=== PATIENT | male | born 1955 | race Caucasian/White ===

== ENCOUNTER 2021-10-31 02:51 | Outpatient (CLI) | payer BC, SELFPAY ==
[2021-10-31 10:08] LABS: MCH 31.1 pg (27.0-33.0); MCHC 34.1 % (32.0-36.0); MCV 91 fL (80-95); MPV 10.1 fL (8.0-11.0); Platelet Count 244 10^3/uL (130-400); RBC 4.83 10^6/uL (4.36-5.78); RDW 12.1 % (11.8-14.1); RDW-SD 40.4 fL
[2021-10-31 10:25] LABS: ALT 22 U/L (16-63); AST 16 U/L (15-37); Albumin 3.8 g/dL (3.4-5.0); Alkaline Phosphatase 84 U/L (46-116); Anion Gap 7.4 mmol/L (3-11); BUN 22 mg/dL (7-18); Bilirubin, Total 0.8 mg/dL (0.2-1.0); CO2 30.6 mmol/L (21.0-32.0); CREATININE 0.9 mg/dL (0.70-1.30); Calcium 8.9 mg/dL (8.5-10.1); Calculated LDL 133 mg/dL (<100); Chloride 101 mmol/L (98-107); Cholesterol 207 mg/dL (<200); Glucose 97 mg/dL (74-106); HDL Cholesterol 56 mg/dL (40-60); Potassium 4.6 mmol/L (3.5-5.1); Sodium 139 mmol/L (136-145); Total Protein 7.2 g/dL (6.4-8.2); Triglyceride 91 mg/dL (<150)
[2021-10-31 19:06] LABS: PSA, Screening 0.3 ng/mL (<=4.5)
[2021-11-01 09:45] LABS: Hepatitis C Ab w Rflx HCV PCR Negative (Negative)
[2021-11-01 09:52] LABS: Lyme Ab w Rflx to Lyme Confirm Negative (Negative)
[2021-11-02 16:18] LABS: Anaplasma phagocytophilum Negative (Negative); B. miyamotoi PCR Negative (Negative); Babesia divergens/MO-1 Negative (Negative); Babesia duncani Negative (Negative); Babesia microti Negative (Negative); Ehrlichia chaffeensis Negative (Negative); Ehrlichia ewingii/canis Negative (Negative); Ehrlichia muris eauclairensis Negative (Negative)
== END 2021-10-31 02:52 | disposition home or self-care (01) ==
LOC: LBO 02:51
PROVIDERS: PCP Nurse Practitioner; Visit Provider Nurse Practitioner
DX: Z00.00 Encounter for general adult medical examination without abnormal findings
CPT/HCPCS: 36415; 80053; 80061; 84153; 85027; 86803; 87798; 86618

== ENCOUNTER 2022-08-08 09:45 | Outpatient (REF) | payer MEDICARE, SELFPAY | END 2022-08-08 09:46 | disposition home or self-care (01) | LOC: LBN 09:45 | PROVIDERS: PCP Nurse Practitioner; Referring Provider Nurse Practitioner; Visit Provider Nurse Practitioner | DX: R31.9 Hematuria, unspecified (principal) | CPT/HCPCS: 87086 ==

== ENCOUNTER 2022-08-30 00:41 | Outpatient (CLI) | payer MEDICARE, SELFPAY ==
--- NOTE | 2022-08-30 08:00 | DI.CT_ITS ---
Exam(s) CT ABDOMEN PELVIS WO/W EXAM: CT ABDOMEN PELVIS WO/W CLINICAL HISTORY: New episode hematuria,Former smoker,R31.0. TECHNIQUE: Imaging Protocol: Axial computed tomography images with coronal and sagittal reformatted images were created and reviewed CONTRAST MATERIAL: Intravenous: Omnipaque-350 100cc Oral: None COMPARISON: No exams were available for comparison FINDINGS: VISUALIZED LUNG BASES: No nodules nor pleural effusions evident. ABDOMEN: There is no ascites. LIVER: There are no focal hepatic lesions evident. No dilated intrahepatic ducts. GALLBLADDER/BILIARY: No obvious gallbladder pathology. CBD is not dilated. PANCREAS: No evidence of pancreatic mass nor dilatation of the pancreatic duct. SPLEEN: Spleen is not enlarged. No obvious intrasplenic lesions. Splenic and portal veins are paten t. ADRENALS: There are no significant adrenal masses. KIDNEYS:No cysts evident. No solid renal masses. No calculi nor hydronephrosis.. ABDOMINAL AORTA: Abdominal aorta is not enlarged. LYMPH NODES:There is no retroperitoneal nor paraaortic adenopathy. ABDOMINAL WALL: No evidence of significant anterior abdominal wall nor inguinal hernia. GI: There is no evidence of bowel obstruction, free air, nor abscess. PELVIS: GI: No evidence of appendicitis.There is extensive sigmoid diverticulosis. No obvious acute divertic ulitis. LYMPH NODES: There is no intrapelvic nor inguinal adenopathy. REPRODUCTIVE: Mildly enlarged prostate. URINARY BLADDER: There is an ominous mass in the left side of the urinary bladder wall which is suspi cious for neoplasm and measures approximately 3 cm length along the wall by 1.4 cm. This is adjacent to the ureterovesical junction on the left side but the ureter is not dilated. There are no calculi in the urinary bladder. OSSEOUS: No fractures and no significant osseous lesions. IMPRESSION: 1. There is a mass in the wall of the left side of the urinary bladder highly suspicious for neoplasm . This is adjacent to the left ureterovesical junction but there is no dilatation of the left ureter at this time. 2. No significant focal findings in the kidneys. 3. Extensive sigmoid diverticulosis. No evidence of acute diverticulitis. 4. Mildly enlarged prostate gland. Wet read created. RADIATION DOSE DELIVERED: 2,946.28mGy.cm Total DLP DATA REPOSITORY: All CT scans at this facility are submitted to the National Radiology Data Registry (NRDR) Dose Index Registry (DIR) with the [employer] (ACR). RADIATION OPTIMIZATION: All CT scans at this facility use at least one of these dose optimization te chniques: automated exposure control; mA and/or kV adjustment per patient size (includes targeted exa ms where dose is matched to clinical indication); or iterative reconstruction.
[2022-08-30 12:33] LABS: CREATININE 0.9 mg/dL (0.70-1.30); Estimated GFR 93.03 (mL/min/1.73m2)
[2022-08-30] MEDS: Omnipaque 350 MG/ML 100 ML BTL IJ (13:06)
[2022-08-30] MEDS: Normal Saline - Diluent 50 ML VIAL IJ (13:09)
== END 2022-08-30 01:01 ==
LOC: DI 00:41
PROVIDERS: PCP Nurse Practitioner; Visit Provider Nurse Practitioner
DX: R31.0 Gross hematuria (principal); Z87.891 Personal history of nicotine dependence
CPT/HCPCS: 74178; 82565; J3490

== ENCOUNTER → 2022-09-02 14:02 | Outpatient (BNVA) | payer MEDICARE, SELFPAY | PROVIDERS: PCP Nurse Practitioner; Referring Provider Nurse Practitioner; Visit Provider Urology | DX: N32.89 Other specified disorders of bladder (principal) | CPT/HCPCS: 99204 ==

== ENCOUNTER 2022-09-03 06:05 | Day surgery (SDC) | payer MEDICARE, SELFPAY ==
[2022-09-03] VITALS (9 sets, daily range): BP systolic 85–106; BP diastolic 49–77; PULSE 48–81; RESP 15–18; TEMP 36–36.5; O2SAT 96–99; BMI 23.6
--- NOTE | 2022-09-03 06:35 | W.PM.HP.N ---
Date of service: 09/03/22 Time of Service: 06:35 Assessment and Plan Assessment and plan (1) Bladder mass: Status: Acute Assessment and plan: We will perform cystoscopy with transurethral resection of the identified bladder mass. His follow-up treatments and prognosis will really depend on the pathology. History of Present Illness History of Present Illness Chief Complaint: Bladder mass Narrative: This is a 67-year-old gentleman who noticed gross painless hematuria less than a month ago. He presented to his primary care provider. His urine culture showed no bacterial infection. A CT urogram was obtained and there was a mass identified on the left side of the bladder. He presents now for transurethral resection of his bladder mass. He does have a history of smoking but quit over 30 years ago. He has no known bleeding disorders. He has no family history of urologic malignancy. Review of Systems Narrative: No fevers or chills No vision change or dysphasia No diabetes or thyroid dysfunction No shortness of breath, cough or hemoptysis No chest pain or palpitations No nausea, vomiting, hepatitis, ulcers, jaundice, diarrhea or constipation History of migraines. He has taken [id number] Excedrin Migraine in the past but his last dose was over 3 weeks ago. No seizures, strokes or peripheral neuropathy No bleeding disorders or anemia No gout PFSH All Active Problems (Updated 09/02/22 @ 16:19 by Francisco J Harris MD) Bladder mass (Acute) Corns and callosities (Acute) Family History (Updated 10/23/21 @ 08:53 by Justyna Henriquez RN) Sister Breast cancer Social History (Updated 11/15/21 @ 09:15 by Meche Norman LPN) Smoking/Tobacco Use Status: Former Tobacco Use Tobacco: How many years used: 5 Second Hand Exposure: No Smoking risk assessment performed?: Yes Alcohol Intake: current Alcohol Intake frequency: a few times a month Alcohol type: wine Counseling given: No Drug use: Occasionally Substance use type: marijuana Adopted: No Caregiver/Support person: No Foster care: No Housing: house Number of Children: 0 Communication Needs: None Education Level: college Details: associate's degree Do you need help understanding health information?: Rarely current occupation: musician Pets and animals: Yes Pets and animals: dog(s) Do you think of yourself as: straight/heterosexual Current gender identity: male What is your relationship status?: How often do you talk on the phone with friends or family?: twice per week How often do you get together with friends or relatives?: twice per week Do you belong to any clubs or organized social groups?: no Panel score (0-1 are the most socially isolated patients): 1 What type of physical activity do you participate in: walking Duration: 15-30 minutes/day Frequency: 3-4 times per week Jessica/Catholic: None Special jessica needs: No Seatbelt use: always Drive intox or ride w/intox hammer driver: No Meds Allergies and Home Medications Allergies Allergy/AdvReac Type Severity Reaction Status Date / Time Penicillins Allergy Unknown Verified 09/03/22 06:20 Home Medications Medication Instructions Recorded Confirmed Type Unknown [No Known Home Meds] 10/23/21 09/03/22 History Exam Narrative Exam Narrative: He appears comfortable but nervous His vital signs are documented elsewhere This chest wall motion is normal. His lungs are clear Cardiac : regular rate and rhythm with no murmurs His abdomen is soft with no mass He is awake and alert Time Spent Time spent with Patient: <40 minutes Time was spent: other
[2022-09-03] MEDS: Ciprofloxacin 500 MG TAB PO (06:44)
--- NOTE | 2022-09-03 06:54 | W.ANESPRE ---
General Info Date of Service Date Performed: 09/03/22 Height: 6 ft 3 in Weight: 85.9 kg Body Mass Index (BMI): 23.6 Surgical Procedure: Operation Date: 09/03/22 07:40 Proposed Procedure Side Surgeon p Transurethral Resection Bladder Tumor Francisco J Harris MD Meds Allergies and Home Medications Allergies Allergy/AdvReac Type Severity Reaction Status Date / Time Penicillins Allergy Unknown Verified 09/03/22 06:20 Home Medication Medication Instructions Recorded Unknown [No Known Home Meds] 10/23/21 Current Visit Medications: Current Medications Generic Name Dose Route Start Last Admin Trade Name Freq PRN Reason Stop Dose Admin Ciprofloxacin HCl 500 mg 09/03/22 06:00 09/03/22 06:44 Ciprofloxacin 500 Mg Tab PO 09/03/22 16:00 500 mg PREOP RAFFY Administration Ringer's Solution 1,000 mls @ 80 mls/hr 09/03/22 06:00 IV 10/02/22 23:59 INFUSION RAFFY IV Miscellaneous Supplies 1 each 09/03/22 06:00 Iv Access IV 10/02/22 23:59 DIRECTED RAFFY Sodium Chloride 0 ml 09/03/22 06:00 Normal Saline Flush 10 Ml Syr IV 10/02/22 23:59 PRN PRN Sodium Chloride 0 ml 09/03/22 06:00 Normal Saline 10 Ml Vial IJ 10/02/22 23:59 DIRECTED PRN Sterile Water 0 ml 09/03/22 06:00 Water,Injection,Sterile 10 Ml Vial IJ 10/02/22 23:59 DIRECTED PRN PFSH Active Problems Active Problems: Problem Status Onset Code Bladder mass N32.89 Corns and callosities L84 Tobacco Smoking/Tobacco Use Status: Former Tobacco Use Passive smoking exposure: No Second hand exposure: No Alcohol Alcohol Intake: current Alcohol intake frequency: a few times a month Alcohol type: wine Substance Use Substance use: Occasionally Substance use type: marijuana Vital Signs and Lab Results Vital Signs Most Recent Vital Signs in EMR: Most Recent Vital Signs Temp Pulse Resp BP Pulse Ox 36.5 C 81 16 103/76 97 09/03/22 06:21 09/03/22 06:21 09/03/22 06:21 09/03/22 06:21 09/03/22 06:21 Lab Results Blood Type / Crossmatch: No Data to Display Complete Blood Count: No Data to Display Complete Metabolic Panel: Creatinine 0.9 mg/dL (0.70-1.30) 08/30/22 12:10 Est GFR (CKD-EPI 2020) 93.03 (mL/min/1.73m2) 08/30/22 12:10 Liver Function Panel: No Data to Display Coagulation Panel: No Data to Display Cardiac Panel: No Data to Display Arterial Blood Gas: No Data to Display Venous Blood Gas: No Data to Display Pancreas Panel: No Data to Display Thyroid Panel: No Data to Display Infectious Disease: No Data to Display Blood Cultures: No Data to Display Toxicology Panel: No Data to Display Anesthesia Assessment and Plan Anesthesia History Personal History: No History of General Anesthesia Family History: No Family History of Anesthesia Complications Exercise Tolerance Exercise Tolerance: Metabolic Equivalents>4 Pertinent Negatives Pertinent Negatives: No Symptoms of GERD, No Major Cardiovascular Symptoms or Complaints, No Major Pulmonary Symptoms or Complaints and No History of CVA/TIA Cardiac & Pulmonary Exam Cardiac Exam: Normal S1/S2 Heart Sounds Pulmonary Exam: Clear Bilateral Breath Sounds Implantable Cardiac Device Does patient have a Pacemaker or an ICD?: No Airway Exam Known Difficult Airway: No Mallampati Class: 2 Mouth Opening: Normal (> 3cm) Thyromental Distance: Greater than 3 cm Neck Range of Motion: Full ROM Neck Circumference: Normal Teeth Condition: Normal Dentition and Generalized Poor Dentition ASA Classification ASA Score: ASA 2 Emergency Case?: No NPO Status NPO Status: NPO Clears >2 hours, Solids >8 hours Anesthesia Plan Resuscitation Status: Full Code Anesthesia Technique: General Anesthesia Airway Planned: Natural Airway Monitors Used: Standard Monitors
[2022-09-03] MEDS: Lactated Ringers 1,000 ML 80 ML IV (07:03)
[2022-09-03] MEDS: Lidocaine 2% Jelly 6 ML SYR (07:50)
--- NOTE | 2022-09-03 08:09 | BLADDER_PTH ---
PATIENT: Shadi Castaneda LOC: [facility] U#:[id number] AGE/SX: 67/M ROOM: RE09/03/[address]: Francisco J Harris MD : [id number] BED: DIS: 09/03/2022 SPEC #: [id number] RECD: 09/03/22 13:00 STATUS: GISELLE REBoris #: [id number] MED: 09/03/22 08:[address]: Francisco J Harris DEPT: Surgical Specimen RECD BY: Suyapa Ortega ENTERED: 09/03/22 13:01 SP TYPE: Bladder OTHR DR: Chastity Amor APRN Tissues: 1 - BLADDER BIOPSY Procedures: GROSS AND MICRO LEVEL 5 Comments: [id number]
--- NOTE | 2022-09-03 08:14 | W.PM.DSUDISC ---
Date of service: 09/03/22 Time of Service: 08:14 Discharge Plan Disposition Patient Disposition: Home Condition: Stable Discharge Details Attending Provider: Francisco J Harris Primary Care Provider: Chastity Amor Home Meds and New Rx's Prescriptions: No Action No Known Home Meds Discharge Instructions Additional Instructions: archibald catheter to legbag followup @ 1 week for catheter removal and pathology results Stand Alone Forms: Anesthesia Discharge Inst., Lachelle Cook (DSU) Activity:: no lifting over 10 pounds for @ 1 week Shower/Bathe:: 24 hours Diet:: As Tolerated Discharge Orders Discharge Orders: Discharge Order (Routine); Ordered 09/03/22 Ordered By: Francisco J Harris DS: Diagnosis Discharge Diagnosis (1) Bladder mass: Status: Acute
--- NOTE | 2022-09-03 08:17 | W.PM.OP ---
Date of service: 09/03/22 Time of Service: 08:17 Operative Note Operative Note DATE OF PROCEDURE: 09/03/22 PRE-OP DIAGNOSIS: Bladder mass PROCEDURE: Cystoscopy with TUR Bladder tumor SURGEON: Francisco J Harris ANESTHESIA TYPE: General:No Airway Refer to Anesthesia Record ESTIMATED BLOOD LOSS: 20 PATHOLOGY: other (Bladder tumor) COMPLICATIONS: None Patient was transported to: same day Patient's condition: stable Implants: 18 [place] archibald with 10 cc sterile water in balloon Indications: This is a 67-year-old gentleman who had an episode of gross painless hematuria. He did pass a clot. His urine culture showed no bacterial infection. A CT urogram demonstrated a mass on the left side of the bladder. He presents for transurethral resection of his bladder mass. 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 He was given a dose of preoperative oral antibiotics. After successful induction of general anesthesia, he was placed in the dorsal lithotomy position. His genitalia was prepped and draped. 2% Xylocaine jelly was instilled into the urethra to act as a local anesthetic. A 24 [place] resectoscope sheath was passed through the urethra into the bladder. The urethra and bladder were inspected with the 30 degree lens and the visual obturator. The pendulous, bulbar and membranous urethra's appeared normal with no papillary lesions. The bladder neck was entered and the bladder mucosa was inspected. Both ureteral orifices appeared normal with no blood coming from either side. Just behind the left ureteral orifice on the left lateral wall, there was a papillary lesion that measured between 2 and 5 cm. There was some adherent clot and necrotic tissue. No active bleeding was seen. We then utilized the Slicethepie resectoscope and bipolar cautery to perform transurethral resection of the affected area. All resected tissue was evacuated and sent to pathology for permanent section. Base of the resection site was cauterized with the ball electrode. No residual tumor was identified. Bimanual examination revealed a mobile bladder with no pelvic wall fixation. The bladder was filled with irrigant. The resectoscope was removed. An 18 [place] Archibald catheter was passed through the urethra into the bladder. The catheter balloon was inflated with 10 cc of sterile water. The catheter was hooked to gravity drainage. He tolerated the procedure well with no complications.
[2022-09-03] MEDS: ACETAMINOPHEN 1,000 MG/100 ML BTL 400 MG IVPB (08:36)
[2022-09-03] MEDS: Phenazopyridine 200 MG TAB PO (08:46)
[2022-09-03] MEDS: Hyoscyamine 0.125 MG SL/ORAL/CHEW PO (09:41)
--- NOTE | 2022-09-03 10:26 | W.ANESPOSTOP ---
Postoperative Evaluation Date, Time and Location Date Performed: 09/03/22 Time Performed: 10:26 Patient Location: Day Surgery Unit Vital Signs Most Recent Imported Vital Signs: Most Recent Vital Signs Temp Pulse Resp BP Pulse Ox 36 C L 66 16 106/77 99 09/03/22 10:10 09/03/22 10:10 09/03/22 10:10 09/03/22 10:10 09/03/22 10:10 Pain Score Most Recent Pain Score: Most Recent Pain Score Pain Level 2 09/03/22 09:30 Assessment Mental Status: Awake (Alert & Oriented to Patient Baseline) Airway and Respiratory Function: Patent airway with normal (patient baseline) respiratory exam Cardiovascular Function: Hemodynamically Stable Hydration Status: Adequately Hydrated Nausea & Vomiting: No Nausea or Vomiting Pain: Pain is tolerable per patient (no pain but feeling of urgency secondary to archibald) Peripheral Nerve Block: Patient did not receive a nerve block
== END 2022-09-03 11:13 | disposition home or self-care (01) ==
PROVIDERS: PCP Nurse Practitioner; Visit Provider Urology
PROC: 0TBB8ZZ Excision of Bladder, Via Natural or Artificial Opening Endoscopic (ICD-10-PCS; CPT 52235; principal; 2022-09-03 07:30)
DX: N32.89 Other specified disorders of bladder (principal); R31.0 Gross hematuria
CPT/HCPCS: 52235; 88305; 88307; J0131; J1100; J2250; J2405; J3010; J3490

== ENCOUNTER → 2022-09-09 07:46 | Outpatient (BNVA) | payer MEDICARE, SELFPAY | PROVIDERS: PCP Nurse Practitioner; Referring Provider Nurse Practitioner; Visit Provider Nurse Practitioner Gerontology | DX: Z46.6 Encounter for fitting and adjustment of urinary device (principal); N32.89 Other specified disorders of bladder | CPT/HCPCS: 99212 ==

== ENCOUNTER → 2022-09-20 14:38 | Outpatient (BNVA) | payer MEDICARE, SELFPAY | PROVIDERS: PCP Nurse Practitioner; Referring Provider Nurse Practitioner; Visit Provider Urology | DX: C67.9 Malignant neoplasm of bladder, unspecified (principal); Z48.816 Encounter for surgical aftercare following surgery on the genitourinary system ==

== ENCOUNTER 2022-09-21 07:14 | Emergency (ER) | payer MEDICARE, SELFPAY ==
[2022-09-21 07:19] VITALS: BP 121/79; PULSE 74; RESP 15; TEMP 36.5; O2SAT 99
[2022-09-21 07:59] LABS: Bilirubin Color Interference (Negative); Blood Color Interference (Negative); Clarity Cloudy (Clear); Glucose Color Interference mg/dL (Negative); Ketones Color Interference mg/dL (Negative); Leukocyte Esterase Color Interference (Negative); Nitrite Color Interference (Negative); Urobilinogen Color Interference mg/dL (Up to 0.2)
[2022-09-21 08:01] LABS: C & S Indicated? Yes
--- NOTE | 2022-09-21 08:15 | ED.GENADUL_ITS ---
Discharge Plan Disposition Patient Disposition: Home Condition: Stable Discharge Details Clinical Impression: Hematuria, Urinary obstruction Primary Care Provider: Chastity Amor ED Provider: Mahendra Soriano Home Meds and New Rx's Prescriptions: Continued hyoscyamine sulfate 0.125 mg tablet, sublingual 0.25 mg sublingual Q4H PRN (Reason: bladder spasms) Qty: 40 0RF Patient Comments: not taking 09/21/22 CT Discharge Instructions Instructions: Archibald Catheter Placement and Care (ED) Additional Instructions: follow up with Dr. Harris this week if you have severe pain, fevers or feel more ill Medical Decision Making 67 yo male with no significant pmhx comes in with blood in urine and difficulty emptying bladder since yesterday. HE had a cystoscopy earlier this month and had a mass removed. He had been doing well until yesterday when he started to have the blood in his urine and difficulty emptying his bladder. He denies fevers, dysuria, abdominal pain. He tried urinating here and on bladder scan is over 400cc. Suspect this is post op bleeding and likely had a scab that came off. I did discuss with his urologist Dr. Harris who recommended placing a archibald and hand irrigation, if it is draining he can f/u with him this week. Discussed with pt and he gives verbal consent to proceed. nursing placed archibald and had return of 700cc of urine that is blood tinged, no abdominal tenderness, he feels improved. He is stable for d/c, advised to f/u with urology this week, return precautions given. Do not feel antibiotics at this time indicated Differential Diagnosis Differential Diagnosis: cystitis, post op bleeding HPI General Mode of arrival: ambulatory . Date/Time Provider Initiated Documentation: 09/21/22 07:48 . Limitations to Documentation: no limitations . Information obtained by: patient . History of Present Illness 67 year old M presents to the emergency department with the chief complaint of blood in urine, described as moderate, Patient started experiencing this day(s) (1) and it has been constant. No relieving factors improve symptom(s), No exacerbating factors reported . Patient notes no other symptoms.. Patient did receive the following treatments prior to arrival, none Related Data Home Medications Medication Instructions Recorded Confirmed hyoscyamine sulfate 0.125 mg 0.25 mg sublingual Q4H PRN bladder 09/03/2209/09 sublingual tablet spasms #40 tabs Previous Rx's Medication Instructions Recorded hyoscyamine sulfate 0.125 mg 0.25 mg sublingual Q4H PRN bladder 09/03/22 sublingual tablet spasms #40 tabs Allergies Allergy/AdvReac Type Severity Reaction Status Date / Time Penicillins Allergy Unknown Verified 09/21/22 07:25 General Stated Complaint: Urinary REYNA: 3 Review of Systems All systems reviewed & are unremarkable except as noted in HPI and below Constitutional Constitutional: Denies chills, Denies fever(s) and Denies weakness Cardiovascular Cardiovascular: Denies chest pain and Denies dyspnea Respiratory Respiratory: Denies cough and Denies dyspnea Gastrointestinal Gastrointestinal: Denies abdominal pain, Denies nausea and Denies vomiting Integumentary/Breasts Skin/Breast: Denies rash Neurologic Neurologic: Denies weakness PFSH All Active Problems (Updated 09/21/22 @ 09:47 by Mahendra Soriano MD) Hematuria (Acute) Urinary obstruction (Acute) Bladder cancer (Acute) Bladder mass (Acute) Corns and callosities (Acute) Family History (Updated 10/23/21 @ 08:53 by Justyna Henriquez RN) Sister Breast cancer Social History (Updated 11/15/21 @ 09:15 by Meche Norman LPN) Smoking/Tobacco Use Status: Former Tobacco Use Tobacco: How many years used: 5 Second Hand Exposure: No Smoking risk assessment performed?: Yes Alcohol Intake: current Alcohol Intake frequency: a few times a month Alcohol type: wine Counseling given: No Drug use: Occasionally Substance use type: marijuana Adopted: No Caregiver/Support person: No Foster care: No Housing: house Number of Children: 0 Communication Needs: None Education Level: college Details: associate's degree Do you need help understanding health information?: Rarely current occupation: musician Pets and animals: Yes Pets and animals: dog(s) Do you think of yourself as: straight/heterosexual Current gender identity: male What is your relationship status?: How often do you talk on the phone with friends or family?: twice per week How often do you get together with friends or relatives?: twice per week Do you belong to any clubs or organized social groups?: no Panel score (0-1 are the most socially isolated patients): 1 What type of physical activity do you participate in: walking Duration: 15-30 minutes/day Frequency: 3-4 times per week Jessica/Oriental Orthodox: None Special jessica needs: No Seatbelt use: always Drive intox or ride w/intox regional o[employer] company driver: No Exam Const General: no acute distress Orientation: alert HENMT Head: normal to inspection Ears: external ears normal General nose exam: external nose normal Mouth: moist mucous membranes Eyes General: appearance normal, both eyes and all related structures Neck Neck: normal visual inspection Resp Effort & Inspection: normal respiratory effort and able to speak in complete sentences Cardio Rate: regular rate GI Palpation: soft and nontender Skin General skin exam: no rashes or lesions noted Neuro General: patient alert and patient oriented x3 Extrem General: normal to inspection Psych Mental Status: mental status grossly normal Course Vital Signs Vital signs: Vital Signs Temperature 36.5 C 09/21/22 07:19 Pulse 74 09/21/22 07:19 Respiratory Rate 15 09/21/22 07:19 Blood Pressure 121/79 09/21/22 07:19 Pulse Oximetry 99 09/21/22 07:19 Temperature 36.5 C 09/21/22 07:19 Temperature Source Temporal Artery Scan 09/21/22 07:19 Pulse 74 09/21/22 07:19 Respiratory Rate 15 09/21/22 07:19 Respiratory Effort Normal 09/21/22 07:24 Blood Pressure 121/79 09/21/22 07:19 Blood Pressure Position Sitting 09/21/22 07:19 Pulse Oximetry 99 09/21/22 07:19 Oxygen Delivery Method Room Air 09/21/22 07:19 Oxygen Flow Rate 0 09/21/22 07:19 Pain Level 0 09/21/22 07:41 Lab/Test Results Lab/Test Results: 09/21/22 07:40 Urine - Reflex from Ua Urine Culture - Pending Laboratory Tests Range/Units 09/21/22 07:40 Urine Color (Yellow) Red Urine Clarity (Clear) Cloudy Urine pH (5-8) Ur Specific [place] (1.005-1.025) 1.010 Urine Protein (Negative) mg/dL Color Interference Urine Ketones (Negative) mg/dL Color Interference Urine Blood (Negative) Color Interference Urine Nitrite (Negative) Color Interference Urine Bilirubin (Negative) Color Interference Urine Urobilinogen (Up to 0.2) mg/dL Color Interference Ur Leukocyte Esterase (Negative) Color Interference Urine RBC (0-2) HPF Urine WBC (0-5) HPF Ur Epithelial Cells Not Applicable Urine Crystals Not Applicable Urine Bacteria Not Applicable Urine Mucus Not Applicable Ur Culture Indicated? Yes Urine Glucose (Negative) mg/dL Color Interference
[2022-09-21] MEDS: Lidocaine 2% Jelly 6 ML SYR (09:19)
== END 2022-09-21 10:01 | disposition home or self-care (01) ==
PROVIDERS: Student in an Organized Health Care Education/Training Program; Emergency Provider Emergency Medicine; PCP Nurse Practitioner
DX: R31.9 Hematuria, unspecified (principal); N13.9 Obstructive and reflux uropathy, unspecified
CPT/HCPCS: 51702; 99283; 81003; 81015; 87086

== ENCOUNTER 2022-09-23 18:53 | Emergency (ER) | payer MEDICARE, SELFPAY ==
[2022-09-23 18:58] VITALS: BP 106/74; PULSE 101; RESP 18; TEMP 37.1; O2SAT 98
--- NOTE | 2022-09-23 19:34 | ED.GENADUL_ITS ---
Discharge Plan Disposition Patient Disposition: Home Condition: Improving Discharge Details Clinical Impression: Complication, blocked Fagan catheter Primary Care Provider: Chastity Amro ED Provider: Nereida Garcia Home Meds and New Rx's Prescriptions: No Action No Known Home Meds Discharge Instructions Instructions: Fagan Catheter Placement and Care (ED) Additional Instructions: You received 3000 ml of bladder irrigation to clear. Please continue to monitor output. Follow up with Dr. Harris as previously scheduled. Call Dr. Harris if any further problems or concerns. Return to ED if no drainage or bladder fullness resumes despite attempt of irrigation at home. Follow up with urology/primary care provider in 3-5 days. Return to ED sooner if any worsening or concerns. Increase oral fluids. Referrals: Francisco J Harris MD [ [facility] STAFF PHYSICIAN] - 1 week Chastity Amor NP [Primary Care Provider] - Discharge Data Discharge Date/Time-TO BE ENTERED AT DEPARTURE: 09/23/22 23:07 Medical Decision Making 67-year-old male with a past medical history of bladder cancer, bladder mass Fagan catheter placement and recent mass removal 2 weeks ago presents to the ER with decreased drainage from his Fagan catheter. Patient was seen here on Friday for similar. At that time he did have it flushed which he reports did improve his symptoms somewhat he states that since this morning he noticed increased clots and decreased output. Bladder scan upon arrival shows greater than 1000 mL in his bladder. He is somewhat uncomfortable but not severely. 4: Informed by full time staff interpreter that bladder scan was greater than 1000 Will instruct full time staff interpreter to hand irrigate. 2053: Spoke with Dr. Harris who recommends continuous bladder irrigation, If he tolerates one bag ok and has full return, he can be discharged to home with a port plugged, if not clearing may need to be admitted. 2156: 1 bag of continuous bladder irrigation is finished, output is completely clear. All 3000 output since irrigation began. Patient reports he feels no pressure or abdominal pain. Will observe for the next 10 to 15 minutes and plan to discharge home as long as there is no bleeding or clots noted and the Fagan continues to drain. Drainage has remained clear after the irrigation no further bleeding or clots noted patient to be discharged home. Instructed to follow-up with urology or return to the ER for any worsening or concerns. This text was generated using Nuance dictation system, please disregard any oddities of phrase or misspellings.. Medical Records Medical records reviewed: Yes I reviewed the patient's medical records. HPI General Mode of arrival: ambulatory . Date/Time Provider Initiated Documentation: 09/23/22 19:04 . Limitations to Documentation: no limitations . Information obtained by: patient, RN notes reviewed and old records reviewed . HPI Narrative: 67-year-old male with a past medical history of bladder cancer, bladder mass Fagan catheter placement and recent mass removal 2 weeks ago presents to the ER with decreased drainage from his Fagan catheter. Patient was seen here on Friday for similar. At that time he did have it flushed which he reports did improve his symptoms somewhat he states that since this morning he noticed increased clots and decreased output. Bladder scan upon arrival shows greater than 1000 mL in his bladder. He is somewhat uncomfortable but not severely. Related Data Home Medications Medication Instructions Recorded Confirmed Unknown [No Known Home Meds] 09/24/22 09/24/22 Allergies Allergy/AdvReac Type Severity Reaction Status Date / Time Penicillins Allergy Unknown Verified 09/23/22 19:00 General Stated Complaint: Urinary REYNA: 3 Review of Systems All systems reviewed & are unremarkable except as noted in HPI and below Genitourinary Genitourinary: Reports as per HPI and Reports other (Decreased Fagan Drainage) PFSH All Active Problems (Updated 09/23/22 @ 22:02 by Nereida Garcia NP) Hematuria (Acute) Urinary obstruction (Acute) Complication, blocked Fagan catheter (Acute) Bladder cancer (Acute) Bladder mass (Acute) Corns and callosities (Acute) Family History Sister Breast cancer Social History Smoking/Tobacco Use Status: Former Tobacco Use Tobacco: How many years used: 5 Second Hand Exposure: No Smoking risk assessment performed?: Yes Alcohol Intake: current Alcohol Intake frequency: a few times a month Alcohol type: wine Counseling given: No Drug use: Occasionally Substance use type: marijuana Adopted: No Caregiver/Support person: No Foster care: No Housing: house Number of Children: 0 Communication Needs: None Education Level: college Details: associate's degree Do you need help understanding health information?: Rarely current occupation: musician Pets and animals: Yes Pets and animals: dog(s) Do you think of yourself as: straight/heterosexual Current gender identity: male What is your relationship status?: How often do you talk on the phone with friends or family?: twice per week How often do you get together with friends or relatives?: twice per week Do you belong to any clubs or organized social groups?: no Panel score (0-1 are the most socially isolated patients): 1 What type of physical activity do you participate in: walking Duration: 15-30 minutes/day Frequency: 3-4 times per week Jessica/Jain: None Special jessica needs: No Seatbelt use: always Drive intox or ride w/intox auto crane driver: No Exam GI Inspection: normal to inspection Palpation: soft and other (Firmness around suprapubic abdomen Denies pain) Auscultation: normoactive bowel sounds Rectal Exam: other (Indwelling Fagan, See ) Other: Fagan catheter noted with yellow urine that is brown-tinged with clots. Small amount of drainage in the catheter however it is decreased. Course Vital Signs Vital signs: Vital Signs Temperature 37.1 C 09/23/22 18:58 Pulse 101 H 09/23/22 18:58 Respiratory Rate 18 09/23/22 18:58 Blood Pressure 106/74 09/23/22 18:58 Pulse Oximetry 98 09/23/22 18:58 Temperature 37.1 C 09/23/22 18:58 Temperature Source Temporal Artery Scan 09/23/22 18:58 Pulse 101 H 09/23/22 18:58 Respiratory Rate 18 09/23/22 18:58 Respiratory Effort Normal, Non-Labored 09/23/22 19:00 Blood Pressure 106/74 09/23/22 18:58 Pulse Oximetry 98 09/23/22 18:58 Oxygen Delivery Method Room Air 09/23/22 18:58 Oxygen Flow Rate 0 09/23/22 18:58
[2022-09-23 22:31] VITALS: BP 129/72; PULSE 72; RESP 16; TEMP 36.3; O2SAT 99
== END 2022-09-23 23:07 | disposition home or self-care (01) ==
PROVIDERS: Emergency Provider Registered Nurse Emergency; PCP Nurse Practitioner
DX: T83.091A Other mechanical complication of indwelling urethral catheter, initial encounter (principal); Z85.51 Personal history of malignant neoplasm of bladder
CPT/HCPCS: 99284; 99283

== ENCOUNTER → 2022-09-24 11:31 | Outpatient (BNVA) | payer MEDICARE, SELFPAY | PROVIDERS: PCP Nurse Practitioner; Referring Provider Nurse Practitioner; Visit Provider Urology | DX: R31.9 Hematuria, unspecified (principal); Z96.0 Presence of urogenital implants | CPT/HCPCS: 51701; 99213 ==

== ENCOUNTER 2022-10-17 16:48 | Outpatient (REF) | payer MEDICARE, SELFPAY | END 2022-10-17 16:49 | disposition home or self-care (01) | LOC: LBN 16:48 | PROVIDERS: PCP Nurse Practitioner; Visit Provider Surgery | DX: R30.0 Dysuria (principal) | CPT/HCPCS: 87077; 87086; 87186 ==

== ENCOUNTER 2022-11-05 09:30 | Outpatient (CLI) | payer MEDICARE, SELFPAY ==
[2022-11-05 08:54] LABS: Abs Immature Grans 0.04 10^3/uL (0.0-0.06); Absolute Basophil Count 0.02 10^3/uL (0.0-0.2); Absolute Eosinophil Count 0.02 10^3/uL (0.0-0.7); Absolute Lymphocyte Count 1.91 10^3/uL (1.2-3.4); Absolute Neutrophil Count 8.81 10^3/uL (1.2-6.7); Basophils % 0.2; Eosinophils % 0.2; HCT 41.5 % (40.0-50.0); HGB 14.5 g/dL (13.5-17.5); Immature Grans % 0.3; Lymphocytes % 16.3; MCHC 34.9 % (32.0-36.0); MCV 89 fL (80-95); MPV 9.9 fL (8.0-11.0); Monocytes % 7.7; Neutrophils % 75.3; Platelet Count 264 10^3/uL (130-400); RBC 4.68 10^6/uL (4.36-5.78); RDW 12.1 % (11.8-14.1); RDW-SD 39.6 fL
[2022-11-05 09:10] LABS: ALT 25 U/L (16-63); AST 18 U/L (15-37); Alkaline Phosphatase 80 U/L (46-116); Anion Gap 9.9 mmol/L (3-11); BUN 14 mg/dL (7-18); Bilirubin, Total 0.9 mg/dL (0.2-1.0); CO2 27.1 mmol/L (21.0-32.0); CREATININE 0.9 mg/dL (0.70-1.30); Calcium 9.1 mg/dL (8.5-10.1); Chloride 99 mmol/L (98-107); Estimated GFR 92.45 (mL/min/1.73m2); Glucose 98 mg/dL (74-106); Magnesium 1.8 mg/dL (1.8-2.4); Sodium 136 mmol/L (136-145); Total Protein 7.3 g/dL (6.4-8.2)
== END 2022-11-05 09:31 | disposition home or self-care (01) ==
LOC: LBO 09:31
PROVIDERS: PCP Nurse Practitioner; Visit Provider Internal Medicine
DX: C67.9 Malignant neoplasm of bladder, unspecified (principal)
CPT/HCPCS: 36415; 80053; 83735; 85025

== ENCOUNTER → 2022-11-06 07:48 | Outpatient (BNVA) | payer MEDICARE, SELFPAY | PROVIDERS: PCP Nurse Practitioner; Referring Provider Nurse Practitioner; Visit Provider Nurse Practitioner Gerontology | DX: N32.89 Other specified disorders of bladder (principal) | CPT/HCPCS: 99212 ==

== ENCOUNTER 2022-11-14 10:01 | Outpatient (CLI) | payer MEDICARE, SELFPAY ==
[2022-11-14 09:45] LABS: Abs Immature Grans 0.01 10^3/uL (0.0-0.06); Absolute Basophil Count 0.01 10^3/uL (0.0-0.2); Absolute Lymphocyte Count 1.36 10^3/uL (1.2-3.4); Absolute Monocyte Count 0.57 10^3/uL (0.1-0.8); Basophils % 0.2; Eosinophils % 1.9; HCT 42.5 % (40.0-50.0); HGB 14.7 g/dL (13.5-17.5); Immature Grans % 0.2; Lymphocytes % 26.4; MCH 31.3 pg (27.0-33.0); MCHC 34.6 % (32.0-36.0); MCV 90 fL (80-95); MPV 9.7 fL (8.0-11.0); Monocytes % 11.1; Neutrophils % 60.2; Platelet Count 239 10^3/uL (130-400); RDW 12.2 % (11.8-14.1); RDW-SD 40.5 fL; WBC 5.15 10^3/uL (4.4-10.8)
[2022-11-14 10:02] LABS: ALT 24 U/L (16-63); AST 16 U/L (15-37); Albumin 3.6 g/dL (3.4-5.0); Alkaline Phosphatase 96 U/L (46-116); Anion Gap 5.9 mmol/L (3-11); BUN 15 mg/dL (7-18); Bilirubin, Total 0.7 mg/dL (0.2-1.0); CO2 30.1 mmol/L (21.0-32.0); CREATININE 0.9 mg/dL (0.70-1.30); Calcium 9.2 mg/dL (8.5-10.1); Chloride 105 mmol/L (98-107); Estimated GFR 92.45 (mL/min/1.73m2); Glucose 107 mg/dL (74-106); Magnesium 1.9 mg/dL (1.8-2.4); Potassium 4.4 mmol/L (3.5-5.1); Sodium 141 mmol/L (136-145); Total Protein 7.2 g/dL (6.4-8.2)
== END 2022-11-14 10:02 | disposition home or self-care (01) ==
LOC: LBO 10:02
PROVIDERS: PCP Nurse Practitioner; Visit Provider Internal Medicine
DX: C67.9 Malignant neoplasm of bladder, unspecified (principal)
CPT/HCPCS: 36415; 80053; 83735; 85025

== ENCOUNTER 2022-11-15 07:07 | Day surgery (SDC) | payer MEDICARE, SELFPAY ==
[2022-11-15] VITALS (8 sets, daily range): BP systolic 103–126; BP diastolic 57–84; PULSE 68–77; RESP 12–18; TEMP 36.1–36.3; O2SAT 97–100; BMI 23.2
--- NOTE | 2022-11-15 06:28 | W.PREOPHP ---
Assessment and Plan Assessment and plan (1) Bladder cancer: Status: Acute Assessment and plan: We talked about Port-A-Cath, and the role in chemotherapy and other long-term intravenous infusion regimens. I discussed the risks and benefits of the surgery that include ultrasound-guided venous cannulation, and implantation of the catheter over guidewire. I think he has a good understanding of the risks of the procedure, he wishes to proceed as planned. History of Present Illness History of Present Illness Chief Complaint: Bladder cancer Narrative: 67 years old, and is recently diagnosed with bladder cancer. Plans are being made to proceed with chemotherapy, and he needs insertion of a Port-A-Cath. PFSH All Active Problems Corns and callosities (Acute) Bladder mass (Acute) Bladder cancer (Acute) 10/16/22 F/u with Radiology 10/23/22 [facility]/Onc - pt will be proceeding with ChemoRT Surgical History History of transurethral resection of bladder tumor (TURBT) Hx of cystoscopy Family History Sister Breast cancer Social History Smoking/Tobacco Use Status: Former Tobacco Use Quit Date: 04/28/89 Tobacco: How many years used: 5 Second Hand Exposure: No Smoking risk assessment performed?: Yes Alcohol Intake: current Alcohol Intake frequency: a few times a month Alcohol type: wine Counseling given: No Drug use: Occasionally Substance use type: marijuana Adopted: No Caregiver/Support person: No Foster care: No Household members: significant other Housing: house Number of Children: 0 Communication Needs: None Education Level: college Details: associate's degree Do you need help understanding health information?: Rarely current occupation: musician Pets and animals: Yes Pets and animals: dog(s) Do you think of yourself as: straight/heterosexual Current gender identity: male What is your relationship status?: How often do you talk on the phone with friends or family?: twice per week How often do you get together with friends or relatives?: twice per week Do you belong to any clubs or organized social groups?: no Panel score (0-1 are the most socially isolated patients): 1 What type of physical activity do you participate in: walking Duration: 15-30 minutes/day Frequency: 3-4 times per week Jessica/Hoahaoism: None Special jessica needs: No Seatbelt use: always Drive intox or ride w/intox courtesy van driver: No Working smoke detector in home: Yes Carbon monox detector in home: Yes Do you feel safe at home: Yes Do you feel safe in your relationship?: Yes Meds Allergies and Home Medications Allergies Allergy/AdvReac Type Severity Reaction Status Date / Time Penicillins Allergy Unknown Verified 11/15/22 07:37 Home Medications Medication Instructions Recorded Confirmed Type galrbdh-pptwpppfghaeb-xoyyenoq 250 1 tab PO DIRECTED 11/14/22 11/15/22 History mg-250 mg-65 mg tablet (Excedrin Migraine) tramadol 50 mg tablet 50 mg PO BID PRN pain #6 tabs 11/15/22 Rx Exam Resp Auscultation: clear to auscultation bilaterally Percussion: percussion normal Cardio Rate: regular rate Rhythm: regular rhythm Heart Sounds: S1 normal and S2 normal Extrem Other: Left chest and neck are normal. Normal pulses in the left hand. Normal range of motion and strength in the left hand.
--- NOTE | 2022-11-15 06:29 | PDOC.DSDIS_ITS ---
Date of service: 11/15/22 Time of Service: 09:17 Discharge Plan Disposition Patient Disposition: Home Condition: Good Discharge Details Reason For Visit: Insertion of subcutaneous Port-A-Cath Attending Provider: Karthikeyan Cordova Primary Care Provider: Chastity Amor Home Meds and New Rx's Prescriptions: New tramadol 50 mg tablet 50 mg PO BID PRN (Reason: pain) Qty: 6 0RF Rx Instructions: Take 1 tablet by mouth up to every 12 hours if needed for severe pain. Be careful as this medication can become addictive. This medication is quite st lena, and should be used with caution. Continued Excedrin Migraine 250-250-65 mg Tablet 1 tab PO DIRECTED Discharge Instructions Additional Instructions: Edward, We were able to place the Port-A-Cath like we talked about before the procedure. Everything went very smoothly. We used an ultrasound machine to guide into the appropriate blood vessel, and this was confirmed with real-time x-rays called fluoroscopy. He tolerated the procedure quite well. Expect to have a little bit of discomfort in the surgical site over the next 24 to 48 hours, but that should improve every day or thereafter. I would encourage you to keep the area clean and dry. It is fine to shower, and incisions can be washed with warm soapy water. You should pat them dry when you are done. They do not need any Band-Aids on them. It is okay to use your left arm in the usual fashion. Like I said before hand, however, just expect a little bit of discomfort as you move your shoulder. I have provided a prescription for some pain medications for you to take if needed. He will be fine to use the Port-A-Cath on Friday. If you have any questions at all, please do not hesitate to contact me at any time. Activity:: Activity as Tolerated Diet:: As Tolerated Discharge Orders Discharge Orders: Discharge Order (Routine); Ordered 11/15/22 Ordered By: Karthikeyan Cordova DS: Diagnosis Discharge Diagnosis (1) Bladder cancer: Status: Acute Asessment and Plan: Okay to start using Port-A-Cath in 48 hours
--- NOTE | 2022-11-15 06:31 | W.PM.OP ---
Date of service: 11/15/22 Time of Service: 09:15 Operative Note Operative Note DATE OF PROCEDURE: 11/15/22 PRE-OP DIAGNOSIS: Bladder cancer POST-OP DIAGNOSIS: same Port-A-Cath insertion for chemotherapy PROCEDURE: Insertion of subcutaneous Port-A-Cath SURGEON: Karthikeyan Cordova ANESTHESIA TYPE: Local By Surgeon and MAC Refer to Anesthesia Record ESTIMATED BLOOD LOSS: 5 PATHOLOGY: none sent COMPLICATIONS: None Patient was transported to: same day Patient's condition: stable Implants: Bard POwer port isp MRI implantable Port Indications: Camara a 67-year-old male with a new diagnosis of bladder cancer who requires chemotherapy. Findings: Uncomplicated insertion of left subclavian subcutaneous Port-A-Cath Procedure Description: After the patient was brought into the operating room, he was assisted onto the OR table. He was placed in the supine position, with the left lower extremity down to the side. He was assisted to a comfortable position. Next, general endotracheal anesthesia was induced without any difficulty. The left neck and shoulder were then prepped and draped in the usual fashion. With the assistance of real-time ultrasound guidance, I anesthetized the subcutaneous tissues along the trajectory of the and access. Next, again with real-time ultrasonography, I cannulated the left subclavian vein at the subclavian axillary junction. Guidewire was advanced to the atriocaval junction, and this was confirmed with fluoroscopy. Next, peel-away catheter was introduced over the guidewire. Catheter was measured to an appropriate length, and a small incision was made just below the access site over the left pectoralis muscle. The skin was incised with a scalpel, and the dissection was carried out with the Bovie cautery. Small pocket was bluntly dissected over the pectoralis fascia. The catheter was then advanced from the access site to the pocket using the tunneling device. Next, the distal end of the catheter was inserted through the peel-away introducer sheath, and again confirmed to be in appropriate position with fluoroscopy. The peel-away catheter was removed. The port was then flushed, and attached to the catheter. The cuff was secured in place with the appropriate connector according to the sports internship's instructions. The port was then affixed to the fascia with interrupted Prolene stitches. Surgical site was examined and found to be hemostatic. Subcutaneous tissues were closed with interrupted Vicryl stitches. The skin was closed with a running subcuticular stitch, and the skin was dressed with surgical glue. Patient was then awakened from anesthesia and transferred to the recovery unit.
--- NOTE | 2022-11-15 07:00 | DI.RAD_ITS ---
Exam(s) RF LINE PLACEMENT OR EXAM: RF LINE PLACEMENT OR CLINICAL HISTORY: port placement in or; bladder cancer. TECHNIQUE: Fluoroscopy was provided for the referring physician for guidance with placement of a por t.. COMPARISON: No exams were available for comparison FINDINGS: Please see procedure note for details. Fluoro time: 2.8 seconds RADIATION DOSE DELIVERED: veronica Norris=0.28 mGy
[2022-11-15] MEDS: Lactated Ringers 1,000 ML 80 ML IV (07:36)
--- NOTE | 2022-11-15 07:41 | ANES.PREOP_ITS ---
General Info Date of Service Date Performed: 11/15/22 Height: 6 ft 3 in Weight: 84.2 kg Body Mass Index (BMI): 23.2 Surgical Procedure: Operation Date: 11/15/22 08:40 Proposed Procedure Side Surgeon p Port-A-Cath Placement Karthikeyan Cordova MD Meds Allergies and Home Medications Allergies Allergy/AdvReac Type Severity Reaction Status Date / Time Penicillins Allergy Unknown Verified 11/15/22 07:37 Home Medication Medication Instructions Recorded fuscwke-gpancgzwkgmvp-kseudwku 250 1 tab PO DIRECTED 11/14/22 mg-250 mg-65 mg tablet (Excedrin Migraine) tramadol 50 mg tablet 50 mg PO BID PRN pain #6 tabs 11/15/22 Current Visit Medications: Current Medications Generic Name Dose Route Start Last Admin Trade Name Freq PRN Reason Stop Dose Admin Ringer's Solution 1,000 mls @ 80 mls/hr 11/15/22 06:00 11/15/22 07:36 IV 11/15/22 23:59 80 mls/hr INFUSION RAFFY Administration IV Miscellaneous Supplies 1 each 11/15/22 06:00 Iv Access IV 11/15/22 23:59 DIRECTED RAFFY Morphine Sulfate 2 mg 11/15/22 06:33 Morphine 4 Mg/Ml Syr IVP 12/15/22 06:32 Q1H PRN PRN Sodium Chloride 0 ml 11/15/22 06:00 Normal Saline Flush 10 Ml Syr IV 11/15/22 23:59 PRN PRN Sodium Chloride 0 ml 11/15/22 06:00 Normal Saline 10 Ml Vial IJ 11/15/22 23:59 DIRECTED PRN Sterile Water 0 ml 11/15/22 06:00 Water,Injection,Sterile 10 Ml Vial IJ 11/15/22 23:59 DIRECTED PRN PFSH Active Problems Active Problems: Problem Status Onset Code Corns and callosities L84 Bladder mass N32.89 Bladder cancer C67.9 Surgical History Surgical History History of transurethral resection of bladder tumor (TURBT) Hx of cystoscopy Tobacco Smoking/Tobacco Use Status: Former Tobacco Use Passive smoking exposure: No Second hand exposure: No Alcohol Alcohol Intake: current Alcohol intake frequency: a few times a month Alcohol type: wine Substance Use Substance use: Occasionally Substance use type: marijuana Vital Signs and Lab Results Vital Signs Most Recent Vital Signs in EMR: Most Recent Vital Signs Temp Pulse Resp BP Pulse Ox 36.3 C L 77 18 104/74 97 11/15/22 07:24 11/15/22 07:24 11/15/22 07:24 11/15/22 07:24 11/15/22 07:24 Lab Results Blood Type / Crossmatch: No Data to Display Complete Blood Count: White Blood Count 5.15 10^3/uL (4.4-10.8) 11/14/22 09:41 Red Blood Count 4.70 10^6/uL (4.36-5.78) 11/14/22 09:41 Hemoglobin 14.7 g/dL (13.5-17.5) 11/14/22 09:41 Hematocrit 42.5 % (40.0-50.0) 11/14/22 09:41 Platelet Count 239 10^3/uL (130-400) 11/14/22 09:41 Complete Metabolic Panel: Sodium 141 mmol/L (136-145) 11/14/22 09:41 Potassium 4.4 mmol/L (3.5-5.1) 11/14/22 09:41 Chloride 105 mmol/L (98-107) 11/14/22 09:41 Carbon Dioxide 30.1 mmol/L (21.0-32.0) 11/14/22 09:41 BUN 15 mg/dL (7-18) 11/14/22 09:41 Creatinine 0.9 mg/dL (0.70-1.30) 11/14/22 09:41 Est GFR (CKD-EPI 2020) 92.45 (mL/min/1.73m2) 11/14/22 09:41 Magnesium 1.9 mg/dL (1.8-2.4) 11/14/22 09:41 Calcium 9.2 mg/dL (8.5-10.1) 11/14/22 09:41 Albumin 3.6 g/dL (3.4-5.0) 11/14/22 09:41 Glucose 107 mg/dL (74-106) H 11/14/22 09:41 Liver Function Panel: Alanine Aminotransferase (ALT/SGPT) 24 U/L (16-63) 11/14/22 09: 41 Aspartate Amino Transf (AST/SGOT) 16 U/L (15-37) 11/14/22 09:41 Coagulation Panel: No Data to Display Cardiac Panel: No Data to Display Arterial Blood Gas: No Data to Display Venous Blood Gas: No Data to Display Pancreas Panel: No Data to Display Thyroid Panel: No Data to Display Infectious Disease: No Data to Display Blood Cultures: No Data to Display Toxicology Panel: No Data to Display Anesthesia Assessment and Plan Anesthesia History Personal History: No History of Anesthesia Complications Family History: No Family History of Anesthesia Complications Exercise Tolerance Exercise Tolerance: Metabolic Equivalents>4 Pertinent Negatives Pertinent Negatives: No Symptoms of GERD Cardiac & Pulmonary Exam Cardiac Exam: Normal S1/S2 Heart Sounds Pulmonary Exam: Clear Bilateral Breath Sounds Implantable Cardiac Device Does patient have a Pacemaker or an ICD?: No Airway Exam Known Difficult Airway: No Mallampati Class: 2 Mouth Opening: Normal (> 3cm) Thyromental Distance: Greater than 3 cm Neck Range of Motion: Full ROM Neck Circumference: Normal Teeth Condition: Normal Dentition and Generalized Poor Dentition ASA Classification ASA Score: ASA 2 Emergency Case?: No NPO Status NPO Status: NPO Clears >2 hours, Solids >8 hours Anesthesia Plan Resuscitation Status: Full Code Anesthesia Technique: General Anesthesia Airway Planned: LMA Monitors Used: Standard Monitors
[2022-11-15] MEDS: Heparin 500 UNITS/5 ML SYRINGE (08:48)
[2022-11-15] MEDS: Lidocaine 1% Pres-Free W/EPI 1/200,000 30 ML VIAL (08:54)
[2022-11-15] MEDS: Normal Saline 50 ML (08:54)
--- NOTE | 2022-11-15 10:12 | W.ANESPOSTOP ---
Postoperative Evaluation Date, Time and Location Date Performed: 11/15/22 Time Performed: 10:11 Patient Location: Day Surgery Unit Vital Signs Most Recent Imported Vital Signs: Most Recent Vital Signs Temp Pulse Resp BP Pulse Ox 36.3 C L 68 16 114/84 99 11/15/22 09:40 11/15/22 09:40 11/15/22 09:40 11/15/22 09:40 11/15/22 09:40 Pain Score Most Recent Pain Score: Most Recent Pain Score Pain Level 0 11/15/22 09:40 Assessment Mental Status: Awake (Alert & Oriented to Patient Baseline) Airway and Respiratory Function: Patent airway with normal (patient baseline) respiratory exam Cardiovascular Function: Hemodynamically Stable Hydration Status: Adequately Hydrated Nausea & Vomiting: No Nausea or Vomiting Pain: Pt. Denies Any Pain Peripheral Nerve Block: Patient did not receive a nerve block
== END 2022-11-15 10:15 | disposition home or self-care (01) ==
PROVIDERS: PCP Nurse Practitioner; Visit Provider Surgery
PROC: (CPT 36561; principal; 2022-11-15 08:30)
DX: C67.9 Malignant neoplasm of bladder, unspecified (principal)
CPT/HCPCS: 36561; 76937; 77001; C1788; J0690; J1100; J2001; J2405; J2704

== ENCOUNTER 2022-11-21 12:37 | Outpatient (RCR) | payer MEDICARE, SELFPAY ==
[2022-11-21] MEDS: Normal Saline Flush 10 ML SYR IVP (12:20)
[2022-11-21 13:13] LABS: ALT 23 U/L (16-63); AST 14 U/L (15-37); Albumin 3.6 g/dL (3.4-5.0); Alkaline Phosphatase 88 U/L (46-116); Anion Gap 8.2 mmol/L (3-11); BUN 17 mg/dL (7-18); Bilirubin, Total 0.7 mg/dL (0.2-1.0); CO2 27.8 mmol/L (21.0-32.0); CREATININE 0.9 mg/dL (0.70-1.30); Calcium 8.7 mg/dL (8.5-10.1); Chloride 100 mmol/L (98-107); Estimated GFR 92.45 (mL/min/1.73m2); Glucose 104 mg/dL (74-106); Magnesium 1.8 mg/dL (1.8-2.4); Sodium 136 mmol/L (136-145); Total Protein 7.1 g/dL (6.4-8.2)
[2022-11-21 16:56] LABS: Abs Immature Grans 0.02 10^3/uL (0.0-0.06); Absolute Basophil Count 0.02 10^3/uL (0.0-0.2); Absolute Eosinophil Count 0.06 10^3/uL (0.0-0.7); Absolute Lymphocyte Count 0.95 10^3/uL (1.2-3.4); Absolute Monocyte Count 0.28 10^3/uL (0.1-0.8); Absolute Neutrophil Count 3.23 10^3/uL (1.2-6.7); Basophils % 0.4; Eosinophils % 1.3; HCT 40.6 % (40.0-50.0); HGB 14.1 g/dL (13.5-17.5); Immature Grans % 0.4; Lymphocytes % 20.8; MCH 30.6 pg (27.0-33.0); MCHC 34.7 % (32.0-36.0); MCV 88 fL (80-95); MPV 9.8 fL (8.0-11.0); Monocytes % 6.1; Platelet Count 270 10^3/uL (130-400); RBC 4.61 10^6/uL (4.36-5.78); RDW 11.9 % (11.8-14.1); WBC 4.56 10^3/uL (4.4-10.8)
== END 2022-11-25 23:59 | disposition home or self-care (01) ==
LOC: INF 12:37
PROVIDERS: PCP Nurse Practitioner; Visit Provider Internal Medicine
DX: C67.9 Malignant neoplasm of bladder, unspecified (principal); Z45.2 Encounter for adjustment and management of vascular access device
CPT/HCPCS: 36591; 80053; 83735; 85025

== ENCOUNTER 2022-12-15 20:34 | Emergency (ER) | payer MEDICARE, SELFPAY ==
[2022-12-15 20:41] VITALS: BP 120/69; PULSE 93; RESP 16; TEMP 37.2; O2SAT 100
--- NOTE | 2022-12-15 20:49 | W.ED.GENAD ---
Discharge Plan Disposition Patient Disposition: Home Condition: Stable Discharge Details Clinical Impression: Fever, Acute UTI Primary Care Provider: Chastity Amor ED Provider: Mahendra Soriano Home Meds and New Rx's Prescriptions: New ciprofloxacin HCl 500 mg tablet 500 mg PO BID Qty: 14 0RF Continued prednisone 50 mg tablet 50 mg PO PRN Patient Comments: pt states not taking Rx Instructions: as directed by Dr Sorensen at [facility] Rad/Onc. polyethylene glycol 3350 [Miralax] 17 gram powder in packet 17 g PO DAILY Patient Comments: pt states not taking Excedrin Migraine 250-250-65 mg Tablet 1 tab PO DIRECTED Patient Comments: pt states not taking tramadol 50 mg tablet 50 mg PO BID PRN (Reason: pain) Qty: 6 0RF Patient Comments: pt states not taking Rx Instructions: Take 1 tablet by mouth up to every 12 hours if needed for severe pain. Be careful as this medication can become addictive. This medication is quite strong, and should be used with caution. ondansetron HCl 8 mg tablet 8 mg PO TID PRN Patient Comments: TAKE ONE TABLET BY MOUTH EVERY 8 HOURS NEEDED FOR NAUSEA Discharge Instructions Instructions: Urinary Tract Infection in Men (ED) Additional Instructions: Your blood work was reassuring against having a serious infection follow up with your primary care provider and oncologist if you feel more ill, have difficulty breathing or severe abdominal pain return to the emergency department Medical Decision Making 67 yo male with hx of bladder cancer undergoing radiation and chemo, last chemo was on Friday, comes in with cc of difficulty urinating today and tonight checked his temp and it was 100.2 so came here. He states he's been fatigued for a few weeks and not sleeping well. He denies cough, dyspnea, chest pain, vomiting, abdominal pain. HE is caox4 on arrival and afebrile here. He has a soft nontender abdomen. Given the complaint of difficulty urinating will proceed with ua to evaluate for uti and due to his temp being 100.2 will also obtain cbc, cmp, cultures and procalcitonin to evalaute for possible neutropenic fever and sepsis. HE has no cough or respiratory symptoms so do not feel chest imaging indicated at this time. labs show reassuring lactate and procal, no neutropenia, mild low K and continued mild elevation of his lft's similar to prior, no ruq tenderness so do not feel imaging indicated acutely. He feels well and requesting d/c which I feel is reasonable given reassuring work up. Will start on cipro for possible uti, advised to f/u with pcp and oncologist, return precautions given. PT did request a dose of something to help him sleep tonight, I did recommend otc medications such as melatonin and ill also provide a one time dose of valium. Differential Diagnosis Differential Diagnosis: sepsis, urinary retention, uti Lab Data Lab results reviewed: Yes I reviewed the patient's lab results. HPI General Mode of arrival: ambulatory. Date/Time Provider Initiated Documentation: 12/15/22 20:38. Limitations to Documentation: no limitations. Information obtained by: patient. History of Present Illness 67 year old M presents to the emergency department with the chief complaint of difficulty urinating, described as moderate, Patient started experiencing this day(s) (1) and it has been constant. No relieving factors improve symptom(s), No exacerbating factors reported . Patient notes fever/chills; denies chest pain, cough, diaphoresis and shortness of breath. Patient did receive the following treatments prior to arrival, none Related Data Home Medications Medication Instructions Recorded Confirmed ookbpcl-wacoktnlkoiko-mfowjqsd 250 1 tab PO DIRECTED 11/14/22 11/15/22 mg-250 mg-65 mg tablet (Excedrin Migraine) tramadol 50 mg tablet 50 mg PO BID PRN pain #6 tabs 11/15/22 prednisone 50 mg tablet 50 mg PO PRN 12/02/22 polyethylene glycol 3350 17 gram 17 g PO DAILY Constipation 12/06/22 oral powder packet (Miralax) ciprofloxacin HCl 500 mg tablet 500 mg PO BID #14 tabs 12/15/22 ondansetron HCl 8 mg tablet 8 mg PO TID PRN 12/15/22 12/15/22 Previous Rx's Medication Instructions Recorded tramadol 50 mg tablet 50 mg PO BID PRN pain #6 tabs 11/15/22 ciprofloxacin HCl 500 mg tablet 500 mg PO BID #14 tabs 12/15/22 Allergies Allergy/AdvReac Type Severity Reaction Status Date / Time Penicillins Allergy Unknown Verified 12/15/22 20:44 General Stated Complaint: Fever REYNA: 3 Review of Systems All systems reviewed & are unremarkable except as noted in HPI and below Constitutional Constitutional: Denies chills, Reports fever(s) and Denies weakness Cardiovascular Cardiovascular: Denies chest pain and Denies dyspnea Respiratory Respiratory: Denies cough and Denies dyspnea Gastrointestinal Gastrointestinal: Denies abdominal pain, Denies nausea and Denies vomiting Genitourinary Genitourinary: Denies dysuria Integumentary/Breasts Skin/Breast: Denies rash Neurologic Neurologic: Denies weakness PFSH All Active Problems (Updated 12/15/22 @ 22:08 by Mahendra Soriano MD) Fever (Acute) Acute UTI (Acute) Hypomagnesemia (Acute ~11/2022) [facility] Hem/Onc - being treated Corns and callosities (Acute) Bladder mass (Acute) Bladder cancer (Acute) 10/16/22 F/u with Radiology 10/23/22 [facility] Rad/Onc - pt will be proceeding with ChemoRT 11/26/22 F/U [facility] Hem/Onc 12/03/22 f/u [facility] hem/onc Surgical History (Updated 11/15/22 @ 13:51 by Tatyana Carranza) History of transurethral resection of bladder tumor (TURBT) Hx of cystoscopy Port-A-Cath in place (~10/2022) Family History Sister Breast cancer Social History Smoking/Tobacco Use Status: Former Tobacco Use Quit Date: 04/28/89 Tobacco: How many years used: 5 Second Hand Exposure: No Smoking risk assessment performed?: Yes Alcohol Intake: current Alcohol Intake frequency: a few times a month Alcohol type: wine Counseling given: No Drug use: Occasionally Substance use type: marijuana Adopted: No Caregiver/Support person: No Foster care: No Household members: significant other Housing: house Number of Children: 0 Communication Needs: None Education Level: college Details: associate's degree Do you need help understanding health information?: Rarely current occupation: musician Pets and animals: Yes Pets and animals: dog(s) Do you think of yourself as: straight/heterosexual Current gender identity: male What is your relationship status?: How often do you talk on the phone with friends or family?: twice per week How often do you get together with friends or relatives?: twice per week Do you belong to any clubs or organized social groups?: no Panel score (0-1 are the most socially isolated patients): 1 What type of physical activity do you participate in: walking Duration: 15-30 minutes/day Frequency: 3-4 times per week Jessica/Sabianism: None Special jessica needs: No Seatbelt use: always Drive intox or ride w/intox pile driver operator: No Working smoke detector in home: Yes Carbon monox detector in home: Yes Do you feel safe at home: Yes Do you feel safe in your relationship?: Yes Exam Const General: no acute distress Orientation: alert HENMT Head: normal to inspection Ears: external ears normal General nose exam: external nose normal Mouth: moist mucous membranes Eyes General: appearance normal, both eyes and all related structures Neck Neck: normal visual inspection Resp Effort & Inspection: normal respiratory effort and able to speak in complete sentences Cardio Rate: regular rate GI Palpation: soft and nontender Skin General skin exam: no rashes or lesions noted Neuro General: patient alert and patient oriented x3 Extrem General: normal to inspection Psych Mental Status: mental status grossly normal Course Vital Signs Vital signs: Vital Signs Temperature 37.2 C 12/15/22 20:41 Pulse 93 H 12/15/22 20:41 Respiratory Rate 16 12/15/22 20:41 Blood Pressure 120/69 12/15/22 20:41 Pulse Oximetry 100 12/15/22 20:41 Temperature 37.2 C 12/15/22 20:41 Temperature Source Tympanic 12/15/22 20:41 Pulse 93 H 12/15/22 20:41 Respiratory Rate 16 12/15/22 20:41 Blood Pressure 120/69 12/15/22 20:41 Blood Pressure Position Sitting 12/15/22 20:41 Pulse Oximetry 100 12/15/22 20:41 Oxygen Delivery Method Room Air 12/15/22 20:41 Oxygen Flow Rate 0 12/15/22 20:41 Pain Level 5 12/15/22 20:41 Comment bladder 12/15/22 20:41 Lab/Test Results Lab/Test Results: 12/15/22 20:45 Blood Blood Culture - Pending 12/15/22 20:45 Blood Blood Culture - Pending
[2022-12-15 20:54] LABS: Source Nasal/Nares
[2022-12-15 21:06] LABS: Abs Immature Grans 0.05 10^3/uL (0.0-0.06); Absolute Basophil Count 0.01 10^3/uL (0.0-0.2); Absolute Eosinophil Count 0.04 10^3/uL (0.0-0.7); Absolute Lymphocyte Count 0.23 10^3/uL (1.2-3.4); Absolute Monocyte Count 0.29 10^3/uL (0.1-0.8); Absolute Neutrophil Count 6.61 10^3/uL (1.2-6.7); Basophils % 0.1; Eosinophils % 0.6; HCT 31.6 % (40.0-50.0); HGB 11.4 g/dL (13.5-17.5); Immature Grans % 0.7; Lymphocytes % 3.2; MCH 31.3 pg (27.0-33.0); MCHC 36.1 % (32.0-36.0); MCV 87 fL (80-95); MPV 8.6 fL (8.0-11.0); Neutrophils % 91.4; Platelet Count 357 10^3/uL (130-400); RBC 3.64 10^6/uL (4.36-5.78); RDW 12.6 % (11.8-14.1); RDW-SD 36.7 fL; WBC 7.23 10^3/uL (4.4-10.8)
[2022-12-15] MEDS: Normal Saline 1,000 ML 1000 ML IV (21:09)
[2022-12-15 21:36] LABS: ALT 102 U/L (16-63); AST 58 U/L (15-37); Albumin 2.6 g/dL (3.4-5.0); Alkaline Phosphatase 85 U/L (46-116); Anion Gap 9.1 mmol/L (3-11); BUN 12 mg/dL (7-18); Bilirubin, Total 0.7 mg/dL (0.2-1.0); CO2 27.9 mmol/L (21.0-32.0); CREATININE 0.8 mg/dL (0.70-1.30); Calcium 8.7 mg/dL (8.5-10.1); Chloride 98 mmol/L (98-107); Glucose 112 mg/dL (74-106); Magnesium 1.6 mg/dL (1.8-2.4); Potassium 3.3 mmol/L (3.5-5.1); Sodium 135 mmol/L (136-145); TSH (W/Ref FT4) 0.01 uIU/mL (0.36-3.74)
[2022-12-15 21:41] LABS: Procalcitonin 0.3 ng/mL
[2022-12-15 21:51] LABS: Bilirubin Small (Negative); Blood Negative (Negative); Clarity Clear (Clear); Glucose Negative (Negative); Ketones 15 mg/dL (Negative); Leukocyte Esterase Trace (Negative); Nitrite Negative (Negative); pH 5.5 (5-8)
[2022-12-15 21:53] LABS: COVID-19 PCR Negative (Negative)
[2022-12-15 21:57] LABS: Epithelial Cells Few HPF (Negative); RBC 0-2 HPF (0-2)
[2022-12-15 21:58] LABS: Bacteria Few HPF (Negative); C & S Indicated? Yes; Casts Negative LPF (Negative); Crystals Negative HPF (Negative); Mucus Trace (Negative)
[2022-12-15 22:00] LABS: FREE T4 1.75 ng/dL (0.76-1.46)
[2022-12-15] MEDS: Ciprofloxacin 500 MG TAB PO (22:15)
[2022-12-15] MEDS: diazePAM 5 MG TAB PO (22:16)
[2022-12-15 22:23] VITALS: BP 118/66; PULSE 85; RESP 16; O2SAT 99
--- NOTE | 2022-12-18 09:55 | NUR.NOTE ---
Nursing Note: in chart for antibiotics
== END 2022-12-15 22:25 | disposition home or self-care (01) ==
PROVIDERS: Emergency Provider Emergency Medicine; PCP Nurse Practitioner
DX: N39.0 Urinary tract infection, site not specified (principal); E87.6 Hypokalemia; R50.9 Fever, unspecified; C67.9 Malignant neoplasm of bladder, unspecified; Z92.21 Personal history of antineoplastic chemotherapy; Z92.3 Personal history of irradiation; Z87.891 Personal history of nicotine dependence
CPT/HCPCS: 36415; 80053; 84145; 87040; 87635; 96360; 99283; 81003; 81015; 83605; 83735; 84439; 84443; 85025; 87086

== ENCOUNTER → 2022-12-17 09:43 | Outpatient (BNVA) | payer MEDICARE, SELFPAY | PROVIDERS: PCP Nurse Practitioner; Referring Provider Nurse Practitioner; Visit Provider Surgery | DX: C67.9 Malignant neoplasm of bladder, unspecified (principal); Z95.9 Presence of cardiac and vascular implant and graft, unspecified | CPT/HCPCS: 99212 ==

== ENCOUNTER 2022-12-19 11:57 | Outpatient (CLI) | payer MEDICARE, SELFPAY ==
[2022-12-19 12:33] LABS: TSH (W/Ref FT4) 0.01 uIU/mL (0.36-3.74)
[2022-12-19 12:53] LABS: FREE T4 1.42 ng/dL (0.76-1.46)
== END 2022-12-19 11:58 | disposition home or self-care (01) ==
LOC: LBO 11:57
PROVIDERS: PCP Nurse Practitioner; Visit Provider Nurse Practitioner
DX: I10 Essential (primary) hypertension (principal); R94.6 Abnormal results of thyroid function studies
CPT/HCPCS: 36415; 84439; 84443

== ENCOUNTER 2022-12-24 02:30 | Outpatient (RCR) | payer MEDICARE, SELFPAY ==
[2022-11-26] MEDS: Normal Saline Flush 10 ML SYR IVP (12:46)
[2022-11-26 12:48] LABS: Abs Immature Grans 0.02 10^3/uL (0.0-0.06); Absolute Basophil Count 0.01 10^3/uL (0.0-0.2); Absolute Eosinophil Count 0.07 10^3/uL (0.0-0.7); Absolute Lymphocyte Count 0.68 10^3/uL (1.2-3.4); Absolute Neutrophil Count 2.89 10^3/uL (1.2-6.7); Basophils % 0.3; Eosinophils % 1.8; HCT 38.4 % (40.0-50.0); HGB 13.5 g/dL (13.5-17.5); Immature Grans % 0.5; Lymphocytes % 17.6; MCH 31.3 pg (27.0-33.0); MCHC 35.2 % (32.0-36.0); MCV 89 fL (80-95); MPV 9.7 fL (8.0-11.0); Monocytes % 5.2; Neutrophils % 74.6; Platelet Count 212 10^3/uL (130-400); RBC 4.32 10^6/uL (4.36-5.78); RDW 11.6 % (11.8-14.1); RDW-SD 37.5 fL; WBC 3.87 10^3/uL (4.4-10.8)
[2022-11-26 13:04] LABS: ALT 22 U/L (16-63); AST 15 U/L (15-37); Albumin 3.5 g/dL (3.4-5.0); Alkaline Phosphatase 89 U/L (46-116); Anion Gap 7.6 mmol/L (3-11); BUN 16 mg/dL (7-18); Bilirubin, Total 0.6 mg/dL (0.2-1.0); CO2 27.4 mmol/L (21.0-32.0); CREATININE 0.9 mg/dL (0.70-1.30); Calcium 8.9 mg/dL (8.5-10.1); Chloride 100 mmol/L (98-107); Estimated GFR 92.45 (mL/min/1.73m2); Glucose 158 mg/dL (74-106); Magnesium 1.7 mg/dL (1.8-2.4); Potassium 3.7 mmol/L (3.5-5.1); Sodium 135 mmol/L (136-145); Total Protein 6.8 g/dL (6.4-8.2)
[2022-11-29] MEDS: Normal Saline Flush 10 ML SYR IVP (09:35)
[2022-11-29 09:50] LABS: Abs Immature Grans 0.01 10^3/uL (0.0-0.06); Absolute Basophil Count 0.01 10^3/uL (0.0-0.2); Absolute Eosinophil Count 0.16 10^3/uL (0.0-0.7); Absolute Lymphocyte Count 0.48 10^3/uL (1.2-3.4); Absolute Monocyte Count 0.14 10^3/uL (0.1-0.8); Absolute Neutrophil Count 2.32 10^3/uL (1.2-6.7); Basophils % 0.3; Eosinophils % 5.1; HCT 35.5 % (40.0-50.0); HGB 12.5 g/dL (13.5-17.5); Immature Grans % 0.3; Lymphocytes % 15.4; MCH 31.3 pg (27.0-33.0); MCHC 35.2 % (32.0-36.0); MCV 89 fL (80-95); MPV 9.8 fL (8.0-11.0); Monocytes % 4.5; Neutrophils % 74.4; Platelet Count 155 10^3/uL (130-400); RDW 11.6 % (11.8-14.1); WBC 3.12 10^3/uL (4.4-10.8)
[2022-11-29 09:58] LABS: ALT 42 U/L (16-63); AST 29 U/L (15-37); Albumin 3.3 g/dL (3.4-5.0); Alkaline Phosphatase 89 U/L (46-116); Anion Gap 5.6 mmol/L (3-11); BUN 12 mg/dL (7-18); Bilirubin, Total 0.7 mg/dL (0.2-1.0); CO2 28.4 mmol/L (21.0-32.0); CREATININE 0.9 mg/dL (0.70-1.30); Calcium 8.7 mg/dL (8.5-10.1); Chloride 104 mmol/L (98-107); Estimated GFR 92.45 (mL/min/1.73m2); Glucose 103 mg/dL (74-106); Magnesium 1.9 mg/dL (1.8-2.4); Potassium 4.2 mmol/L (3.5-5.1); Sodium 138 mmol/L (136-145); Total Protein 6.4 g/dL (6.4-8.2)
[2022-12-03] MEDS: Normal Saline Flush 10 ML SYR IVP (09:56)
[2022-12-03 10:12] LABS: Abs Immature Grans 0.02 10^3/uL (0.0-0.06); Absolute Basophil Count 0.01 10^3/uL (0.0-0.2); Absolute Eosinophil Count 0.12 10^3/uL (0.0-0.7); Absolute Monocyte Count 0.18 10^3/uL (0.1-0.8); Absolute Neutrophil Count 2.27 10^3/uL (1.2-6.7); Basophils % 0.3; HCT 36.1 % (40.0-50.0); Immature Grans % 0.7; Lymphocytes % 13.3; MCH 31.3 pg (27.0-33.0); MCV 87 fL (80-95); MPV 9.3 fL (8.0-11.0); Neutrophils % 75.7; Platelet Count 164 10^3/uL (130-400); RBC 4.16 10^6/uL (4.36-5.78); RDW 11.4 % (11.8-14.1); RDW-SD 35.8 fL
[2022-12-03 10:27] LABS: ALT 42 U/L (16-63); AST 23 U/L (15-37); Albumin 3.4 g/dL (3.4-5.0); Alkaline Phosphatase 87 U/L (46-116); Anion Gap 8.6 mmol/L (3-11); BUN 14 mg/dL (7-18); Bilirubin, Total 0.7 mg/dL (0.2-1.0); CO2 26.4 mmol/L (21.0-32.0); Calcium 9.4 mg/dL (8.5-10.1); Chloride 99 mmol/L (98-107); Estimated GFR 81.47 (mL/min/1.73m2); Glucose 136 mg/dL (74-106); Magnesium 1.7 mg/dL (1.8-2.4); Potassium 4.2 mmol/L (3.5-5.1); Sodium 134 mmol/L (136-145); Total Protein 7.1 g/dL (6.4-8.2)
[2022-12-06] MEDS: Normal Saline Flush 10 ML SYR IVP (08:23)
[2022-12-06 08:48] LABS: Abs Immature Grans 0.01 10^3/uL (0.0-0.06); Absolute Basophil Count 0.01 10^3/uL (0.0-0.2); Absolute Eosinophil Count 0.06 10^3/uL (0.0-0.7); Absolute Lymphocyte Count 0.21 10^3/uL (1.2-3.4); Absolute Monocyte Count 0.14 10^3/uL (0.1-0.8); Absolute Neutrophil Count 2.77 10^3/uL (1.2-6.7); Basophils % 0.3; Eosinophils % 1.9; HCT 33.9 % (40.0-50.0); HGB 12.3 g/dL (13.5-17.5); Immature Grans % 0.3; Lymphocytes % 6.6; MCH 31.5 pg (27.0-33.0); MCHC 36.3 % (32.0-36.0); MCV 87 fL (80-95); MPV 9.4 fL (8.0-11.0); Monocytes % 4.4; Neutrophils % 86.5; Platelet Count 152 10^3/uL (130-400); RBC 3.91 10^6/uL (4.36-5.78); RDW 11.7 % (11.8-14.1); RDW-SD 35.5 fL
[2022-12-06 09:02] LABS: ALT 44 U/L (16-63); AST 31 U/L (15-37); Albumin 3.2 g/dL (3.4-5.0); Alkaline Phosphatase 82 U/L (46-116); Anion Gap 8.4 mmol/L (3-11); BUN 11 mg/dL (7-18); Bilirubin, Total 0.6 mg/dL (0.2-1.0); CO2 27.6 mmol/L (21.0-32.0); Calcium 8.9 mg/dL (8.5-10.1); Chloride 101 mmol/L (98-107); Estimated GFR 81.47 (mL/min/1.73m2); Glucose 114 mg/dL (74-106); Magnesium 1.8 mg/dL (1.8-2.4); Potassium 4.1 mmol/L (3.5-5.1); Sodium 137 mmol/L (136-145); Total Protein 6.7 g/dL (6.4-8.2)
[2022-12-10 12:54] LABS: Abs Immature Grans 0.05 10^3/uL (0.0-0.06); HCT 33.9 % (40.0-50.0); HGB 12.4 g/dL (13.5-17.5); MCHC 36.6 % (32.0-36.0); MCV 85 fL (80-95); MPV 8.5 fL (8.0-11.0); RDW 11.7 % (11.8-14.1); RDW-SD 34.7 fL; WBC 4.43 10^3/uL (4.4-10.8)
[2022-12-10] MEDS: Normal Saline Flush 10 ML SYR IVP (13:01)
[2022-12-10 13:11] LABS: ALT 63 U/L (16-63); AST 40 U/L (15-37); Alkaline Phosphatase 77 U/L (46-116); Anion Gap 10.2 mmol/L (3-11); BUN 11 mg/dL (7-18); Bilirubin, Total 0.7 mg/dL (0.2-1.0); CO2 25.8 mmol/L (21.0-32.0); CREATININE 0.8 mg/dL (0.70-1.30); Calcium 8.8 mg/dL (8.5-10.1); Chloride 99 mmol/L (98-107); Glucose 107 mg/dL (74-106); Magnesium 1.6 mg/dL (1.8-2.4); Potassium 3.7 mmol/L (3.5-5.1); Sodium 135 mmol/L (136-145); Total Protein 6.6 g/dL (6.4-8.2)
[2022-12-10 13:27] LABS: Platelet Count 219 10^3/uL (130-400)
[2022-12-10 13:28] LABS: Absolute Basophil Count 0.04 10^3/uL (0.0-0.2); Absolute Eosinophil Count 0.09 10^3/uL (0.0-0.7); Absolute Lymphocyte Count 0.27 10^3/uL (1.2-3.4); Absolute Monocyte Count 0.35 10^3/uL (0.1-0.8); Absolute Neutrophil Count 3.59 10^3/uL (1.2-6.7); Bands % 7; Diff Comment Manual Differential; Metamyelocytes % 1; Myelocytes % 1; RBC Morphology Normal
[2022-12-13 08:45] LABS: Abs Immature Grans 0.06 10^3/uL (0.0-0.06); Absolute Basophil Count 0.02 10^3/uL (0.0-0.2); Absolute Eosinophil Count 0.01 10^3/uL (0.0-0.7); Absolute Lymphocyte Count 0.17 10^3/uL (1.2-3.4); Absolute Monocyte Count 0.31 10^3/uL (0.1-0.8); Absolute Neutrophil Count 5.95 10^3/uL (1.2-6.7); Basophils % 0.3; Eosinophils % 0.2; HCT 33.5 % (40.0-50.0); HGB 12.3 g/dL (13.5-17.5); Immature Grans % 0.9; Lymphocytes % 2.6; MCH 31.8 pg (27.0-33.0); MCHC 36.7 % (32.0-36.0); MCV 87 fL (80-95); MPV 8.9 fL (8.0-11.0); Monocytes % 4.8; Neutrophils % 91.2; Platelet Count 318 10^3/uL (130-400); RBC 3.87 10^6/uL (4.36-5.78); RDW 12.4 % (11.8-14.1); RDW-SD 35.8 fL; WBC 6.52 10^3/uL (4.4-10.8)
[2022-12-13 09:08] LABS: ALT 67 U/L (16-63); AST 38 U/L (15-37); Albumin 2.8 g/dL (3.4-5.0); Alkaline Phosphatase 83 U/L (46-116); Anion Gap 7.6 mmol/L (3-11); BUN 11 mg/dL (7-18); Bilirubin, Total 0.7 mg/dL (0.2-1.0); CO2 29.4 mmol/L (21.0-32.0); Calcium 9.1 mg/dL (8.5-10.1); Chloride 102 mmol/L (98-107); Estimated GFR 81.47 (mL/min/1.73m2); Glucose 127 mg/dL (74-106); Magnesium 1.8 mg/dL (1.8-2.4); Potassium 3.2 mmol/L (3.5-5.1); Sodium 139 mmol/L (136-145); Total Protein 6.4 g/dL (6.4-8.2)
[2022-12-17] MEDS: Normal Saline Flush 10 ML SYR IVP (12:10)
[2022-12-17 12:28] LABS: Abs Immature Grans 0.22 10^3/uL (0.0-0.06); Absolute Basophil Count 0.04 10^3/uL (0.0-0.2); Absolute Eosinophil Count 0.04 10^3/uL (0.0-0.7); Absolute Monocyte Count 0.49 10^3/uL (0.1-0.8); Absolute Neutrophil Count 4.47 10^3/uL (1.2-6.7); Basophils % 0.7; Eosinophils % 0.7; HCT 28.4 % (40.0-50.0); HGB 10.5 g/dL (13.5-17.5); Lymphocytes % 3.7; MCH 31.9 pg (27.0-33.0); MCV 86 fL (80-95); MPV 8.4 fL (8.0-11.0); Neutrophils % 81.9; Nucleated RBC 0.4 % (0.0-0.3); Platelet Count 348 10^3/uL (130-400); RBC 3.29 10^6/uL (4.36-5.78); RDW 12.6 % (11.8-14.1); RDW-SD 36.6 fL; WBC 5.46 10^3/uL (4.4-10.8)
[2022-12-17 12:45] LABS: ALT 140 U/L (16-63); AST 104 U/L (15-37); Albumin 2.3 g/dL (3.4-5.0); Alkaline Phosphatase 88 U/L (46-116); BUN 10 mg/dL (7-18); Bilirubin, Total 0.4 mg/dL (0.2-1.0); CREATININE 0.8 mg/dL (0.70-1.30); Calcium 8.3 mg/dL (8.5-10.1); Chloride 101 mmol/L (98-107); Glucose 126 mg/dL (74-106); Magnesium 1.7 mg/dL (1.8-2.4); Potassium 3.3 mmol/L (3.5-5.1); Sodium 136 mmol/L (136-145); Total Protein 5.6 g/dL (6.4-8.2)
[2022-12-20] MEDS: Normal Saline Flush 10 ML SYR IVP (08:25)
[2022-12-20 08:44] LABS: Absolute Basophil Count 0.04 10^3/uL (0.0-0.2); Absolute Eosinophil Count 0.01 10^3/uL (0.0-0.7); Absolute Lymphocyte Count 0.25 10^3/uL (1.2-3.4); Absolute Monocyte Count 0.71 10^3/uL (0.1-0.8); Absolute Neutrophil Count 3.21 10^3/uL (1.2-6.7); Basophils % 0.9; Eosinophils % 0.2; HCT 32.3 % (40.0-50.0); HGB 11.4 g/dL (13.5-17.5); Immature Grans % 4.5; Lymphocytes % 5.7; MCH 31.3 pg (27.0-33.0); MCHC 35.3 % (32.0-36.0); MCV 89 fL (80-95); MPV 8.6 fL (8.0-11.0); Monocytes % 16.1; Neutrophils % 72.6; Platelet Count 360 10^3/uL (130-400); RBC 3.64 10^6/uL (4.36-5.78); RDW 13.6 % (11.8-14.1); RDW-SD 37.9 fL; WBC 4.42 10^3/uL (4.4-10.8)
[2022-12-20 09:03] LABS: ALT 90 U/L (16-63); AST 56 U/L (15-37); Albumin 2.4 g/dL (3.4-5.0); Alkaline Phosphatase 89 U/L (46-116); Anion Gap 8.3 mmol/L (3-11); BUN 13 mg/dL (7-18); Bilirubin, Total 0.5 mg/dL (0.2-1.0); CO2 27.7 mmol/L (21.0-32.0); CREATININE 0.9 mg/dL (0.70-1.30); Calcium 8.1 mg/dL (8.5-10.1); Chloride 102 mmol/L (98-107); Estimated GFR 92.45 (mL/min/1.73m2); Glucose 117 mg/dL (74-106); Magnesium 1.7 mg/dL (1.8-2.4); Potassium 3.6 mmol/L (3.5-5.1); Sodium 138 mmol/L (136-145); Total Protein 5.7 g/dL (6.4-8.2)
[2022-12-24 10:21] LABS: Abs Immature Grans 0.08 10^3/uL (0.0-0.06); Absolute Basophil Count 0.02 10^3/uL (0.0-0.2); Absolute Eosinophil Count 0.02 10^3/uL (0.0-0.7); Absolute Lymphocyte Count 0.26 10^3/uL (1.2-3.4); Absolute Monocyte Count 0.44 10^3/uL (0.1-0.8); Absolute Neutrophil Count 6.97 10^3/uL (1.2-6.7); Basophils % 0.3; Eosinophils % 0.3; Lymphocytes % 3.3; MCH 32.2 pg (27.0-33.0); MCHC 35.5 % (32.0-36.0); MCV 91 fL (80-95); MPV 8.9 fL (8.0-11.0); Monocytes % 5.6; Neutrophils % 89.5; Platelet Count 447 10^3/uL (130-400); RBC 3.42 10^6/uL (4.36-5.78); RDW 14.5 % (11.8-14.1); RDW-SD 40.7 fL; WBC 7.79 10^3/uL (4.4-10.8)
[2022-12-24] MEDS: Normal Saline Flush 10 ML SYR IVP (10:37)
[2022-12-24 10:39] LABS: ALT 68 U/L (16-63); AST 42 U/L (15-37); Albumin 2.4 g/dL (3.4-5.0); Alkaline Phosphatase 87 U/L (46-116); Anion Gap 4.7 mmol/L (3-11); BUN 13 mg/dL (7-18); Bilirubin, Total 0.4 mg/dL (0.2-1.0); CO2 29.3 mmol/L (21.0-32.0); CREATININE 0.8 mg/dL (0.70-1.30); Calcium 8.2 mg/dL (8.5-10.1); Chloride 103 mmol/L (98-107); Glucose 111 mg/dL (74-106); Magnesium 1.8 mg/dL (1.8-2.4); Potassium 4.1 mmol/L (3.5-5.1); Sodium 137 mmol/L (136-145); Total Protein 5.6 g/dL (6.4-8.2)
== END 2022-12-26 23:59 | disposition home or self-care (01) ==
LOC: INF 02:30
PROVIDERS: PCP Nurse Practitioner; Visit Provider Internal Medicine
DX: C67.9 Malignant neoplasm of bladder, unspecified (principal); Z45.2 Encounter for adjustment and management of vascular access device
CPT/HCPCS: 36415; 36591; 80053; 99212; 83735; 85025

== ENCOUNTER 2023-01-03 01:26 | Outpatient (RCR) | payer MEDICARE, SELFPAY ==
[2022-12-27] MEDS: Normal Saline Flush 10 ML SYR IVP (08:28)
[2022-12-27 08:32] LABS: Abs Immature Grans 0.04 10^3/uL (0.0-0.06); Absolute Basophil Count 0.02 10^3/uL (0.0-0.2); Absolute Eosinophil Count 0.01 10^3/uL (0.0-0.7); Absolute Lymphocyte Count 0.19 10^3/uL (1.2-3.4); Absolute Monocyte Count 0.39 10^3/uL (0.1-0.8); Basophils % 0.2; Eosinophils % 0.1; HCT 32.9 % (40.0-50.0); HGB 11.7 g/dL (13.5-17.5); Immature Grans % 0.4; MCH 32.1 pg (27.0-33.0); MCHC 35.6 % (32.0-36.0); MCV 90 fL (80-95); MPV 8.7 fL (8.0-11.0); Monocytes % 4.1; Neutrophils % 93.2; Platelet Count 474 10^3/uL (130-400); RBC 3.64 10^6/uL (4.36-5.78); RDW 15.3 % (11.8-14.1); RDW-SD 40.5 fL; WBC 9.45 10^3/uL (4.4-10.8)
[2022-12-27 08:49] LABS: ALT 59 U/L (16-63); AST 34 U/L (15-37); Albumin 2.7 g/dL (3.4-5.0); Alkaline Phosphatase 105 U/L (46-116); Anion Gap 7.1 mmol/L (3-11); BUN 18 mg/dL (7-18); Bilirubin, Total 0.8 mg/dL (0.2-1.0); CO2 27.9 mmol/L (21.0-32.0); CREATININE 1.1 mg/dL (0.70-1.30); Calcium 8.8 mg/dL (8.5-10.1); Chloride 101 mmol/L (98-107); Estimated GFR 72.67 (mL/min/1.73m2); Glucose 142 mg/dL (74-106); Potassium 4.1 mmol/L (3.5-5.1); Sodium 136 mmol/L (136-145); Total Protein 6.3 g/dL (6.4-8.2)
[2022-12-31] MEDS: Normal Saline Flush 10 ML SYR IVP (10:26)
[2022-12-31 10:45] LABS: Abs Immature Grans 0.05 10^3/uL (0.0-0.06); Absolute Basophil Count 0.02 10^3/uL (0.0-0.2); Absolute Eosinophil Count 0.01 10^3/uL (0.0-0.7); Absolute Lymphocyte Count 0.21 10^3/uL (1.2-3.4); Absolute Monocyte Count 0.46 10^3/uL (0.1-0.8); Absolute Neutrophil Count 5.67 10^3/uL (1.2-6.7); Basophils % 0.3; Eosinophils % 0.2; HCT 29.8 % (40.0-50.0); HGB 10.5 g/dL (13.5-17.5); Immature Grans % 0.8; Lymphocytes % 3.3; MCH 32.5 pg (27.0-33.0); MCHC 35.2 % (32.0-36.0); MCV 92 fL (80-95); MPV 8.8 fL (8.0-11.0); Monocytes % 7.2; Neutrophils % 88.2; Platelet Count 377 10^3/uL (130-400); RBC 3.23 10^6/uL (4.36-5.78); RDW 15.5 % (11.8-14.1); RDW-SD 41.1 fL; WBC 6.42 10^3/uL (4.4-10.8)
[2022-12-31 11:02] LABS: ALT 49 U/L (16-63); AST 30 U/L (15-37); Albumin 2.5 g/dL (3.4-5.0); Alkaline Phosphatase 101 U/L (46-116); Anion Gap 6.6 mmol/L (3-11); BUN 21 mg/dL (7-18); Bilirubin, Total 0.5 mg/dL (0.2-1.0); CO2 28.4 mmol/L (21.0-32.0); Calcium 8.4 mg/dL (8.5-10.1); Chloride 97 mmol/L (98-107); Estimated GFR 81.47 (mL/min/1.73m2); Glucose 132 mg/dL (74-106); Magnesium 1.9 mg/dL (1.8-2.4); Potassium 4.2 mmol/L (3.5-5.1); Sodium 132 mmol/L (136-145); Total Protein 5.9 g/dL (6.4-8.2)
[2023-01-03] MEDS: Normal Saline Flush 10 ML SYR IVP (09:00)
[2023-01-03 09:03] LABS: Abs Immature Grans 0.02 10^3/uL (0.0-0.06); Absolute Basophil Count 0.01 10^3/uL (0.0-0.2); Absolute Eosinophil Count 0.02 10^3/uL (0.0-0.7); Absolute Lymphocyte Count 0.16 10^3/uL (1.2-3.4); Absolute Monocyte Count 0.26 10^3/uL (0.1-0.8); Absolute Neutrophil Count 4.88 10^3/uL (1.2-6.7); Basophils % 0.2; Eosinophils % 0.4; HCT 29.6 % (40.0-50.0); HGB 10.2 g/dL (13.5-17.5); Immature Grans % 0.4; MCHC 34.5 % (32.0-36.0); MCV 93 fL (80-95); MPV 8.9 fL (8.0-11.0); Monocytes % 4.9; Neutrophils % 91.1; Platelet Count 274 10^3/uL (130-400); RBC 3.19 10^6/uL (4.36-5.78); RDW 16.6 % (11.8-14.1); RDW-SD 42.6 fL; WBC 5.35 10^3/uL (4.4-10.8)
[2023-01-03 09:18] LABS: ALT 50 U/L (16-63); AST 33 U/L (15-37); Albumin 2.6 g/dL (3.4-5.0); Alkaline Phosphatase 102 U/L (46-116); Anion Gap 6.8 mmol/L (3-11); BUN 16 mg/dL (7-18); Bilirubin, Total 0.7 mg/dL (0.2-1.0); CO2 28.2 mmol/L (21.0-32.0); CREATININE 0.9 mg/dL (0.70-1.30); Calcium 8.6 mg/dL (8.5-10.1); Chloride 101 mmol/L (98-107); Estimated GFR 92.45 (mL/min/1.73m2); Glucose 129 mg/dL (74-106); Magnesium 1.7 mg/dL (1.8-2.4); Potassium 3.9 mmol/L (3.5-5.1); Sodium 136 mmol/L (136-145)
== END 2023-01-25 23:59 | disposition home or self-care (01) ==
LOC: INF 01:26
PROVIDERS: PCP Nurse Practitioner; Visit Provider Internal Medicine
DX: C67.9 Malignant neoplasm of bladder, unspecified (principal); Z45.2 Encounter for adjustment and management of vascular access device
CPT/HCPCS: 36591; 80053; 83735; 85025

== ENCOUNTER → 2023-01-13 14:05 | Outpatient (BNVA) | payer MEDICARE, SELFPAY | PROVIDERS: PCP Nurse Practitioner; Referring Provider Nurse Practitioner; Visit Provider Surgery | DX: Z98.890 Other specified postprocedural states (principal) | CPT/HCPCS: 36590; 99212 ==

== ENCOUNTER → 2023-01-20 01:15 | Outpatient (CLI) | payer MEDICARE, SELFPAY ==
--- NOTE | 2023-01-20 08:15 | DI.US_ITS ---
Exam(s) US THYROID EXAM: US THYROIDi CLINICAL HISTORY: evaluate for low TSH,R79.89. TECHNIQUE: Ultrasound thyroid performed using standard protocol. COMPARISON: No exams were available for comparison FINDINGS: Both thyroid lobes are slightly prominent in size and exhibit heterogeneous echotexture. There few s mall colloid cysts in the left lobe measuring up to 0.5 cm. No significant solid nodules in the left lobe. The main findings are in the right lobe, as follows... RIGHT THYROID LOBE: Measures 3.4 cm AP x 3.6 cm wide x 6.2 cm craniocaudal Right lobe contains 2 nodules with the lower of the 2 being larger. TI-RADS GRADING OF RIGHT LOBE NODULES: Nodule #1. This is the more superior of the 2 nodules in the right lobe . Size: This nodule measures 2.1 x 0.9 x 1.8 cm Composition: Mixed [id number]-[id number]-8 point Echogenicity: Slightly hypoechoic compared to surrounding parenchyma-2 points Shape: Wider than taller in the transverse pain-0 points Margin: Smooth- 0 points Echogenic Foci: None-0 points Total Points for this nodule: 3 ACR Ti-Rads Category: TR3 This TR3 nodule can be followed conservatively as it measures less than 2.5 cm Nodule #2. This is the more inferior-larger nodule in the right lobe Size: This nodule measures 4.5 x 2.8 x 2.8 cm Composition: Mixed cystic-solid- 1 point Echogenicity: The solid components of the nodule are slightly hypoechoic when compared to surrounding gland-2 point Shape: Wider than taller- 0 points Margin: Uai-otqvrdz-5 points Echogenic Foci: None-0 points Total points for this nodule: 3 ACR Ti-Rads Category: TR3 This TR3 nodule should undergo ultrasound-guided FNA as it measures greater than 2.5 cm LYMPH NODES: There is no significant adenopathy. IMPRESSION: 1. There are 2 solid nodules in the right lobe. The larger of these 2 nodules (which is located in t he inferior half of the right lobe) is a TR3 level nodule and should undergo ultrasound-guided FNA as it measures greater than 2.5 cm. 2. The similar appearing but smaller TR3 nodule higher up in the right lobe can be followed conserva tively in contingent upon findings of the FNA of the lower larger nodule. 3. There is no significant lymphadenopathy demonstrated. DATA REPOSITORY:
== END ==
PROVIDERS: PCP Nurse Practitioner; Visit Provider Nurse Practitioner
DX: R79.89 Other specified abnormal findings of blood chemistry (principal); E04.8 Other specified nontoxic goiter
CPT/HCPCS: 76536

== ENCOUNTER 2023-02-04 09:40 | Outpatient (REF) | payer MEDICARE, SELFPAY | END 2023-02-04 09:41 | disposition home or self-care (01) | LOC: LBN 09:40 | PROVIDERS: PCP Nurse Practitioner; Visit Provider Surgery | DX: N39.0 Urinary tract infection, site not specified (principal) | CPT/HCPCS: 87086 ==

== ENCOUNTER 2023-02-11 12:51 | Outpatient (REF) | payer MEDICARE, SELFPAY ==
[2023-02-11 16:03] LABS: Abs Immature Grans 0.03 10^3/uL (0.0-0.06); Absolute Basophil Count 0.03 10^3/uL (0.0-0.2); Absolute Eosinophil Count 0.05 10^3/uL (0.0-0.7); Absolute Lymphocyte Count 0.58 10^3/uL (1.2-3.4); Absolute Monocyte Count 0.51 10^3/uL (0.1-0.8); Absolute Neutrophil Count 5.61 10^3/uL (1.2-6.7); Basophils % 0.4; Eosinophils % 0.7; HCT 37.8 % (40.0-50.0); HGB 12.6 g/dL (13.5-17.5); Immature Grans % 0.4; Lymphocytes % 8.5; MCH 33.6 pg (27.0-33.0); MCHC 33.3 % (32.0-36.0); MCV 101 fL (80-95); Monocytes % 7.5; Neutrophils % 82.5; Platelet Count 419 10^3/uL (130-400); RBC 3.75 10^6/uL (4.36-5.78); RDW 14.9 % (11.8-14.1); RDW-SD 54.7 fL; WBC 6.81 10^3/uL (4.4-10.8)
[2023-02-11 16:39] LABS: ALT 15 U/L (16-63); AST 19 U/L (15-37); Albumin 3.1 g/dL (3.4-5.0); Alkaline Phosphatase 91 U/L (46-116); Anion Gap 8.6 mmol/L (3-11); BUN 19 mg/dL (7-18); Bilirubin, Total 0.5 mg/dL (0.2-1.0); C-Reactive Protein 5.23 mg/dL (0.0-0.3); CO2 26.4 mmol/L (21.0-32.0); CREATININE 0.9 mg/dL (0.70-1.30); Calcium 9.3 mg/dL (8.5-10.1); Chloride 100 mmol/L (98-107); Estimated GFR 92.45 (mL/min/1.73m2); Glucose 106 mg/dL (74-106); Potassium 4.9 mmol/L (3.5-5.1); Sodium 135 mmol/L (136-145); Total Protein 6.8 g/dL (6.4-8.2)
== END 2023-02-11 12:52 | disposition home or self-care (01) ==
LOC: LBN 12:51
PROVIDERS: PCP Nurse Practitioner; Visit Provider Nurse Practitioner Family
DX: R10.30 Lower abdominal pain, unspecified (principal); R79.89 Other specified abnormal findings of blood chemistry; R79.82 Elevated C-reactive protein (CRP)
CPT/HCPCS: 80053; 85025; 86140

== ENCOUNTER 2023-02-13 09:09 | Outpatient (CLI) | payer MEDICARE, SELFPAY ==
--- NOTE | 2023-02-13 | DI.CT_ITS ---
Exam(s) CT ABDOMEN PELVIS W EXAM: CT ABDOMEN PELVIS W CLINICAL HISTORY: LOW ABD PAIN, R10.30 TECHNIQUE: Imaging Protocol: Axial computed tomography images with coronal and sagittal reformatted images were created and reviewed CONTRAST MATERIAL: Intravenous: Omnipaque 350 Contrast volume:98 mL Oral: Yes COMPARISON: CT CT ABDOMEN PELVIS WO/W from 08/30/2022 FINDINGS: ABDOMEN: Lung Bases: Normal where visualized. Liver: Normal density. No measurable mass. Portal, Superior Mesenteric, and Splenic Veins: Unremarkable. Gallbladder and Biliary Tract: No radiodense calculus or dilation. Pancreas: Normal density, no abnormal calcifications or inflammatory process. Spleen: Normal. Adrenals: No masses seen. Kidneys: Normal size, contour and axis. No radiodense stones or obstructive uropathy. No masses seen. Abdominal Aorta: Abdominal portion non-dilated. Atherosclerosis. Bowel: There is diverticulosis seen in the colon. There is concentric wall thickening of a long segm ent of distal ileum. There is inflammatory stranding in the adjacent soft tissues. There is mild di latation of the small bowel proximally which may represent an ileus. There is no pneumatosis. There is a large duodenal diverticulum adjacent to the head of the pancreas. Appendix is unremarkable. Peritoneal Cavity: There is a small amount of pelvic ascites. No free air. Lymph Nodes: There are mildly enlarged lymph nodes seen in the mesentery. Bones: Within normal limits for the patient's age. Soft Tissues: Unremarkable. PELVIS: Bladder: There is thickening of the wall of the urinary bladder particularly on the left aspect. The left sided bladder mass is less well visualized on this examination which may be due to underdistent ion. Reproductive Organs: Unremarkable as visualized. Lymph Nodes: Within normal limits. Bones: Within normal limits for the patient's age. IMPRESSION: 1. Diffuse concentric thickening of a long segment of the distal ileum. Inflammatory stranding is se en in the adjacent soft tissues. Inflammatory or infectious enteritis is suspected. 2. Colonic diverticulosis without evidence of acute diverticulitis. 3. Small amount of pelvic ascites. 4. There is asymmetric thickening of the wall of the urinary bladder. Although the bladder mass is less well visualized which may be due to incomplete distension. RADIATION DOSE DELIVERED: Total DLP DATA REPOSITORY: All CT scans at this facility are submitted to the National Radiology Data Registry (NRDR) Dose Index Registry (DIR) with the [employer] (ACR). RADIATION OPTIMIZATION: All CT scans at this facility use at least one of these dose optimization te chniques: automated exposure control; mA and/or kV adjustment per patient size (includes targeted exa ms where dose is matched to clinical indication); or iterative reconstruction.
[2023-02-13] MEDS: Barium Sulfate 2% W/V-Berry Smoothie 450 ML BTL PO (12:58)
[2023-02-13] MEDS: Omnipaque 350 MG/ML 100 ML BTL IJ (14:46)
[2023-02-13] MEDS: Normal Saline - Diluent 50 ML VIAL IJ (14:47)
== END 2023-02-13 09:29 ==
LOC: DI 09:10
PROVIDERS: PCP Nurse Practitioner; Visit Provider Nurse Practitioner Family
DX: K57.30 Diverticulosis of large intestine without perforation or abscess without bleeding (principal)
CPT/HCPCS: 74177; J3490

== ENCOUNTER → 2023-02-21 07:50 | Outpatient (BNVA) | payer MEDICARE, SELFPAY | PROVIDERS: PCP Nurse Practitioner; Referring Provider Nurse Practitioner; Visit Provider Urology | DX: C67.9 Malignant neoplasm of bladder, unspecified (principal) | CPT/HCPCS: 99213 ==

== ENCOUNTER 2023-02-26 18:01 | Emergency (ER) | payer MEDICARE, SELFPAY ==
[2023-02-26] VITALS (12 sets, daily range): BP systolic 106–135; BP diastolic 70–90; PULSE 84–104; RESP 15–16; TEMP 36.4–36.5; O2SAT 98–100
--- NOTE | 2023-02-26 | DI.CT_ITS ---
Exam(s) CT ABDOMEN PELVIS W EXAM: CT ABDOMEN PELVIS W CLINICAL HISTORY: abd pain TECHNIQUE: Imaging Protocol: Axial computed tomography images with coronal and sagittal reformatted images were created and reviewed CONTRAST MATERIAL: Intravenous: Omnipaque 350 Contrast volume:100 mL Oral: No COMPARISON: CT CT ABDOMEN PELVIS W from 02/13/2023 FINDINGS: ABDOMEN: Lung Bases: Normal where visualized. Liver: Normal density. No measurable mass. Portal, Superior Mesenteric, and Splenic Veins: Unremarkable. Gallbladder and Biliary Tract: No radiodense calculus or dilation. Pancreas: Normal density, no abnormal calcifications or inflammatory process. Spleen: Normal. Adrenals: No masses seen. Kidneys: Normal size, contour and axis. No radiodense stones or obstructive uropathy. No masses seen. Abdominal Aorta: Abdominal portion non-dilated. Atherosclerosis. Bowel: There is diverticulosis seen in the colon. There is mild wall thickening seen in the sigmoid colon. This may be due to underdistention. There is mild pericolonic stranding and colitis/divertic ulitis cannot be excluded. There is no evidence of bowel obstruction. There is a normal appendix pr esent. There is a persistent area of wall thickening seen in the distal small bowel. No evidence of pneumatosis.. There is a large diverticulum associated with the duodenum. Peritoneal Cavity: There is a trace amount of free fluid in the pelvis. No free air. Lymph Nodes: Within normal limits. Bones: Within normal limits for the patient's age. Soft Tissues: Unremarkable. PELVIS: Bladder: There is diffuse thickening of the wall of the urinary bladder. This is particularly noted in the dome of the urinary bladder near the involved abnormal small bowel. Reproductive Organs: Unremarkable as visualized. Lymph Nodes: Within normal limits. Bones: Within normal limits for the patient's age. IMPRESSION: 1. Persistent long segment of bowel wall thickening in the distal ileum suspicious for enteritis. No evidence to suggest perforation or abscess. 2. Mild bowel wall thickening seen in the sigmoid colon and rectum which may represent developing col itis/diverticulitis. Underdistention should also be considered. 3. Trace amount of free fluid in the pelvis. No abscess or free air. 4. Urinary bladder wall thickening in close proximity to the bowel inflammatory changes. This may be reactive secondary to the adjacent enteritis. No evidence to suggest a fistula is seen. RADIATION DOSE DELIVERED: Total DLP DATA REPOSITORY: All CT scans at this facility are submitted to the National Radiology Data Registry (NRDR) Dose Index Registry (DIR) with the [employer] (ACR). RADIATION OPTIMIZATION: All CT scans at this facility use at least one of these dose optimization te chniques: automated exposure control; mA and/or kV adjustment per patient size (includes targeted exa ms where dose is matched to clinical indication); or iterative reconstruction.
[2023-02-26] MEDS: Lactated Ringers 1,000 ML 1000 ML IV (18:35)
[2023-02-26 18:44] LABS: Lactate 1.2 mmol/L (0.6-1.4)
[2023-02-26 18:45] LABS: Abs Immature Grans 0.02 10^3/uL (0.0-0.06); Absolute Basophil Count 0.02 10^3/uL (0.0-0.2); Absolute Lymphocyte Count 0.85 10^3/uL (1.2-3.4); Absolute Neutrophil Count 4.31 10^3/uL (1.2-6.7); Basophils % 0.3; Eosinophils % 1.7; HCT 37.3 % (40.0-50.0); HGB 12.4 g/dL (13.5-17.5); Immature Grans % 0.3; Lymphocytes % 14.2; MCH 32.3 pg (27.0-33.0); MCHC 33.2 % (32.0-36.0); MCV 97 fL (80-95); MPV 9.2 fL (8.0-11.0); Monocytes % 11.7; Neutrophils % 71.8; Platelet Count 377 10^3/uL (130-400); RBC 3.84 10^6/uL (4.36-5.78); RDW 13.1 % (11.8-14.1); RDW-SD 46.2 fL
[2023-02-26 18:58] LABS: Lipase 50 U/L (16-77)
[2023-02-26 19:01] LABS: ALT 16 U/L (16-63); AST 14 U/L (15-37); Albumin 3.1 g/dL (3.4-5.0); Alkaline Phosphatase 86 U/L (46-116); Anion Gap 5.3 mmol/L (3-11); BUN 26 mg/dL (7-18); Bilirubin, Total 0.3 mg/dL (0.2-1.0); CO2 30.7 mmol/L (21.0-32.0); Calcium 9.7 mg/dL (8.5-10.1); Chloride 98 mmol/L (98-107); Estimated GFR 81.47 (mL/min/1.73m2); Glucose 116 mg/dL (74-106); Magnesium 2.3 mg/dL (1.8-2.4); Potassium 4.6 mmol/L (3.5-5.1); Sodium 134 mmol/L (136-145); Total Protein 7.1 g/dL (6.4-8.2)
[2023-02-26] MEDS: Omnipaque 350 MG/ML 100 ML BTL IJ (19:21)
[2023-02-26] MEDS: Normal Saline - Diluent 50 ML VIAL IJ (19:21)
[2023-02-26] MEDS: Normal Saline Flush 10 ML SYR IVP (19:22)
--- NOTE | 2023-02-26 19:57 | DI.VRAD_ITS ---
PROCEDURE INFORMATION: Exam: CT Abdomen And Pelvis With Contrast Exam date and time: 02/26/2023 7:07 PM Age: 67 years old Clinical indication: Abdominal pain; Additional info: Abd pain TECHNIQUE: Imaging protocol: Computed tomography of the abdomen and pelvis with contrast. COMPARISON: CT ABDOMEN PELVIS W 02/13/2023 2:44 PM. No prior report. FINDINGS: Lungs: Mild atelectasis in the lung bases. Heart: Heart size normal. Diaphragm: Small hiatal hernia. Liver: Normal contour. No mass lesions. No intrahepatic biliary ductal dilatation. Gallbladder and bile ducts: The gallbladder is partially contracted but otherwise unremarkable. Nondilated common bile duct. Moderate-sized periampullary duodenal diverticulum noted. Pancreas: Normal. No inflammatory changes or ductal dilation. Spleen: Normal. No splenomegaly. Adrenal glands: Normal. No adrenal mass. Kidneys and ureters: No acute abnormalities. No hydronephrosis or hydroureter. No urinary tract stones are identified. Stomach and bowel: The stomach is unremarkable. Long segment small bowel wall thickening in the distal ileum consistent with active enteritis again noted with no significant interval change in extent or severity since 02/13/2023. No evidence of perforation or obstruction. There is moderate colonic diverticulosis distributed throughout the colon, greatest distally. The mid and distal colonic segments are largely contracted, probably contributing to the thick-walled appearance in the sigmoid colon and rectum although there is mild pericolonic stranding present which is new, raising concern for an element of developing colitis. No perforation or abscess. Appendix: The appendix is normal in caliber and demonstrates no evidence of appendicitis. Intraperitoneal space: Trace intrapelvic simple fluid, decreased in volume from prior. No free air. Vasculature: No acute process. No abdominal aortic aneurysm. Mild calcific atherosclerosis. Lymph nodes: No adenopathy. Urinary bladder: Mild bladder wall thickening in the dome near the enteritis consistent with reactive changes with no gross fistula visualized. Reproductive: Mildly enlarged prostate. Bones/joints: No acute osseous abnormalities. Severe disc degenerative changes L4-L5 and L5-S1 with mild-moderate lower lumbar osteoarthritic facet hypertrophy. Soft tissues: Very small fatty umbilical hernia . No evidence of associated bowel herniation or strangulation. IMPRESSION: 1. The recently identified long segment active enteritis in the distal ileum is unchanged in distribution and severity from 02/13/2023 with no evidence of associated bowel obstruction or perforation. No gross fistula or abscess. 2. Mildly increased bowel wall thickening in surrounding stranding in the sigmoid colon and rectum suspicious for developing element of colitis, although contracted status may be contributing to the appearance. 3. Moderate diverticulosis without localized changes of diverticulitis. 4. Trace intrapelvic simple fluid, decreased in volume from prior scan. No peritoneal abscess. No free air. 5. Bladder wall thickening in the leftward bladder dome is likely reactive due to proximity to bowel inflammatory changes. No gross fistula development at this point. 6. Additional nonemergent findings detailed above. Dictated and Authenticated by: Darshan Ford MD. Ordering:KRISTOPHER Hu MD
--- NOTE | 2023-02-26 20:25 | W.ED.GENAD ---
Discharge Plan Disposition Patient Disposition: Home Condition: Stable Discharge Details Clinical Impression: Acute UTI, Abdominal pain Primary Care Provider: Chastity Amor ED Provider: Mayte Schaefer Home Meds and New Rx's Prescriptions: New cefpodoxime 200 mg tablet 200 mg PO BID Qty: 14 0RF Rx Instructions: must administer with a meal/food Continued Excedrin Migraine 250-250-65 mg Tablet 1 tab PO DIRECTED Patient Comments: pt states not taking Discharge Instructions Instructions: Urinary Tract Infection in Men (ED), Abdominal Pain (ED) Additional Instructions: take antibiotic as prescribed unless directed by outpatient team, your urine culture and sensitivities as still pending and will likely take several days to be resulted. push fluids to stay well hydrated. eat small frequent meals, use protein and nutritional supplements to help supplement your diet. keep any scheduled follow up appointments with DR Harris. Referrals: Karthikeyan Cordova MD [ [facility] STAFF PHYSICIAN] - Chastity Amor TRAINING DESIGNER [Primary Care Provider] - Medical Decision Making this is a 67 year old s/p bladder cancer treated with radiation and gemcitabine who developed postprandial abdominal pain following his treatment 2 months ago no with associated weight loss referred to ED for evaluation after unremarkable CT and labs started on Bentyl with worsening symptoms. hemodynamcially he is stable with a non surgical abdominal exam. will obtain routine abd pain lab and repeat CT scan. he will also be given 1 liter of lactate ringers. he remains hemodynamically stable with unchanged abdominal exam while being monitored in the ED. he denies nausea and is tolerating good oral fluids. urine results reviewed and will give ceftriaxone 1 gm IVPB while culture pending. plan to discharge to home on cefpodoxime. Medical Records Medical records reviewed: Yes I reviewed the patient's medical records. Medical records narrative: Exam(s) PROCEDURE INFORMATION: Exam: CT Abdomen And Pelvis With Contrast Exam date and time: 02/26/2023 7:07 PM Age: 67 years old Clinical indication: Abdominal pain; Additional info: Abd pain TECHNIQUE: Imaging protocol: Computed tomography of the abdomen and pelvis with contrast. COMPARISON: CT ABDOMEN PELVIS W 02/13/2023 2:44 PM. No prior report. FINDINGS: Lungs: Mild atelectasis in the lung bases. Heart: Heart size normal. Diaphragm: Small hiatal hernia. Liver: Normal contour. No mass lesions. No intrahepatic biliary ductal dilatation. Gallbladder and bile ducts: The gallbladder is partially contracted but otherwise unremarkable. Nondilated common bile duct. Moderate-sized periampullary duodenal diverticulum noted. Pancreas: Normal. No inflammatory changes or ductal dilation. Spleen: Normal. No splenomegaly. Adrenal glands: Normal. No adrenal mass. Kidneys and ureters: No acute abnormalities. No hydronephrosis or hydroureter. No urinary tract stones are identified. Stomach and bowel: The stomach is unremarkable. Long segment small bowel wall thickening in the distal ileum consistent with active enteritis again noted with no significant interval change in extent or severity since 02/13/2023. No evidence of perforation or obstruction. There is moderate colonic diverticulosis distributed throughout the colon, greatest distally. The mid and distal colonic segments are largely contracted, probably contributing to the thick-walled appearance in the sigmoid colon and rectum although there is mild pericolonic stranding present which is new, raising concern for an element of developing colitis. No perforation or abscess. Appendix: The appendix is normal in caliber and demonstrates no evidence of appendicitis. Intraperitoneal space: Trace intrapelvic simple fluid, decreased in volume from prior. No free air. Vasculature: No acute process. No abdominal aortic aneurysm. Mild calcific atherosclerosis. Lymph nodes: No adenopathy. Urinary bladder: Mild bladder wall thickening in the dome near the enteritis consistent with reactive changes with no gross fistula visualized. Reproductive: Mildly enlarged prostate. Bones/joints: No acute osseous abnormalities. Severe disc degenerative changes L4-L5 and L5-S1 with mild-moderate lower lumbar osteoarthritic facet hypertrophy. Soft tissues: Very small fatty umbilical hernia . No evidence of associated bowel herniation or strangulation. IMPRESSION: 1. The recently identified long segment active enteritis in the distal ileum is unchanged in distribution and severity from 02/13/2023 with no evidence of associated bowel obstruction or perforation. No gross fistula or abscess. 2. Mildly increased bowel wall thickening in surrounding stranding in the sigmoid colon and rectum suspicious for developing element of colitis, although contracted status may be contributing to the appearance. 3. Moderate diverticulosis without localized changes of diverticulitis. 4. Trace intrapelvic simple fluid, decreased in volume from prior scan. No peritoneal abscess. No free air. 5. Bladder wall thickening in the leftward bladder dome is likely reactive due to proximity to bowel inflammatory changes. No gross fistula development at this point. 6. Additional nonemergent findings detailed above. Dictated and Authenticated by: Darshan Ford MD. Ordering:KRISTOPHER Hu MD Imaging Data Radiologic Study: Imaging: CT Scan Lab Data Lab results reviewed: Yes I reviewed the patient's lab results. Labs: 02/26/23 20:22 Urine - Reflex from Ua Urine Culture - Pending Laboratory Tests Range/Units 02/26/23 02/26/23 18:22 20:22 WBC (4.4-10.8) 10^3/uL 6.00 RBC (4.36-5.78) 10^6/uL 3.84 L Hgb (13.5-17.5) g/dL 12.4 L Hct (40.0-50.0) % 37.3 L MCV (80-95) fL 97 H MCH (27.0-33.0) pg 32.3 MCHC (32.0-36.0) % 33.2 RDW (11.8-14.1) % 13.1 Plt Count (130-400) 10^3/uL 377 MPV (8.0-11.0) fL 9.2 Immature Gran % 0.3 Neutrophils % 71.8 Lymphocytes % 14.2 Monocytes % 11.7 Eosinophils % 1.7 Basophils % 0.3 Nucleated RBC % (0.0-0.3) % 0.0 Absolute Neutrophils (1.2-6.7) 10^3/uL 4.31 Absolute Lymphocytes (1.2-3.4) 10^3/uL 0.85 L Absolute Monocytes (0.1-0.8) 10^3/uL 0.70 Absolute Eosinophils (0.0-0.7) 10^3/uL 0.10 Absolute Basophils (0.0-0.2) 10^3/uL 0.02 VBG Lactate (0.6-1.4) mmol/L 1.2 Sodium (136-145) mmol/L 134 L Potassium (3.5-5.1) mmol/L 4.6 Chloride (98-107) mmol/L 98 Carbon Dioxide (21.0-32.0) mmol/L 30.7 Anion Gap (3-11) mmol/L 5.3 BUN (7-18) mg/dL 26 H Creatinine (0.70-1.30) mg/dL 1.0 Est GFR (CKD-EPI 2020) (mL/min/1.73m2) 81.47 Glucose (74-106) mg/dL 116 H Calcium (8.5-10.1) mg/dL 9.7 Magnesium (1.8-2.4) mg/dL 2.3 Total Bilirubin (0.2-1.0) mg/dL 0.3 AST (15-37) U/L 14 L ALT (16-63) U/L 16 Alkaline Phosphatase (46-116) U/L 86 Total Protein (6.4-8.2) g/dL 7.1 Albumin (3.4-5.0) g/dL 3.1 L Lipase (16-77) U/L 50 Urine Color (Yellow) Yellow Urine Clarity (Clear) Clear Urine pH (5-8) 5.5 Ur Specific [place] (1.005-1.025) 1.010 Urine Protein (Negative) mg/dL 30 H Urine Ketones (Negative) mg/dL 15 H Urine Blood (Negative) Trace-intact H Urine Nitrite (Negative) Negative Urine Bilirubin (Negative) Negative Urine Urobilinogen (Up to 0.2) mg/dL 0.2 Ur Leukocyte Esterase (Negative) Negative Urine RBC (0-2) HPF 0-2 Urine WBC (0-5) HPF 10-20 H Ur Epithelial Cells (Negative) HPF Rare Urine Crystals (Negative) HPF Negative Urine Bacteria (Negative) HPF Rare Urine Casts (Negative) LPF Negative Urine Mucus (Negative) Trace Ur Culture Indicated? Yes Urine Glucose (Negative) mg/dL Negative HPI General Mode of arrival: ambulatory. Date/Time Provider Initiated Documentation: 02/26/23 18:02. Limitations to Documentation: no limitations. Information obtained by: patient. HPI Narrative: this is a a 67 year old male with past medical history of bladder cancer treated with gemcitabine and radiation completed 2 months ago, who after treatment developed poor po intake d/t postprandial lower abdominal pain. He states he was seen by his provider when and began and it was attributed to constipation and a bowel regimen was recommended. he states this did not relief his symptoms and that he subsequently has lost greater than 20 pounds. He presented 2 weeks ago to urgent care while awaiting pcp appointment secondary to ongoing symptoms and had lab work and CT scan which showed enteritis and he was started on bentyl with no improvement in his symptoms at some point he was given steroids as well, but did not start taking as he was concerned about the side effects. (at this point he was irritated that I was inquiring about the history as Dr Amor instructed him to come here and I should have access to her notes etc so not quite clear on full details of past 2 weeks). but what I understand is that he has had no fever, change in bowel movements and that last bm was today. Related Data Home Medications Medication Instructions Recorded Confirmed [id number] 250 1 tab PO DIRECTED 11/14/22 01/13/23 mg-250 mg-65 mg tablet (Excedrin Migraine) cefpodoxime 200 mg tablet 200 mg PO BID #14 tabs 02/26/23 Previous Rx's Medication Instructions Recorded cefpodoxime 200 mg tablet 200 mg PO BID #14 tabs 02/26/23 Allergies Allergy/AdvReac Type Severity Reaction Status Date / Time Penicillins Allergy Unknown Verified 02/26/23 17:07 General Stated Complaint: [facility]Medical REYNA: 3 Review of Systems All systems reviewed & are unremarkable except as noted in HPI and below PFSH All Active Problems (Updated 02/26/23 @ 20:52 by Mayte Schaefer NP) Abdominal pain (Acute) Acute UTI (Acute) History of insertion of tunneled central venous catheter (CVC) with port (Acute) Hypomagnesemia (Acute ~11/2022) [facility] Hem/Onc - being treated Corns and callosities (Acute) Bladder mass (Acute) Bladder cancer (Acute) 10/16/22 F/u with Radiology 10/23/22 [facility] Rad/Onc - pt will be proceeding with ChemoRT 11/26/22 F/U [facility] Hem/Onc 12/03/22 f/u [facility] hem/onc Surgical History History of transurethral resection of bladder tumor (TURBT) Hx of cystoscopy Port-A-Cath in place (~10/2022) Family History Sister Breast cancer Social History Smoking/Tobacco Use Status: Former Tobacco Use Quit Date: 04/28/89 Tobacco: How many years used: 5 Second Hand Exposure: No Smoking risk assessment performed?: Yes Alcohol Intake: current Alcohol Intake frequency: a few times a month Alcohol type: wine Counseling given: No Drug use: Occasionally Substance use type: marijuana Adopted: No Caregiver/Support person: No Foster care: No Household members: significant other Housing: house Number of Children: 0 Communication Needs: None Education Level: college Details: associate's degree Do you need help understanding health information?: Rarely current occupation: musician Pets and animals: Yes Pets and animals: dog(s) Do you think of yourself as: straight/heterosexual Current gender identity: male What is your relationship status?: How often do you talk on the phone with friends or family?: twice per week How often do you get together with friends or relatives?: twice per week Do you belong to any clubs or organized social groups?: no Panel score (0-1 are the most socially isolated patients): 1 What type of physical activity do you participate in: walking Duration: 15-30 minutes/day Frequency: 3-4 times per week Jessica/Denominational: None Special jessica needs: No Seatbelt use: always Drive intox or ride w/intox dray truck driver: No Working smoke detector in home: Yes Carbon monox detector in home: Yes Do you feel safe at home: Yes Do you feel safe in your relationship?: Yes Exam Const General: no acute distress Nutritional Appearance: thin Orientation: alert, awake and oriented x3 HENMT Head: normal to inspection, normocephalic and atraumatic Mouth: moist mucous membranes abnormal (dry) Neck Neck: normal visual inspection, full ROM and no JVD Chest Chest: normal inspection of the chest Resp Effort & Inspection: normal respiratory effort Cardio Rate: regular rate Rhythm: regular rhythm GI Inspection: normal to inspection Palpation: soft, no guarding, no hernias, no masses and tender in the LLQ and in the RLQ Auscultation: normal bowel sounds Other: no abdominal surgical scars Skin General skin exam: no rashes or lesions noted Neuro General: patient alert, patient awake, patient oriented x3 and no focal motor deficits Extrem General: normal to inspection, full ROM and no pedal edema Course Vital Signs Vital signs: Vital Signs Temperature 36.5 C 02/26/23 18:04 Pulse 103 H 02/26/23 18:04 Respiratory Rate 16 02/26/23 18:04 Blood Pressure 123/73 02/26/23 18:04 Pulse Oximetry 100 02/26/23 18:04 Temperature 36.5 C 02/26/23 18:04 Temperature Source Oral 02/26/23 18:04 Pulse 98 H 02/26/23 18:15 Respiratory Rate 15 02/26/23 18:10 Respiratory Effort Normal 02/26/23 18:10 Respiratory Depth Normal 02/26/23 18:10 Respiratory Pattern Normal 02/26/23 18:10 Blood Pressure 135/90 02/26/23 18:15 Blood Pressure Mean 103 02/26/23 18:15 Blood Pressure Position Sitting 02/26/23 18:04 Pulse Oximetry 98 02/26/23 18:50 Oxygen Delivery Method Room Air 02/26/23 18:04 Oxygen Flow Rate 0 02/26/23 18:04 Lab/Test Results Lab/Test Results: Laboratory Tests Range/Units 02/26/23 18:22 WBC (4.4-10.8) 10^3/uL 6.00 RBC (4.36-5.78) 10^6/uL 3.84 L Hgb (13.5-17.5) g/dL 12.4 L Hct (40.0-50.0) % 37.3 L MCV (80-95) fL 97 H MCH (27.0-33.0) pg 32.3 MCHC (32.0-36.0) % 33.2 RDW (11.8-14.1) % 13.1 Plt Count (130-400) 10^3/uL 377 MPV (8.0-11.0) fL 9.2 Immature Gran % 0.3 Neutrophils % 71.8 Lymphocytes % 14.2 Monocytes % 11.7 Eosinophils % 1.7 Basophils % 0.3 Nucleated RBC % (0.0-0.3) % 0.0 Absolute Neutrophils (1.2-6.7) 10^3/uL 4.31 Absolute Lymphocytes (1.2-3.4) 10^3/uL 0.85 L Absolute Monocytes (0.1-0.8) 10^3/uL 0.70 Absolute Eosinophils (0.0-0.7) 10^3/uL 0.10 Absolute Basophils (0.0-0.2) 10^3/uL 0.02 VBG Lactate (0.6-1.4) mmol/L 1.2 Sodium (136-145) mmol/L 134 L Potassium (3.5-5.1) mmol/L 4.6 Chloride (98-107) mmol/L 98 Carbon Dioxide (21.0-32.0) mmol/L 30.7 Anion Gap (3-11) mmol/L 5.3 BUN (7-18) mg/dL 26 H Creatinine (0.70-1.30) mg/dL 1.0 Est GFR (CKD-EPI 2020) (mL/min/1.73m2) 81.47 Glucose (74-106) mg/dL 116 H Calcium (8.5-10.1) mg/dL 9.7 Magnesium (1.8-2.4) mg/dL 2.3 Total Bilirubin (0.2-1.0) mg/dL 0.3 AST (15-37) U/L 14 L ALT (16-63) U/L 16 Alkaline Phosphatase (46-116) U/L 86 Total Protein (6.4-8.2) g/dL 7.1 Albumin (3.4-5.0) g/dL 3.1 L Lipase (16-77) U/L 50
[2023-02-26 20:29] LABS: Bilirubin Negative (Negative); Blood Trace-intact (Negative); Clarity Clear (Clear); Glucose Negative (Negative); Ketones 15 mg/dL (Negative); Leukocyte Esterase Negative (Negative); Nitrite Negative (Negative); Urobilinogen 0.2 mg/dL (Up to 0.2); pH 5.5 (5-8)
[2023-02-26 20:35] LABS: Bacteria Rare HPF (Negative); C & S Indicated? Yes; Casts Negative LPF (Negative); Crystals Negative HPF (Negative); Epithelial Cells Rare HPF (Negative); Mucus Trace (Negative); RBC 0-2 HPF (0-2)
[2023-02-26] MEDS: cefTRIAXone 1 GM/50 ML BAG IVPB (20:48)
== END 2023-02-26 21:38 | disposition home or self-care (01) ==
PROVIDERS: Emergency Provider Nurse Practitioner Acute Care; PCP Nurse Practitioner
DX: R10.9 Unspecified abdominal pain (principal); N39.0 Urinary tract infection, site not specified; Z85.51 Personal history of malignant neoplasm of bladder; Z92.21 Personal history of antineoplastic chemotherapy; Z92.3 Personal history of irradiation; Z79.82 Long term (current) use of aspirin; Z88.0 Allergy status to penicillin
CPT/HCPCS: 80053; 83690; 96361; 96365; 99285; 74177; 81003; 81015; 83605; 83735; 85025; 87086; 99284; J0696; J3490

== ENCOUNTER 2023-03-05 02:35 | Outpatient (CLI) | payer MEDICARE, SELFPAY ==
--- NOTE | 2023-03-05 11:50 | TELEFU_ITS ---
Date of service: 03/05/23 Time of Service: 11:00 Nutrition Note NOTE: Mr Castaneda came in for nutrition visit today after struglling with unintentional weight loss of about 33 pounds (15.2kg). He went from 85.7kg on 10/09/22 to 70.5kg today. He started radiation cancer treatment this summer and states especially since December he has postprandial GI pain which has limited his intake. He reports hard to pass stools that come out in small amounts - between constipation and diarrhea. He has mostly been able to tolerate boost nutrition drinks. 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 We reviewed a plan for his diet, starting with a liquidized/blenderized consistency of blander food choices (Avoid spicy and greasy foods, cruciferous veggies, carbonation, etc..). We reviewed staying on this diet for at least 2 days to give his gut a rest before advancing. Suggested low sodium soups added to pulp grinder and blender, smoothies, baby foods, thin cream of wheat and instant oats, boost drinks or others, bone broth. Suggested he try some lactase enzyme pills OTC to help tolerate dairy for extra kcals for a few weeks and also l-glutamine at 5 g per day for 10 days and then 10g per day for another 10 days to help with healing of the mucosal lining. Suggested he look into probiotics as supplement or take yogurts/kefir (with lactase pill). Suggested he look to advance to low residue diet of 8g fiber per day or less over the weekend if liquidized consistencies are tolerated. We reviewed handouts and sample menus for this diet. Plan was made to give Shadi a call on Friday to check on how toleration of diet is going. and continue to support once advanced with high kcal and protein diet therapy. Time Spent in Nutritional Counseling and Treatment: 45 minutes
== END 2023-03-05 02:36 | disposition home or self-care (01) ==
LOC: DS 02:35
PROVIDERS: PCP Nurse Practitioner; Visit Provider Dietitian, Registered
DX: K52.0 Gastroenteritis and colitis due to radiation (principal); R63.4 Abnormal weight loss; Z92.3 Personal history of irradiation
CPT/HCPCS: 00123; 99214

== ENCOUNTER 2023-03-19 04:03 | Outpatient (CLI) | payer MEDICARE, SELFPAY ==
[2023-03-19 11:14] LABS: Abs Immature Grans 0.01 10^3/uL (0.0-0.06); Absolute Basophil Count 0.02 10^3/uL (0.0-0.2); Absolute Eosinophil Count 0.03 10^3/uL (0.0-0.7); Absolute Lymphocyte Count 0.64 10^3/uL (1.2-3.4); Absolute Monocyte Count 0.47 10^3/uL (0.1-0.8); Absolute Neutrophil Count 3.75 10^3/uL (1.2-6.7); Basophils % 0.4; Eosinophils % 0.6; HCT 35.7 % (40.0-50.0); Immature Grans % 0.2; MCH 32.1 pg (27.0-33.0); MCHC 33.6 % (32.0-36.0); MCV 96 fL (80-95); MPV 9.2 fL (8.0-11.0); Monocytes % 9.6; Neutrophils % 76.2; Platelet Count 311 10^3/uL (130-400); RBC 3.74 10^6/uL (4.36-5.78); RDW 12.3 % (11.8-14.1); RDW-SD 42.5 fL; WBC 4.92 10^3/uL (4.4-10.8)
== END 2023-03-19 04:04 | disposition home or self-care (01) ==
LOC: LBO 04:04
PROVIDERS: Surgery; PCP Nurse Practitioner; Visit Provider Nurse Practitioner
DX: R19.7 Diarrhea, unspecified (principal); K92.1 Melena
CPT/HCPCS: 85025; 87177

== ENCOUNTER → 2023-04-02 09:37 | Outpatient (BNVA) | payer MEDICARE, SELFPAY | PROVIDERS: PCP Nurse Practitioner; Visit Provider Surgery | DX: K52.0 Gastroenteritis and colitis due to radiation (principal) | CPT/HCPCS: 99214 ==

== ENCOUNTER 2023-04-25 10:42 | Day surgery (SDC) | payer MEDICARE, SELFPAY ==
--- NOTE | 2023-04-24 20:48 | W.PM.DSUDISC ---
Date of service: 04/25/23 Time of Service: 13:35 Discharge Plan Disposition Patient Disposition: Home Condition: Good Discharge Details Reason For Visit: diagnostic colonoscopy Attending Provider: Karthikeyan Cordova Primary Care Provider: Chastity Amor Home Meds and New Rx's Prescriptions: Continued ibuprofen 400 mg tablet 400 mg PO DAILY Qty: 30 0RF Rx Instructions: Take 1 tablet by mouth with lunch loperamide 2 mg capsule 2 mg PO Q6H PRN (Reason: loose stool) Qty: 10 0RF Patient Comments: 04/25/23: pt reports he has never take this medication Rx Instructions: If you have diarrhea, take 2 capsules immediately afterwards. Then take another capsule after each loose bowel movement afterwards do not take more than 8 capsules in 1 day Excedrin Migraine 250-250-65 mg Tablet 1 tab PO DIRECTED Patient Comments: pt states not taking Discontinued polyethylene glycol 3350 17 gram/dose powder 238 g PO ONCE Qty: 238 0RF Rx Instructions: take per colonoscopy instructions bisacodyl [Dulcolax (bisacodyl)] 5 mg tablet,delayed release (DR/EC) 5 mg PO ONCE Qty: 4 0RF Rx Instructions: take per colonoscopy instructions Discharge Instructions Instructions: Diverticulosis (GEN), Diverticulosis Diet (GEN) Additional Instructions: Shadi, we were able to complete your colonoscopy today without any difficulty. You have extensive diverticulosis. Diverticula are weak spots in the colon wall that typically accumulate as we get older. They can certainly get infected and inflamed, and when that happens, patients typically experience a significant amount of pain usually on the left side of their abdomen, and sometimes down across the middle. I have attached some general information here regarding diverticular disease and its traditional management. And while I know that some of your symptoms match these, I suspect that in your case it is really inflammation of your small intestine as seen on your CT scan rather than diverticulitis that causes your pain. I did find 2 tiny spots within your large intestine that look consistent with radiation enteritis. This is scar tissue that results as a side effect of radiation treatment. Although my camera is not able to get into the small intestine where the abnormality is seen on your CAT scans, I am almost certain that the changes that I can see in your colon have affected a portion of your small intestine as well. Like we talked about in the office, many patients to experience radiation enteritis will have improvement of their symptoms with time. Unfortunately, there is no other great treatment. Surgery is an option, but it carries a significant amount of risk, especially as it relates to the location of the small intestine abnormality seen on your CAT scan relative to the location of your bladder. I did do a biopsy of one of the areas of inflammation just to see what it looks like under the microscope. Once I have that information I will be in touch. If you have any questions in the meantime, please do not hesitate to call. 1. If tolerated, consume a soft, low fiber diet for 1-2 days. [address] Do not drive, drink alcohol, operate machinery, make critical decisions, or do activities that require coordination or balance for 24 hours. 3. Because air was put into your colon during the procedure, expelling air from your rectum (passing gas or farting) is normal. 4. You may not have a bowel movement for 1-3 days because of the colonoscopy prep. This is normal. 5. Go directly to the emergency room if you notice any of the following: Develop chills (warm to touch), or if you have a thermometer and your temperature is above 101 Difficulty breathing or difficultly swallowing Persistent vomiting Severe abdominal pain, other than gas cramps Severe chest pain Black, tarry stools Any bleeding ? exceeding one tablespoon 6. Call your physician if the site where your intravenous was started becomes red, swollen, painful, and warm to touch. 7. Your physician has reviewed your pre-procedure medications. Please continue to take those medications as previously ordered. You will be given specific information/education regarding any changes to your medications before leaving. Activity:: Activity as Tolerated Activity:: Activity as Tolerated Diet:: As Tolerated Discharge Orders Discharge Orders: Discharge Order (Routine); Ordered 04/24/23 Ordered By: Karthikeyan Cordova DS: Diagnosis Discharge Diagnosis (1) Diarrhea: Status: Acute
--- NOTE | 2023-04-24 20:49 | W.COLOREPORT ---
Date of service: 04/25/23 Time of Service: 13:39 Colonoscopy Report Date of procedure: 04/25/23 Pre-op diagnosis general: Diarrhea Post-op diagnosis procedure note: other (Diverticulosis, with 2 tiny areas of radiation change) Procedure: diagnostic colonoscopy with biopsy Surgeon: Karthikeyan Cordova Anesthesia Type: General:No Airway Estimated blood loss (mL): 5 Pathology: other (Cecal biopsy) Complications: None Disposition: same day Indications: Shadi is a 67-year-old male who is experienced significant amount of lower abdominal pain. 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 However, he has experienced some diarrhea as well. Therefore, I think a diagnostic colonoscopy is in his best interest. Prep: Miralax/Dulcolax Procedure Start Time: 12:59 Procedure End Time: 13:19 Retraction Time: 12 Findings: Extensive pandiverticulosis. 2 foci of mucosal change that seem consistent with radiation colitis Procedure Description: After the induction of monitored anesthetic care, and with the patient in left lateral decubitus position, I began by performing an external anorectal exam.? Perineum and skin were normal, as was the anal verge.? There was no evidence of external hemorrhoids.? Next, I performed a digital rectal exam.? I did not appreciate any abnormal findings.? Next, I advanced a colonoscope into the rectal vault.? I performed retroflexion.? I this was normal.? Using insufflation, I then advanced the colonoscope beyond the rectal folds and into the sigmoid colon before advancing towards the cecum.? There is pandiverticulosis. There is no stigmata of recent bleeding. The scope was noted to be in the cecum by identification of the ileocecal valve and appendiceal orifice.? Opposite the ileocecal valve, is a small area of mucosal change that has clinical features consistent with fibrosis. Narrowband imaging was used to assist with examination. I suspect this is of focus of radiation colitis. I did perform a cold forcep biopsy of the area. I then began withdrawing the colonoscope using repeated irrigation as necessary for full evaluation of the colonic mucosa. ?Another small area of mucosal change was seen within the sigmoid colon. It looks very similar to the cecal changes. I suspect this is a foci of radiation colitis as well. Once the scope was withdrawn to the level of the rectum, great care was taken to examine portions of the rectal folds.? Otherwise, I did not see any signs of tumors, polyps, or anything else worrisome. There were no clinical features consistent with Crohn's disease or ulcerative colitis. Finally, the scope was withdrawn and the patient was brought to the same-day surgery recovery unit as the anesthetic wore off. ?The findings and instructions were shared with the patient prior to discharge. [place] Bowel Prep [place] Bowel Prep Right Colon: 3 Left Colon: 3 Transverse Colon: 3 Total Score: 9
--- NOTE | 2023-04-25 06:50 | ANES.PREOP_ITS ---
General Info Date of Service Date Performed: 04/25/23 Height: 6 ft 3 in Weight: 71.838 kg Body Mass Index (BMI): 19.8 Surgical Procedure: Operation Date: 04/25/23 14:35 Proposed Procedure Side Surgeon p Mattie Cordova MD Meds Allergies and Home Medications Allergies Allergy/AdvReac Type Severity Reaction Status Date / Time Penicillins Allergy Unknown Verified 04/25/23 11:51 Home Medication Medication Instructions Recorded ihrnjkx-dmpvqscmalwwb-grftqhre 250 1 tab PO DIRECTED 11/14/22 mg-250 mg-65 mg tablet (Excedrin Migraine) ibuprofen 400 mg tablet 400 mg PO DAILY #30 tabs 03/05/23 loperamide 2 mg capsule 2 mg PO Q6H PRN loose stool #10 03/17/23 caps Current Visit Medications: Current Medications Generic Name Dose Route Start Last Admin Trade Name Freq PRN Reason Stop Dose Admin Hyoscyamine Sulfate 0.125 mg 04/24/23 20:50 Hyoscyamine 0.125 Mg Sl/Oral/Chew SL 05/24/23 20:49 DIRECTED PRN Ringer's Solution 1,000 mls @ 80 mls/hr 04/25/23 06:00 IV 04/25/23 23:59 INFUSION [facility] IV Miscellaneous Supplies 1 each 04/25/23 06:00 Iv Access IV 04/25/23 23:59 DIRECTED RAFFY Ondansetron HCl 4 mg 04/24/23 20:50 Ondansetron 4 Mg/2 Ml Vial IVP 05/24/23 20:49 Q4H PRN PRN Nausea / Vomiting Sodium Chloride 0 ml 04/25/23 06:00 Normal Saline Flush 10 Ml Syr IV 04/25/23 23:59 PRN PRN Sodium Chloride 0 ml 04/25/23 06:00 Normal Saline 10 Ml Vial IJ 04/25/23 23:59 DIRECTED PRN Sterile Water 0 ml 04/25/23 06:00 Water,Injection,Sterile 10 Ml Vial IJ 04/25/23 23:59 DIRECTED PRN PFSH Active Problems Active Problems: Problem Status Onset Code Diarrhea R19.7 Hematochezia K92.1 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 History of insertion of tunneled central venous catheter (CVC) with port Z98.890 Hypomagnesemia ~11/2022 E83.42 Bladder cancer C67.9 Bladder mass N32.89 Corns and callosities L84 Surgical History Surgical History Port-A-Cath in place (~10/2022) Removed History of transurethral resection of bladder tumor (TURBT) Last chemo/radiation tx per pt was 01/07/23 Hx of cystoscopy Tobacco Smoking/Tobacco Use Status: Former Tobacco Use Passive smoking exposure: No Second hand exposure: No Alcohol Alcohol Intake: current Alcohol intake frequency: a few times a month Alcohol ty pe: wine Substance Use Substance use: Occasionally Substance use type: marijuana Vital Signs and Lab Results Vital Signs Most Recent Vital Signs in EMR: Temp Pulse Resp BP Pulse Ox 36.3 C L 99 H 16 110/78 99 04/25/23 11:36 04/25/23 11:36 04/25/23 11:36 04/25/23 11:36 04/25/23 11:36 Lab Results Blood Type / Crossmatch: No Data to Display Complete Blood Count: No Data to Display Complete Metabolic Panel: No Data to Display Liver Function Panel: No Data to Display Coagulation Panel: No Data to Display Cardiac Panel: No Data to Display Arterial Blood Gas: No Data to Display Venous Blood Gas: No Data to Display Pancreas Panel: No Data to Display Thyroid Panel: No Data to Display Infectious Disease: No Data to Display Blood Cultures: No Data to Display Toxicology Panel: No Data to Display Anesthesia Assessment and Plan Anesthesia History Personal History: No History of Anesthesia Complications Family History: No Family History of Anesthesia Complications Exercise Tolerance Exercise Tolerance: Metabolic Equivalents>4 Cardiac & Pulmonary Exam Cardiac Exam: Normal S1/S2 Heart Sounds Pulmonary Exam: Clear Bilateral Breath Sounds Implantable Cardiac Device Does patient have a Pacemaker or an ICD?: No Airway Exam Known Difficult Airway: No Mallampati Class: 2 Mouth Opening: Normal (> 3cm) Thyromental Distance: Greater than 3 cm Neck Range of Motion: Full ROM Neck Circumference: Normal Teeth Condition: Normal Dentition and Generalized Poor Dentition ASA Classification ASA Score: ASA 2 Emergency Case?: No NPO Status NPO Status: NPO Clears >2 hours, Solids >8 hours Anesthesia Plan Resuscitation Status: Full Code Anesthesia Technique: General Anesthesia Airway Planned: Natural Airway Monitors Used: Standard Monitors Preoperative Comments:: 67 yo male for colo. Sig PMHx: bladder CA (radiation, chemo), former smoker, occ cannabis, Previous Anes: - kofi cath, prop, LMA 4, no issues. - TUBT, prop, natural airway, angela.
[2023-04-25 11:36] VITALS: BP 110/78; PULSE 99; RESP 16; TEMP 36.3; O2SAT 99
[2023-04-25] MEDS: Lactated Ringers 1,000 ML 80 ML IV (11:43)
[2023-04-25 12:05] VITALS: BMI 19.8
--- NOTE | 2023-04-25 13:11 | BOWEL_PTH ---
PATIENT: Shadi Castaneda LOC: [facility] U#:[id number] AGE/SX: 67/M ROOM: RE04/25/[address]: Karthikeyan Cordova MD : 1955 BED: DIS: 04/25/2023 SPEC #: [id number]: RECD: 04/25/23 13:33 STATUS: GISELLE RE #: [id number] MED: 04/25/23 13:[address]: Karthikeyan Cordova DEPT: Surgical Specimen RECD BY: Suyapa Ortega ENTERED: 04/25/23 13:33 SP TYPE: Bowel OTHR DR: Chastity Amor APRN Tissues: 1 - BIOPSY BOWEL Procedures: GROSS AND MICRO LEVEL 4 Comments: [id number]
[2023-04-25 13:25] VITALS: BP 92/66; PULSE 87; RESP 20; TEMP 36.4; O2SAT 98
--- NOTE | 2023-04-25 13:35 | W.ANESPOSTOP ---
Postoperative Evaluation Date, Time and Location Date Performed: 04/25/23 Time Performed: 13:35 Patient Location: Day Surgery Unit Vital Signs Most Recent Imported Vital Signs: Most Recent Vital Signs Temp Pulse Resp BP Pulse Ox 36.4 C L 87 20 92/66 L 98 04/25/23 13:25 04/25/23 13:25 04/25/23 13:25 04/25/23 13:25 04/25/23 13:25 Pain Score Most Recent Pain Score: Most Recent Pain Score Pain Level 0 04/25/23 11:36 Assessment Mental Status: Awake (Alert & Oriented to Patient Baseline) Airway and Respiratory Function: Patent airway with normal (patient baseline) respiratory exam Cardiovascular Function: Hemodynamically Stable Hydration Status: Adequately Hydrated Nausea & Vomiting: No Nausea or Vomiting Pain: Pt. Denies Any Pain Peripheral Nerve Block: Patient did not receive a nerve block
[2023-04-25 14:00] VITALS: BP 104/73; PULSE 76; RESP 16; TEMP 37; O2SAT 99
== END 2023-04-25 14:09 | disposition home or self-care (01) ==
PROVIDERS: PCP Nurse Practitioner; Visit Provider Surgery
PROC: 0DJD8ZZ Inspection of Lower Intestinal Tract, Via Natural or Artificial Opening Endoscopic (ICD-10-PCS; CPT 45378; principal; 2023-04-25 12:45)
DX: R19.7 Diarrhea, unspecified (principal); K52.0 Gastroenteritis and colitis due to radiation; C67.9 Malignant neoplasm of bladder, unspecified; Z87.891 Personal history of nicotine dependence
CPT/HCPCS: 45380; 88305; J2001

== ENCOUNTER → 2023-05-02 00:44 | Outpatient (CLI) | payer MEDICARE, SELFPAY ==
--- NOTE | 2023-05-02 | DI.CT_ITS ---
Exam(s) CT CHEST/ABD/PEL W EXAM: CT CHEST/ABD/PEL W CLINICAL HISTORY: BLADDER CANCER C67.9 POST CHEMO ASSESS RESPONSE. TECHNIQUE: Imaging Protocol: Axial computed tomography images with coronal and sagittal reformatted images were created and reviewed CONTRAST MATERIAL: Intravenous: Omnipaque 350 Contrast volume:100 ml Oral: yes COMPARISON: CT CT ABDOMEN PELVIS WO/W from 08/30/[address] ABDOMEN PELVIS W from 02/26/2023 FINDINGS: CHEST: Thyroid is enlarged with multiple nodules. Previously evaluated by ultrasound. Tracheobronchial tree: Patent where visualized. Pulmonary parenchyma: No consolidation or dominant measurable mass. No suspicious pulmonary nodules. Pleura: No effusion or pneumothorax. Lymph nodes: Within normal limits. Aorta: Thoracic portion non-dilated. Heart: No pericardial effusion. Coronary artery calcifications. Pulmonary arteries: Well opacified. No emboli. Bones: Unremarkable for age. No lytic or blastic lesions.No compression fractures. Soft tissues: Unremarkable. ABDOMEN and PELVIS: Liver: Normal density. No measurable mass. Gallbladder and biliary tract: No evidence of stones or wall thickening. No biliary dilatation. Pancreas: Normal density, no abnormal calcifications or inflammatory process. Spleen: Normal. Kidneys: Normal size, contour and axis. No radiodense stones hip. No obstructive uropathy. No suspic ious masses seen. Adrenal glands: No masses seen. Aorta: Abdominal portion non-dilated. Lymph nodes: Within normal limits. Soft tissues: Unremarkable. Bladder: Mild diffuse wall thickening. Focal thickening and mild contrast enhancement at the posteri or superior left side of the bladder.. This is the location of the prior mass. Bowel: Bowel wall thickening again noted involving ileum directly superior to the bladder. No eviden ce of fistula. Some improvement from prior. No obstruction . Extent diverticulosis. Appendix philippe l. Large duodenal diverticulum. Peritoneal cavity: No ascites. No focal collection. No mesenteric inflammatory response. Bones: Unremarkable for age. Reproductive organs: Within normal limits. IMPRESSION: No evidence of metastatic disease in the chest, abdomen or pelvis. Diffuse bladder wall thickening with focal area of thickening and mild enhancement in the posterior s uperior left side of the bladder. Improvement but persistent wall thickening of loops of ileum superior to the bladder. RADIATION DOSE DELIVERED: !Error Total DLP DATA REPOSITORY: All CT scans at this facility are submitted to the National Radiology Data Registry (NRDR) Dose Index Registry (DIR) with the [employer] (ACR). RADIATION OPTIMIZATION: All CT scans at this facility use at least one of these dose optimization te chniques: automated exposure control; mA and/or kV adjustment per patient size (includes targeted exa ms where dose is matched to clinical indication); or iterative reconstruction.
[2023-05-02] MEDS: Barium Sulfate 2% W/V-Berry Smoothie 450 ML BTL 900 ML PO (07:59)
[2023-05-02 08:14] LABS: Absolute Basophil Count 0.01 10^3/uL (0.0-0.2); Absolute Lymphocyte Count 0.57 10^3/uL (1.2-3.4); Absolute Monocyte Count 0.43 10^3/uL (0.1-0.8); Absolute Neutrophil Count 2.18 10^3/uL (1.2-6.7); Basophils % 0.3; HCT 36.9 % (40.0-50.0); Lymphocytes % 17.3; MCHC 32.5 % (32.0-36.0); MCV 92 fL (80-95); MPV 9.3 fL (8.0-11.0); Monocytes % 13.1; Neutrophils % 66.3; Platelet Count 230 10^3/uL (130-400); RDW 12.6 % (11.8-14.1); RDW-SD 42.9 fL; WBC 3.29 10^3/uL (4.4-10.8)
[2023-05-02 08:30] LABS: ALT 26 U/L (16-63); AST 19 U/L (15-37); Alkaline Phosphatase 80 U/L (46-116); Anion Gap 5.4 mmol/L (3-11); BUN 17 mg/dL (7-18); Bilirubin, Total 0.6 mg/dL (0.2-1.0); CO2 29.6 mmol/L (21.0-32.0); CREATININE 0.9 mg/dL (0.70-1.30); Calcium 9.1 mg/dL (8.5-10.1); Chloride 105 mmol/L (98-107); Estimated GFR 92.45 (mL/min/1.73m2); Glucose 102 mg/dL (74-106); Magnesium 1.8 mg/dL (1.8-2.4); Sodium 140 mmol/L (136-145); Total Protein 6.5 g/dL (6.4-8.2)
[2023-05-02] MEDS: Normal Saline - Diluent 50 ML VIAL IJ (10:26)
[2023-05-02] MEDS: Omnipaque 350 MG/ML 500 ML BTL-Imaging package 100 ML IJ (10:30)
== END ==
PROVIDERS: Internal Medicine; PCP Nurse Practitioner; Visit Provider Radiology Radiation Oncology
DX: R56.9 Unspecified convulsions (principal); C67.9 Malignant neoplasm of bladder, unspecified
CPT/HCPCS: 74177; 80053; 71260; 83735; 85025

== ENCOUNTER 2023-05-26 05:58 | Day surgery (SDC) | payer MEDICARE, SELFPAY ==
[2023-05-26 06:26] VITALS: BP 113/72; PULSE 86; RESP 16; TEMP 36; O2SAT 99
[2023-05-26] MEDS: Ciprofloxacin 500 MG TAB PO (06:34)
[2023-05-26] MEDS: Lactated Ringers 1,000 ML 80 ML IV (06:44)
--- NOTE | 2023-05-26 07:03 | ANES.PREOP_ITS ---
General Info Date of Service Date Performed: 05/26/23 Height: 6 ft 3 in Weight: 74.8 kg Body Mass Index (BMI): 20.6 Surgical Procedure: Operation Date: 05/26/23 07:40 Proposed Procedure Side Surgeon p Cystoscopy, Possible Transurethral Resection Bladder Tumor Francisco J Harris MD Meds Allergies and Home Medications Allergies Allergy/AdvReac Type Severity Reaction Status Date / Time Penicillins Allergy Unknown Verified 05/23/23 11:07 Home Medication Medication Instructions Recorded ztqlgzf-paxqjhzikjywb-vvafbjin 250 1 tab PO DIRECTED 11/14/22 mg-250 mg-65 mg tablet (Excedrin Migraine) Current Visit Medications: Current Medications Generic Name Dose Route Start Last Admin Trade Name Freq PRN Reason Stop Dose Admin Ciprofloxacin HCl 500 mg 05/26/23 06:00 05/26/23 06:34 Ciprofloxacin 500 Mg Tab PO 05/26/23 16:00 500 mg PREOP RAFFY Administration Ringer's Solution 1,000 mls @ 80 mls/hr 05/26/23 06:00 05/26/23 06:44 IV 06/22/23 23:59 80 mls/hr INFUSION RAFFY Administration IV Miscellaneous Supplies 1 each 05/26/23 06:00 Iv Access IV 06/22/23 23:59 DIRECTED RAFFY Sodium Chloride 0 ml 05/26/23 06:00 Normal Saline Flush 10 Ml Syr IV 06/22/23 23:59 PRN PRN Sodium Chloride 0 ml 05/26/23 06:00 Normal Saline 10 Ml Vial IJ 06/22/23 23:59 DIRECTED PRN Sterile Water 0 ml 05/26/23 06:00 Water,Injection,Sterile 10 Ml Vial IJ 06/22/23 23:59 DIRECTED PRN PFSH Active Problems Active Problems: Problem Status Onset Code Diarrhea R19.7 Hematochezia K92.1 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 History of insertion of tunneled central venous catheter (CVC) with port Z98.890 Hypomagnesemia ~11/2022 E83.42 Bladder cancer C67.9 Bladder mass N32.89 Corns and callosities L84 Surgical History Surgical History History of colonoscopy (~03/2023) path sent Port-A-Cath in place (~10/2022) Removed History of transurethral resection of bladder tumor (TURBT) Last chemo/radiation tx per pt was 01/07/23 Hx of cystoscopy Tobacco Smoking/Tobacco Use Status: Former Tobacco Use Passive smoking exposure: No Second hand exposure: No Alcohol Alcohol Intake: current Alcohol intake frequency: a few times a month Alcohol type: wine Substance Use Substance use: Occasionally Substance use type: marijuana Details: 2x month if that Vital Signs and Lab Results Vital Signs Most Recent Vital Signs in EMR: Most Recent Vital Signs Temp Pulse Resp BP Pulse Ox 36 C L 86 16 113/72 99 05/26/23 06:26 05/26/23 06:26 05/26/23 06:26 05/26/23 06:26 05/26/23 06:26 Lab Results Blood Type / Crossmatch: No Data to Display Complete Blood Count: White Blood Count 3.29 10^3/uL (4.4-10.8) L 05/02/23 08:00 Red Blood Count 4.00 10^6/uL (4.36-5.78) L 05/02/23 08:00 Hemoglobin 12.0 g/dL (13.5-17.5) L 05/02/23 08:00 Hematocrit 36.9 % (40.0-50.0) L 05/02/23 08:00 Platelet Count 230 10^3/uL (130-400) 05/02/23 08:00 Complete Metabolic Panel: Sodium 140 mmol/L (136-145) 05/02/23 08:00 Potassium 4.0 mmol/L (3.5-5.1) 05/02/23 08:00 Chloride 105 mmol/L (98-107) 05/02/23 08:00 Carbon Dioxide 29.6 mmol/L (21.0-32.0) 05/02/23 08:00 BUN 17 mg/dL (7-18) 05/02/23 08:00 Creatinine 0.9 mg/dL (0.70-1.30) 05/02/23 08:00 Est GFR (CKD-EPI 2020) 92.45 (mL/min/1.73m2) 05/02/23 08:00 Magnesium 1.8 mg/dL (1.8-2.4) 05/02/23 08:00 Calcium 9.1 mg/dL (8.5-10.1) 05/02/23 08:00 Albumin 3.0 g/dL (3.4-5.0) L 05/02/23 08:00 Glucose 102 mg/dL (74-106) 05/02/23 08:00 Liver Function Panel: Alanine Aminotransferase (ALT/SGPT) 26 U/L (16-63) 05/02/23 08: 00 Aspartate Amino Transf (AST/SGOT) 19 U/L (15-37) 05/02/23 08:00 Coagulation Panel: No Data to Display Cardiac Panel: No Data to Display Arterial Blood Gas: No Data to Display Venous Blood Gas: No Data to Display Pancreas Panel: No Data to Display Thyroid Panel: No Data to Display Infectious Disease: No Data to Display Blood Cultures: No Data to Display Toxicology Panel: No Data to Display Anesthesia Assessment and Plan Anesthesia History Personal History: No History of Anesthesia Complications Family History: No Family History of Anesthesia Complications Exercise Tolerance Exercise Tolerance: Metabolic Equivalents>4 Pertinent Negatives Pertinent Negatives: No Symptoms of GERD, No Major Cardiovascular Symptoms or Complaints and No Major Pulmonary Symptoms or Complaints Cardiac & Pulmonary Exam Cardiac Exam: Normal S1/S2 Heart Sounds Pulmonary Exam: Clear Bilateral Breath Sounds Implantable Cardiac Device Does patient have a Pacemaker or an ICD?: No Airway Exam Known Difficult Airway: No Mallampati Class: 2 Mouth Opening: Normal (> 3cm) Thyromental Distance: Greater than 3 cm Neck Range of Motion: Full ROM Neck Circumference: Normal Teeth Condition: Normal Dentition and Generalized Poor Dentition ASA Classification ASA Score: ASA 2 Emergency Case?: No NPO Status NPO Status: NPO Clears >2 hours, Solids >8 hours Anesthesia Plan Resuscitation Status: Full Code Anesthesia Technique: General Anesthesia Airway Planned: Natural Airway Monitors Used: Standard Monitors
--- NOTE | 2023-05-26 07:05 | HPE_ITS ---
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 He has been treated with Tri modal therapy. He presents for cystoscopy and possible TUR bladder tumor as part of his scheduled follow-up. He has no gross hematuria. Review of Systems Narrative: No fevers or chills No vision change or dysphasia No diabetes or thyroid dysfunction No shortness of breath, cough or hemoptysis No chest pain or palpitations Radiation enteritis markedly improved over last 3 weeks. No hepatitis, ulcers, jaundice No seizures, strokes or peripheral neuropathy No bleeding disorders No gout PFSH All Active Problems Diarrhea (Acute) Hematochezia (Acute) Radiation enteritis (Acute) History of insertion of tunneled central venous catheter (CVC) with port (Acute) Hypomagnesemia (Acute ~11/2022) [facility] Hem/Onc - being treated Bladder cancer (Acute) 10/16/22 F/u with Radiology 10/23/22 [facility] Rad/Onc - pt will be proceeding with ChemoRT 11/26/22 F/U St Hem/Onc 12/03/22 f/u [facility] hem/onc Bladder mass (Acute) Corns and callosities (Acute) Surgical History History of colonoscopy (~03/2023) path sent Port-A-Cath in place (~10/2022) Removed History of transurethral resection of bladder tumor (TURBT) Last chemo/radiation tx per pt was 01/07/23 Hx of cystoscopy Family History Sister Breast cancer Social History Smoking/Tobacco Use Status: Former Tobacco Use Quit Date: 04/28/89 Tobacco: How many years used: 5 Second Hand Exposure: No Smoking risk assessment performed?: Yes Alcohol Intake: current Alcohol Intake frequency: a few times a month Alcohol type: wine Counseling given: No Drug use: Occasionally Substance use type: marijuana Details: 2x month if that Adopted: No Caregiver/Support person: No Foster care: No Household members: significant other Housing: house Number of Children: 0 Communication Needs: None Education Level: college Details: associate's degree Do you need help understanding health information?: Rarely current occupation: musician Pets and animals: Yes Pets and animals: dog(s) Do you think of yourself as: straight/heterosexual Current gender identity: male What is your relationship status?: How often do you talk on the phone with friends or family?: twice per week How often do you get together with friends or relatives?: twice per week Do you belong to any clubs or organized social groups?: no Panel score (0-1 are the most socially isolated patients): 1 What type of physical activity do you participate in: walking Duration: 15-30 minutes/day Frequency: 3-4 times per week Jessica/Yarsanism: None Special jessica needs: No Seatbelt use: always Drive intox or ride w/intox transit mixer driver: No Working smoke detector in home: Yes Carbon monox detector in home: Yes Do you feel safe at home: Yes Additional Social history: unable to assess privately Meds Allergies and Home Medications Allergies Allergy/AdvReac Type Severity Reaction Status Date / Time Penicillins Allergy Unknown Verified 05/26/23 07:17 Home Medications Medication Instructions Recorded Confirmed Type vsctokr-udpgjoawnaudj-kbioxelo 250 1 tab PO DIRECTED 11/14/22 05/26/23 History mg-250 mg-65 mg tablet (Excedrin Migraine) Exam Const General: cooperative Neck Neck: supple Resp Auscultation: clear to auscultation bilaterally Cardio Rate: regular rate Rhythm: regular rhythm GI Palpation: soft and no masses Neuro General: patient alert, patient awake and patient oriented x3 Results Last Vital Signs Temp 36 C L 05/26/23 06:26 Pulse 86 05/26/23 06:26 Resp 16 05/26/23 06:26 BP 113/72 05/26/23 06:26 Pulse Ox 99 05/26/23 06:26 Time Spent Time spent with Patient: <40 minutes Time was spent: other
[2023-05-26 07:06] VITALS: BMI 20.6
[2023-05-26] MEDS: Lidocaine 2% Jelly 11 ML SYR (07:53)
--- NOTE | 2023-05-26 07:56 | PAPNONF_PTH ---
PATIENT: Shadi Castaneda LOC: [facility] U#:[id number] AGE/SX: 67/M ROOM: RE05/26/[address]: Francisco J Harris MD : 1955 BED: DIS: 05/26/2023 SPEC #: [id number] RECD: 05/26/23 13:16 STATUS: GISELLE REBoris #: [id number] MED: 05/26/23 07:[address]: Francisco J Harris DEPT: [facility] Cytology RECD BY: Suyapa Ortega ENTERED: 05/26/23 13:16 SP TYPE: JENNIFER PALACIOS DR: Chastity Amor APRN Tissues: 1 - BODY FLUID CYTO(SPUTUM/URINE)[facility] Procedures: BODY FLUID CYTO(URINE/SPUTUM) Comments: [id number] (TV=60 ml, 30 ml CYTOLYT ADDED) (REFRIFERATED)
--- NOTE | 2023-05-26 07:57 | BLADDER_PTH ---
PATIENT: Shadi Castaneda LOC: [facility] U#:[id number] AGE/SX: 67/M ROOM: RE05/26/[address]: Francisco J Harris MD : 1955 BED: DIS: 05/26/2023 SPEC #: [id number] RECD: 05/26/23 12:34 STATUS: GISELLE RE #: [id number] MED: 05/26/23 07:[address]: Francisco J Harris DEPT: Surgical Specimen RECD BY: Suyapa Ortega ENTERED: 05/26/23 12:35 SP TYPE: Bladder OTHR DR: Chastity Amor APRN Tissues: 1 - BLADDER BIOPSY Procedures: GROSS AND MICRO LEVEL 4 IMMUNOPEROXIDASE STAIN Comments: [id number]
--- NOTE | 2023-05-26 08:01 | W.PM.DSUDISC ---
Date of service: 05/26/23 Time of Service: 08:01 Discharge Plan Disposition Patient Disposition: Home Condition: Stable Discharge Details Reason For Visit: bladder cancer Attending Provider: Francisco J Harris Primary Care Provider: Chastity Amor Home Meds and New Rx's Prescriptions: No Action Excedrin Migraine 250-250-65 mg Tablet 1 tab PO DIRECTED Discharge Instructions Additional Instructions: followup 1 to 2 weeks for pathology results Activity:: Activity as Tolerated Shower/Bathe:: 24 hours Diet:: As Tolerated Discharge Orders Discharge Orders: Discharge Order (Routine); Ordered 05/26/23 Ordered By: Francisco J Harris DS: Diagnosis Discharge Diagnosis (1) Bladder cancer: Status: Acute
--- NOTE | 2023-05-26 08:04 | W.PM.OP ---
Date of service: 05/26/23 Time of Service: 08:04 Operative Note Operative Note DATE OF PROCEDURE: 05/26/23 PRE-OP DIAGNOSIS: Bladder cancer POST-OP DIAGNOSIS: same PROCEDURE: cystoscopy with bladder biopsy SURGEON: Francisco J Harris ANESTHESIA TYPE: Local By Surgeon and General:No Airway Refer to Anesthesia Record ESTIMATED BLOOD LOSS: 5 PATHOLOGY: other (1. urine for cytology 2. 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 He had undergone Tri modal therapy with transurethral resection, external beam radiation and chemotherapy. He presents for surveillance cystoscopy. Findings: Scar on the left posterior bladder wall with no obvious papillary or nodular lesions Procedure Description: The patient was given preoperative antibiotics and brought to the operating room on 05/26/2023. After successful induction of general anesthesia without intubation, he was placed in the dorsal lithotomy position. His genitalia was prepped and draped. 2% Xylocaine jelly was instilled into the urethra to act as a local anesthetic. A 22 Setswana rigid cystoscope was then passed through the urethra into the bladder. The bladder was drained and clear urine was collected. The urine was sent to the lab for cytology examination. The bladder was then inspected using both the 30 and 70 degree lens. The pendulous, bulbar and membranous urethra's appeared normal with no strictures. The prostatic urethra showed some lateral lobe enlargement but no papillary lesions on the prostatic mucosa. The bladder neck was entered and the bladder mucosa was inspected. Both ureteral orifices appeared normal with no blood coming from either side. On the left posterior bladder wall, there was a large necrotic appearing scar with some mild erythema surrounding it. No papillary or nodular lesions were seen. A cold cup biopsy of the surrounding bladder mucosa was taken and sent to pathology for permanent section. The findings were confirmed on reinspection of the bladder with a 70 degree lens. The bladder was emptied. The cystoscope was withdrawn. The patient tolerated this procedure well with no complications. He was taken back to the day surgery unit.
[2023-05-26 08:10] VITALS: BP 105/73; PULSE 87; RESP 16; TEMP 36.3; O2SAT 97
--- NOTE | 2023-05-26 08:27 | W.ANESPOSTOP ---
Postoperative Evaluation Date, Time and Location Date Performed: 05/26/23 Time Performed: 08:27 Patient Location: Day Surgery Unit Vital Signs Most Recent Imported Vital Signs: Most Recent Vital Signs Temp Pulse Resp BP Pulse Ox 36.3 C L 87 16 105/73 97 05/26/23 08:10 05/26/23 08:10 05/26/23 08:10 05/26/23 08:10 05/26/23 08:10 Pain Score Most Recent Pain Score: Most Recent Pain Score Pain Level 0 05/26/23 08:10 Assessment Mental Status: Awake (Alert & Oriented to Patient Baseline) Airway and Respiratory Function: Patent airway with normal (patient baseline) respiratory exam Cardiovascular Function: Hemodynamically Stable Hydration Status: Adequately Hydrated Nausea & Vomiting: No Nausea or Vomiting Pain: Pt. Denies Any Pain Peripheral Nerve Block: Patient did not receive a nerve block Postoperative Comments:: Discussed potential for sore throat secondary to oral suctioning during procedure.
[2023-05-26] MEDS: Phenazopyridine 200 MG TAB PO (08:43)
[2023-05-26 08:46] VITALS: BP 112/79; PULSE 74; RESP 16; TEMP 36.3; O2SAT 100
== END 2023-05-26 09:16 | disposition home or self-care (01) ==
PROVIDERS: PCP Nurse Practitioner; Visit Provider Urology
PROC: 0TBB8ZZ Excision of Bladder, Via Natural or Artificial Opening Endoscopic (ICD-10-PCS; CPT 52204; principal; 2023-05-26 07:30)
DX: C67.9 Malignant neoplasm of bladder, unspecified (principal); N30.20 Other chronic cystitis without hematuria
CPT/HCPCS: 52204; 88305; 88104; 88361; J1100; J1885; J2001; J2250; J2405; J2704

== ENCOUNTER → 2023-06-13 10:41 | Outpatient (BNVA) | payer MEDICARE, SELFPAY | PROVIDERS: PCP Nurse Practitioner; Referring Provider Nurse Practitioner; Visit Provider Urology | DX: C67.9 Malignant neoplasm of bladder, unspecified (principal) | CPT/HCPCS: 99213 ==

== ENCOUNTER → 2023-10-13 04:31 | Outpatient (CLI) | payer MEDICARE, SELFPAY ==
[2023-10-13 08:38] LABS: Bilirubin Negative (Negative); Blood Negative (Negative); Clarity Clear (Clear); Glucose Negative (Negative); Ketones Negative (Negative); Leukocyte Esterase Negative (Negative); Nitrite Negative (Negative); Specific Gravity 1.025 (1.005-1.025); Urobilinogen 0.2 mg/dL (Up to 0.2)
[2023-10-13 09:25] LABS: Calculated LDL 133 mg/dL (<100); Cholesterol 222 mg/dL (<200); Estimated GFR 80.97 (mL/min/1.73m2); HDL Cholesterol 76 mg/dL (40-60); Triglyceride 65 mg/dL (<150)
[2023-10-13] MEDS: Normal Saline - Diluent 50 ML VIAL IJ (10:25)
[2023-10-13] MEDS: Omnipaque 350 MG/ML 500 ML BTL-Imaging package 100 ML IJ (10:26)
--- NOTE | 2023-10-13 10:37 | DI.CT_ITS ---
Exam(s) CT CHEST/ABD/PEL W EXAM: CT CHEST/ABD/PEL W CLINICAL HISTORY: ? progression/mets,BLADDER CA,C67.9. TECHNIQUE: Imaging Protocol: Axial computed tomography images with coronal and sagittal reformatted images were created and reviewed CONTRAST MATERIAL: Intravenous: Omnipaque 350 Contrast volume:100 ml Oral: yes / COMPARISON: CT CT CHEST/ABD/PEL W from 05/02/2023 FINDINGS: CHEST: Small hiatal hernia. Tracheobronchial tree: Patent. Pulmonary parenchyma: No consolidation or dominant measurable mass. Pleura: No effusion or pneumothorax. Lymph nodes: Within normal limits. Aorta: Thoracic portion non-dilated. Heart: No pericardial effusion. Artery calcifications. Bones: Unremarkable for age. No lytic or blastic lesions.No compression fractures. Degenerative julian ges in the spine. Soft tissues: Unremarkable. ABDOMEN and PELVIS: Liver: Normal density. No measurable mass. Gallbladder and biliary tract: No evidence of stones or wall thickening. No biliary dilatation. Pancreas: Normal density, no abnormal calcifications or inflammatory process. Spleen: Normal. Kidneys: Normal size, contour and axis. No radiodense stones. No obstructive uropathy. No suspicious masses seen. Adrenal glands: No masses seen. Aorta: Abdominal portion non-dilated. Lymph nodes: Within normal limits. Soft tissues: Unremarkable. Bladder: Mild wall thickening, greater on the left. Calcification is now seen on the superior postero lateral left bladder wall. Bowel: Severe diverticulosis. Wall thickening again present within the distal ileum, above the level of the bladder. Or appearance to prior. No evidence of fistula. Appendix normal. Peritoneal cavity: No ascites. No focal collection. No mesenteric inflammatory response. Bones: Unremarkable for age. Reproductive organs: Within normal limits. IMPRESSION: No ac evidence of metastatic disease in the chest, abdomen or pelvis.. Bladder wall thickening. Small focal area of calcification now seen. Stable area of wall thickening of a loop small bowel above level of bladder. RADIATION DOSE DELIVERED: Total DLP DATA REPOSITORY: All CT scans at this facility are submitted to the National Radiology Data Registry (NRDR) Dose Index Registry (DIR) with the [employer] (ACR). RADIATION OPTIMIZATION: All CT scans at this facility use at least one of these dose optimization te chniques: automated exposure control; mA and/or kV adjustment per patient size (includes targeted exa ms where dose is matched to clinical indication); or iterative reconstruction.
== END ==
PROVIDERS: PCP Nurse Practitioner; Visit Provider Urology
DX: C67.8 Malignant neoplasm of overlapping sites of bladder (principal); E78.5 Hyperlipidemia, unspecified; Z13.220 Encounter for screening for lipoid disorders
CPT/HCPCS: 74177; 80061; 71260; 81003; 82565

== ENCOUNTER 2023-10-16 06:13 | Day surgery (SDC) | payer MEDICARE, SELFPAY ==
--- NOTE | 2023-10-16 06:10 | W.ANESPRE ---
General Info Date of Service Date Performed: 10/16/23 Height: 6 ft 3 in Weight: 79.379 kg Body Mass Index (BMI): 21.9 Surgical Procedure: Operation Date: 10/16/23 07:40 Proposed Procedure Side Surgeon p Cystoscopy, Possible Transurethral Resection Bladder Tumor Francisco J Harris MD Meds Allergies and Home Medications Allergies Allergy/AdvReac Type Severity Reaction Status Date / Time Penicillins Allergy Unknown Other (See Verified 10/16/23 06:26 Comment) Home Medication Medication Instructions Recorded lmlhsdd-ciygcpqnflmfo-xdasgffx 250 1 tab PO DIRECTED 11/14/22 mg-250 mg-65 mg tablet (Excedrin Migraine) sildenafil 100 mg tablet (Viagra) 100 mg PO DAILY PRN sexual 05/26/23 activity #10 tabs Current Visit Medications: Current Medications Generic Name Dose Route Start Last Admin Trade Name Freq PRN Reason Stop Dose Admin Ciprofloxacin HCl 500 mg 10/16/23 06:00 Ciprofloxacin 500 Mg Tab PO 10/16/23 16:00 PREOP RAFFY Ringer's Solution 1,000 mls @ 0 mls/hr 10/16/23 06:00 IV 11/14/23 23:59 INFUSION RAFFY IV Miscellaneous Supplies 1 each 10/16/23 06:00 Iv Access IV 11/14/23 23:59 DIRECTED RAFFY Sodium Chloride 0 ml 10/16/23 06:00 Normal Saline Flush 10 Ml Syr IV 11/14/23 23:59 PRN PRN Sodium Chloride 0 ml 10/16/23 06:00 Normal Saline 10 Ml Vial IJ 11/14/23 23:59 DIRECTED PRN Sterile Water 0 ml 10/16/23 06:00 Water,Injection,Sterile 10 Ml Vial IJ 11/14/23 23:59 DIRECTED PRN PFSH Active Problems Active Problems: Problem Status Onset Code Diarrhea R19.7 Hematochezia K92.1 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 History of insertion of tunneled central venous catheter (CVC) with port Z98.890 Hypomagnesemia ~11/2022 E83.42 Bladder cancer C67.9 Corns and callosities L84 Medical History Medical History Bladder mass Surgical History Surgical History History of colonoscopy (~03/2023) path sent Port-A-Cath in place (~10/2022) Removed History of transurethral resection of bladder tumor (TURBT) Last chemo/radiation tx per pt was 01/07/23 Hx of cystoscopy Tobacco Smoking/Tobacco Use Status: Former Tobacco Use Passive smoking exposure: No Second hand exposure: No Alcohol Alcohol Intake: current Alcohol intake frequency: a few times a month Alcohol type: wine Substance Use Substance use: Occasionally Substance use type: marijuana Vital Signs and Lab Results Vital Signs Most Recent Vital Signs in EMR: Temp Pulse Resp BP Pulse Ox 36.4 C L 75 16 99/83 L 97 10/16/23 06:27 10/16/23 06:27 10/16/23 06:27 10/16/23 06:27 10/16/23 06:27 Lab Results Blood Type / Crossmatch: No Data to Display Complete Blood Count: No Data to Display Complete Metabolic Panel: Creatinine 1.0 mg/dL (0.70-1.30) 10/13/23 09:00 Est GFR (CKD-EPI 2020) 80.97 (mL/min/1.73m2) 10/13/23 09:00 Liver Function Panel: No Data to Display Coagulation Panel: No Data to Display Cardiac Panel: No Data to Display Arterial Blood Gas: No Data to Display Venous Blood Gas: No Data to Display Pancreas Panel: No Data to Display Thyroid Panel: No Data to Display Infectious Disease: No Data to Display Blood Cultures: No Data to Display Toxicology Panel: No Data to Display Anesthesia Assessment and Plan Anesthesia History Personal History: No History of Anesthesia Complications Family History: No Family History of Anesthesia Complications Exercise Tolerance Exercise Tolerance: Metabolic Equivalents>4 Cardiac & Pulmonary Exam Cardiac Exam: Normal S1/S2 Heart Sounds Pulmonary Exam: Clear Bilateral Breath Sounds Implantable Cardiac Device Does patient have a Pacemaker or an ICD?: No Airway Exam Known Difficult Airway: No Mallampati Class: 2 Mouth Opening: Normal (> 3cm) Thyromental Distance: Greater than 3 cm Neck Range of Motion: Full ROM Neck Circumference: Normal Teeth Condition: Normal Dentition and Generalized Poor Dentition ASA Classification ASA Score: ASA 2 Emergency Case?: No NPO Status NPO Status: NPO Clears >2 hours, Solids >8 hours Anesthesia Plan Resuscitation Status: Full Code Anesthesia Technique: General Anesthesia Airway Planned: Natural Airway Monitors Used: Standard Monitors Preoperative Comments:: 67 yo male for TURBT. Denies major health history change. Sig PMHx: bladder CA (radiation, chemo), former smoker, occ cannabis, Previous Anes: - TURBT, prop, natural airway, no issues. - colo, prop, natural airway, no issues. - kofi cath, prop, LMA 4, no issues. - TURBT, prop, natural airway, angela.
[2023-10-16 06:27] VITALS: BP 99/83; PULSE 75; RESP 16; TEMP 36.4; O2SAT 97
[2023-10-16] MEDS: Ciprofloxacin 500 MG TAB PO (06:38)
[2023-10-16 06:43] VITALS: BMI 21.9
[2023-10-16] MEDS: Lactated Ringers 1,000 ML 80 ML IV (06:48)
--- NOTE | 2023-10-16 06:49 | W.PM.HP.N ---
Date of service: 10/16/23 Time of Service: 06:49 Assessment and Plan Assessment and plan (1) Bladder cancer: Status: Acute Assessment and plan: For cystoscopy and possible transurethral resection of bladder tumor. We will obtain a urine cytology will we passed the cystoscope and. 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 He elected to try modal therapy with chemoradiation and TUR bladder tumor rather than a radical cystectomy and systemic chemotherapy. He presents for surveillance cystoscopy. He has no gross hematuria. He has no suprapubic pain. Review of Systems Narrative: He has gained some of his weight back. No fevers or chills No vision change or dysphasia No diabetes or thyroid dysfunction No shortness of breath, cough or hemoptysis No chest pain or palpitations Radiation enteritis which has improved with time. No hepatitis, ulcers or jaundice No seizures, strokes or peripheral neuropathy No bleeding disorders No gout PFSH All Active Problems Diarrhea (Acute) Hematochezia (Acute) Radiation enteritis (Acute) History of insertion of tunneled central venous catheter (CVC) with port (Acute) Hypomagnesemia (Acute ~11/2022) [facility] Hem/Onc - being treated Bladder cancer (Acute) 10/16/22 F/u with Radiology 10/23/22 [facility] Rad/Onc - pt will be proceeding with ChemoRT 11/26/22 F/U [facility] Hem/Onc 12/03/22 f/u [facility] hem/onc Corns and callosities (Acute) Medical History Bladder mass Surgical History History of colonoscopy (~03/2023) path sent Port-A-Cath in place (~10/2022) Removed History of transurethral resection of bladder tumor (TURBT) Last chemo/radiation tx per pt was 01/07/23 Hx of cystoscopy Family History Sister Breast cancer Social History Smoking/Tobacco Use Status: Former Tobacco Use Quit Date: 04/28/89 Tobacco: How many years used: 5 Second Hand Exposure: No Smoking risk assessment performed?: Yes Alcohol Intake: current Alcohol Intake frequency: a few times a month Alcohol type: wine Counseling given: No Drug use: Occasionally Substance use type: marijuana Adopted: No Caregiver/Support person: No Foster care: No Household members: significant other Housing: house Number of Children: 0 Communication Needs: None Education Level: college Details: associate's degree Do you need help understanding health information?: Rarely current occupation: musician Pets and animals: Yes Pets and animals: dog(s) Do you think of yourself as: straight/heterosexual Current gender identity: male What is your relationship status?: How often do you talk on the phone with friends or family?: twice per week How often do you get together with friends or relatives?: twice per week Do you belong to any clubs or organized social groups?: no Panel score (0-1 are the most socially isolated patients): 1 What type of physical activity do you participate in: walking Duration: 15-30 minutes/day Frequency: 3-4 times per week Jessica/Restorationism: None Special jessica needs: No Seatbelt use: always Drive intox or ride w/intox milk delivery driver: No Working smoke detector in home: Yes Carbon monox detector in home: Yes Do you feel safe at home: Yes Do you feel safe in your relationship?: Yes Meds Allergies and Home Medications Allergies Allergy/AdvReac Type Severity Reaction Status Date / Time Penicillins Allergy Unknown Other (See Verified 10/16/23 06:26 Comment) Home Medications Medication Instructions Recorded Confirmed Type jjfrmar-aauihdbrzdqnz-yajiqxdn 250 1 tab PO DIRECTED 11/14/22 10/15/23 History mg-250 mg-65 mg tablet (Excedrin Migraine) sildenafil 100 mg tablet (Viagra) 100 mg PO DAILY PRN sexual 05/26/23 10/15/23 Rx activity #10 tabs Exam Narrative Exam Narrative: I reviewed his recent CT of the chest, abdomen and pelvis. There is no evidence of metastatic disease. Const General: cooperative and comfortable Neck Neck: supple Resp Effort & Inspection: normal respiratory effort Auscultation: clear to auscultation bilaterally Cardio Rate: regular rate Rhythm: regular rhythm GI Palpation: soft and no masses Neuro General: patient alert, patient awake and patient oriented x3 Results Last Vital Signs Temp 36.4 C L 10/16/23 06:27 Pulse 75 10/16/23 06:27 Resp 16 10/16/23 06:27 BP 99/83 L 10/16/23 06:27 Pulse Ox 97 10/16/23 06:27 Time Spent Time spent with Patient: <40 minutes Time was spent: other
[2023-10-16] MEDS: Lidocaine 2% Jelly 11 ML SYR (07:57)
--- NOTE | 2023-10-16 08:03 | PAPNONF_PTH ---
PATIENT: Shadi Castaneda LOC: [facility] U#:[id number] AGE/SX: 68/M ROOM: RE10/16/[address]: Francisco J Harris MD : 1955 BED: DIS: 10/16/2023 SPEC #: [id number] RECD: 10/16/23 13:17 STATUS: GISELLE REBoris #: [id number] EMD: 10/16/23 08:[address]: Francisco J Harris DEPT: [facility] Cytology RECD BY: Suyapa Ortega ENTERED: 10/16/23 13:17 SP TYPE: JENNIFER PALACIOS DR: Chastity Amor APRN Tissues: 1 - BODY FLUID CYTO(SPUTUM/URINE)[facility] Procedures: BODY FLUID CYTO(URINE/SPUTUM) Comments: [id number] (TOTAL VOLUME = 90 ml) (REFRIGERATED) (45 ml URINE & 30 ml CYTOLYT ADDED IN 2 CONTAINERS)
--- NOTE | 2023-10-16 08:04 | BLADDER_PTH ---
PATIENT: Shadi Castaneda LOC: [facility] U#:[id number] AGE/SX: 68/M ROOM: RE10/16/[address]: Francisco J Harris MD : 1955 BED: DIS: 10/16/2023 SPEC #: [id number] RECD: 10/16/23 13:29 STATUS: GISELLE REBoris #: [id number] MED: 10/16/23 08:[address]: Francisco J Harris DEPT: Surgical Specimen RECD BY: Suyapa Ortega ENTERED: 10/16/23 13:30 SP TYPE: Bladder OTHR DR: Chastity Amor APRN Tissues: 1 - BLADDER BIOPSY Procedures: GROSS AND MICRO LEVEL 4 IMMUNOPEROXIDASE STAIN Comments: [id number]
--- NOTE | 2023-10-16 08:12 | ROE_ITS ---
Date of service: 10/16/23 Time of Service: 08:12 Operative Note Operative Note DATE OF PROCEDURE: 10/16/23 PRE-OP DIAGNOSIS: Bladder cancer POST-OP DIAGNOSIS: same PROCEDURE: cystoscopy, bladder biopsy SURGEON: Francisco J Harris ANESTHESIA TYPE: Local By Surgeon and General:No Airway Refer to Anesthesia Record ESTIMATED BLOOD LOSS: 5 PATHOLOGY: other (1. urine cytology 2. bladder biopsy) COMPLICATIONS: None Patient was transported to: same day Patient's condition: stable Implants: none Indications: This is a 68-year-old gentleman who has a history of muscle invasive urothelial cell carcinoma of the bladder. He was treated with Tri modal therapy. He presents for surveillance cystoscopy. Findings: Ulceration on the bladder with necrotic tissue attached and erythema of the surrounding mucosa. No papillary or nodular tumor Procedure Description: The patient was brought to the operating room on 10/16/2023. He was given a dose of oral antibiotics. After successful induction of general anesthesia without intubation, he was placed in the dorsal lithotomy position. His genitalia was prepped with Betadine. The genitalia was draped. 2% Xylocaine jelly was instilled into the urethra. The 22 Gabonese rigid cystoscope was passed through the urethra into the bladder. The urethra and bladder were inspected using a 30 degree lens. The pendulous, bulbar and membranous urethra's appeared normal with no strictures. The prostatic urethra showed some lateral lobe enlargement but no papillary lesions along the prostatic mucosa. The bladder neck was entered and the bladder mucosa was inspected. The initial urine from the bladder was collected and sent to pathology lab for cytology examination. Both ureteral orifices appeared normal with no blood seen on either side. On the left posterior bladder wall, there was a ulcerated area with some necrotic tissue attached. The necrotic tissue was evacuated using a Justus syringe. Some stony debris was attached to the necrotic tissue I saw no papillary or nodular lesions, but some of the mucosa surrounding the ulceration was a bit rolled up and erythematous. I biopsied this area using a cold cup biopsy forceps. The biopsy was sent to pathology for permanent section. No active bleeding was seen from the biopsy site, so I chose not to cauterize. The bladder was emptied and the cystoscope was removed. The patient tolerated this procedure well with no complications. He was taken back to the day surgery unit in stable condition.
--- NOTE | 2023-10-16 08:13 | W.PM.DSUDISC ---
Date of service: 10/16/23 Time of Service: 08:13 Discharge Plan Disposition Patient Disposition: Home Discharge Details Attending Provider: Francisco J Harris Primary Care Provider: Chastity Amor Home Meds and New Rx's Prescriptions: No Action sildenafil [Viagra] 100 mg tablet 100 mg PO DAILY PRN (Reason: sexual activity) Qty: 10 12RF Rx Instructions: administer 30 minutes to 4 hours before activity Excedrin Migraine 250-250-65 mg Tablet 1 tab PO DIRECTED Discharge Instructions Additional Instructions: followup 1 to 2 weeks for pathology and cytology results Discharge Orders Discharge Orders: Discharge Order (Routine); Ordered 10/16/23 Ordered By: Francisco J Harris DS: Diagnosis Discharge Diagnosis (1) Bladder cancer: Status: Acute
[2023-10-16 08:16] VITALS: BP 106/66; PULSE 74; RESP 16; TEMP 36; O2SAT 97
--- NOTE | 2023-10-16 08:23 | W.ANESPOSTOP ---
Postoperative Evaluation Date, Time and Location Date Performed: 10/16/23 Time Performed: 08:23 Patient Location: Day Surgery Unit Vital Signs Most Recent Imported Vital Signs: Most Recent Vital Signs Temp Pulse Resp BP Pulse Ox 36.0 C L 74 16 106/66 97 10/16/23 08:16 10/16/23 08:16 10/16/23 08:16 10/16/23 08:16 10/16/23 08:16 Pain Score Most Recent Pain Score: Most Recent Pain Score Pain Level 0 10/16/23 08:16 Assessment Mental Status: Awake (Alert & Oriented to Patient Baseline) Airway and Respiratory Function: Patent airway with normal (patient baseline) respiratory exam Cardiovascular Function: Hemodynamically Stable Hydration Status: Adequately Hydrated Nausea & Vomiting: No Nausea or Vomiting Pain: Pain is tolerable per patient Peripheral Nerve Block: Patient did not receive a nerve block
[2023-10-16 08:49] VITALS: BP 111/77; PULSE 68; RESP 16; TEMP 36; O2SAT 99
== END 2023-10-16 09:17 | disposition home or self-care (01) ==
PROVIDERS: PCP Nurse Practitioner; Visit Provider Urology
PROC: 0TBB8ZZ Excision of Bladder, Via Natural or Artificial Opening Endoscopic (ICD-10-PCS; CPT 52204; principal; 2023-10-16 07:30)
DX: C67.9 Malignant neoplasm of bladder, unspecified (principal); N32.89 Other specified disorders of bladder; N21.0 Calculus in bladder
CPT/HCPCS: 52204; 88305; 88104; 88361; J1100; J2250; J2405; J2704

== ENCOUNTER → 2023-10-31 14:21 | Outpatient (BNVA) | payer MEDICARE, SELFPAY | PROVIDERS: PCP Nurse Practitioner; Referring Provider Nurse Practitioner; Visit Provider Urology | DX: C67.9 Malignant neoplasm of bladder, unspecified (principal) | CPT/HCPCS: 99214 ==

== ENCOUNTER 2023-12-10 17:36 | Outpatient (REF) | payer MEDICARE, SELFPAY ==
--- NOTE | 2023-12-10 10:15 | SKI_PTH ---
PATIENT: Shadi Castaneda LOC: [facility] U#:[id number] AGE/SX: 68/M ROOM: RE12/10/[address]: Chastity Amor APRN : 1955 BED: DIS: 12/10/2023 SPEC #: [id number] RECD: 12/10/23 18:24 STATUS: GISELLE REBoris #: [id number] MED: 12/10/23 10:[address]: Chastity Amor DEPT: Surgical Specimen RECD BY: Suyapa Ortega Tissues: 1 - SKIN BIOPSY(SHAVE/PUNCH) Procedures: SKIN LEVEL 4 Comments: [id number]
== END 2023-12-10 17:37 | disposition home or self-care (01) ==
LOC: LBN 17:36
PROVIDERS: PCP Nurse Practitioner; Visit Provider Nurse Practitioner
DX: L98.9 Disorder of the skin and subcutaneous tissue, unspecified (principal); L82.1 Other seborrheic keratosis
CPT/HCPCS: 88305

== ENCOUNTER → 2023-12-23 12:59 | Outpatient (BNVA) | payer MEDICARE, SELFPAY | PROVIDERS: PCP Nurse Practitioner; Referring Provider Nurse Practitioner; Visit Provider Surgery | DX: L98.9 Disorder of the skin and subcutaneous tissue, unspecified (principal) | CPT/HCPCS: 99213 ==

== ENCOUNTER 2024-03-02 13:45 | Outpatient (CLI) | payer MEDICARE, SELFPAY ==
[2024-03-02 19:11] LABS: PSA, Diagnostic 0.3 ng/mL (<=6.5)
== END 2024-03-02 13:46 | disposition home or self-care (01) ==
LOC: LBO 13:45
PROVIDERS: PCP Nurse Practitioner; Visit Provider Urology
DX: C67.9 Malignant neoplasm of bladder, unspecified (principal); R31.9 Hematuria, unspecified
CPT/HCPCS: 36415; 84153

== ENCOUNTER → 2024-03-12 09:43 | Outpatient (BNVA) | payer MEDICARE, SELFPAY | PROVIDERS: PCP Nurse Practitioner; Referring Provider Nurse Practitioner; Visit Provider Urology | DX: N50.812 Left testicular pain (principal); C67.9 Malignant neoplasm of bladder, unspecified; R36.1 Hematospermia | CPT/HCPCS: 81003; 99214 ==

== ENCOUNTER 2024-04-19 01:37 | Outpatient (CLI) | payer MEDICARE, SELFPAY ==
--- NOTE | 2024-04-19 06:15 | DI.CT_ITS ---
Exam(s) CT CHEST/ABD/PEL W EXAM: CT CHEST/ABD/PEL W CLINICAL HISTORY: ? mets or recurrence,bladder,ca,C67.9. TECHNIQUE: Imaging Protocol: Axial computed tomography images with coronal and sagittal reformatted images were created and reviewed. Computer aided detection (CAD) was utilized. CONTRAST MATERIAL: Intravenous: Omnipaque 350 Contrast volume:75 ml Oral: yes COMPARISON: CT CT CHEST/ABD/PEL W from 10/13/2023 FINDINGS: CHEST: Tracheobronchial tree: Patent. Pulmonary parenchyma: No consolidation or dominant measurable mass. Pleura: No effusion or pneumothorax. Mediastinum: Enlarged thyroid again noted. Aorta: Thoracic portion non-dilated. Pulmonary arteries: No visible emboli. Heart: No pericardial effusion. Tazc-tm-ysklhyuz coronary artery calcifications. Bones: Unremarkable for age. No lytic or blastic lesions. No compression fractures. Soft tissues: Unremarkable. ABDOMEN and PELVIS: Liver: Normal density. No measurable mass. Gallbladder and biliary tract: No evidence of stones or wall thickening. No biliary dilatation. Pancreas: Normal density, no abnormal calcifications or inflammatory process. Spleen: Normal. Kidneys: Normal size, contour and axis. No radiodense stones. No obstructive uropathy. No suspicious masses seen. Adrenal glands: No masses seen. Aorta: Abdominal portion non-dilated. Lymph nodes: Within normal limits. Soft tissues: Unremarkable. Bladder: Calcification again noted on the posterior left side of the bladder. No visible mass. No v isible wall thickening. The bladder is better distended on today's exam. Bowel: Prominent diverticulosis, greatest at the sigmoid. Wall thickening again noted dome of loop o f distal ileum superior to the bladder. No obstruction. Peritoneal cavity: No ascites. No focal collection. No mesenteric inflammatory response. No free ai r. Bones: Unremarkable for age. Reproductive organs: Within normal limits. IMPRESSION: No evidence of metastatic disease in the chest, abdomen or pelvis. Stable area of calcification left posterior bladder wall RADIATION DOSE DELIVERED: 428.62mGy.cm Total DLP DATA REPOSITORY: All CT scans at this facility are submitted to the National Radiology Data Registry (NRDR) Dose Index Registry (DIR) with the [employer] (ACR). RADIATION OPTIMIZATION: All CT scans at this facility use at least one of these dose optimization te chniques: automated exposure control; mA and/or kV adjustment per patient size (includes targeted exa ms where dose is matched to clinical indication); or iterative reconstruction.
[2024-04-19] MEDS: Barium Sulfate 2% W/V-Berry Smoothie 450 ML BTL PO ×2 (08:10→08:11)
[2024-04-19 08:30] LABS: CREATININE 0.9 mg/dL (0.70-1.30); Estimated GFR 91.88 (mL/min/1.73m2)
[2024-04-19] MEDS: Normal Saline - Diluent 50 ML VIAL IJ (10:02)
[2024-04-19] MEDS: Omnipaque 350 MG/ML 100 ML BTL IJ (10:02)
== END 2024-04-19 01:57 ==
LOC: DI 01:37
PROVIDERS: PCP Nurse Practitioner; Visit Provider Urology
DX: C67.9 Malignant neoplasm of bladder, unspecified (principal)
CPT/HCPCS: 74177; 71260; 82565; J3490

== ENCOUNTER 2024-04-26 08:58 | Day surgery (SDC) | payer MEDICARE, SELFPAY ==
[2024-04-26 09:37] VITALS: BP 122/76; PULSE 77; RESP 16; TEMP 36.5; O2SAT 98
[2024-04-26] MEDS: Ciprofloxacin 500 MG TAB PO (09:45)
[2024-04-26] MEDS: Lactated Ringers 1,000 ML 80 ML IV (09:56)
--- NOTE | 2024-04-26 10:43 | HPE_ITS ---
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 He elected trimodal therapy with chemoradiation and TUR bladder tumor rather than a radical cystectomy and systemic chemotherapy. He has had no evidence of tumor recurrence on previous studies. He presents for surveillance cystoscopy. He has no gross hematuria. He has no suprapubic pain. Review of Systems Narrative: No fevers or chills No vision change or dysphasia No diabetes or thyroid dysfunction No shortness of breath, cough or hemoptysis No chest pain or palpitations No hepatitis, ulcers, jaundice No seizures, strokes or peripheral neuropathy No bleeding disorders or anemia No gout PFSH All Active Problems Left testicular pain (Acute) Skin lesion (Acute) Diarrhea (Acute) Hematochezia (Acute) Radiation enteritis (Acute) History of insertion of tunneled central venous catheter (CVC) with port (Acute) Hypomagnesemia (Acute ~11/2022) [facility] Hem/Onc - being treated Bladder cancer (Acute) 10/16/22 F/u with Radiology 10/23/22 [facility] Rad/Onc - pt will be proceeding with ChemoRT 11/26/22 F/U [facility] Hem/Onc 12/03/22 f/u [facility] hem/onc Corns and callosities (Acute) Medical History Bladder mass Surgical History History of colonoscopy (~03/2023) path sent Port-A-Cath in place (~10/2022) Removed History of transurethral resection of bladder tumor (TURBT) Last chemo/radiation tx per pt was 01/07/23 Hx of cystoscopy (~10/2023) 10/31/23-normal biopsy ,normal cytology-next cystoscopy [address] Harris Family History Sister Breast cancer Social History (Updated 11/19/23 @ 07:49 by Meche Norman LPN) Smoking/Tobacco Use Status: Former Tobacco Use Quit Date: 04/28/89 Tobacco: How many years used: 5 Second Hand Exposure: No Smoking risk assessment performed?: Yes Alcohol Intake: current Alcohol Intake frequency: a few times a month Alcohol type: wine Counseling given: No Drug use: Occasionally Substance use type: marijuana Adopted: No Caregiver/Support person: No Foster care: No Household members: significant other Housing: house Number of Children: 0 Communication Needs: None Education Level: college Details: associate's degree Do you need help understanding health information?: Rarely current occupation: musician Pets and animals: Yes Pets and animals: dog(s) Do you think of yourself as: straight/heterosexual Current gender identity: male What is your relationship status?: How often do you talk on the phone with friends or family?: twice per week How often do you get together with friends or relatives?: twice per week Do you belong to any clubs or organized social groups?: no Panel score (0-1 are the most socially isolated patients): 1 What type of physical activity do you participate in: walking Duration: 15-30 minutes/day Frequency: 3-4 times per week Jessica/Protestant: None Special jessica needs: No Seatbelt use: always Drive intox or ride w/intox farm truck driver: No Working smoke detector in home: Yes Carbon monox detector in home: Yes Do you feel safe at home: Yes Do you feel safe in your relationship?: Yes Meds Allergies and Home Medications Allergies Allergy/AdvReac Type Severity Reaction Status Date / Time Penicillins Allergy Unknown Other (See Verified 04/26/24 09:33 Comment) Home Medications ?Medication ?Instructions ?Recorded ?Confirmed ?Type bpmbcts-oafkjmhsrkofo-yakzfiqb 250 1 tab PO DIRECTED 11/14/22 04/23/24 History mg-250 mg-65 mg tablet (Excedrin Migraine) sildenafil 100 mg tablet (Viagra) 100 mg PO DAILY PRN sexual 05/26/23 04/23/24 Rx activity #10 tabs Exam Const General: cooperative Resp Effort & Inspection: normal respiratory effort Auscultation: clear to auscultation bilaterally Cardio Rate: regular rate Rhythm: regular rhythm GI Palpation: soft and no masses Neuro General: patient alert, patient awake and patient oriented x3 Results Last Vital Signs Temp 36.5 C 04/26/24 09:37 Pulse 77 04/26/24 09:37 Resp 16 04/26/24 09:37 BP 122/76 04/26/24 09:37 Pulse Ox 98 04/26/24 09:37 Time Spent Time spent with Patient: <40 minutes Time was spent: other
--- NOTE | 2024-04-26 11:05 | W.ANESPRE ---
General Info Date of Service Date Performed: 04/26/24 Height: 6 ft 3 in Weight: 83.5 kg Body Mass Index (BMI): 23.0 Surgical Procedure: Operation Date: 04/26/24 11:40 Proposed Procedure Side Surgeon p Cysto, Possible Transurethral Resection Bladder Tumor Francisco J Harris MD Meds Allergies and Home Medications Allergies Allergy/AdvReac Type Severity Reaction Status Date / Time Penicillins Allergy Unknown Other (See Verified 04/26/24 09:33 Comment) Home Medication ?Medication ?Instructions ?Recorded nalriwt-nrehiyruwiliz-cgcecdkd 250 1 tab PO DIRECTED 11/14/22 mg-250 mg-65 mg tablet (Excedrin Migraine) sildenafil 100 mg tablet (Viagra) 100 mg PO DAILY PRN sexual 05/26/23 activity #10 tabs Current Visit Medications: Current Medications Generic Name Dose Route Start Last Admin Trade Name Freq PRN Reason Stop Dose Admin Ciprofloxacin HCl 500 mg 04/26/24 06:00 04/26/24 09:45 Ciprofloxacin 500 Mg Tab PO 04/26/24 23:59 500 mg PREOP RAFFY Administration Ringer's Solution 1,000 mls @ 80 mls/hr 04/26/24 06:00 04/26/24 09:56 IV 04/26/24 23:59 80 mls/hr INFUSION RAFFY Administration IV Miscellaneous Supplies 1 each 04/26/24 06:00 Iv Access IV 04/26/24 23:59 DIRECTED RAFFY Sodium Chloride 0 ml 04/26/24 06:00 Normal Saline Flush 10 Ml Syr IV 04/26/24 23:59 PRN PRN Sodium Chloride 0 ml 04/26/24 06:00 Normal Saline 10 Ml Vial IJ 04/26/24 23:59 DIRECTED PRN Sterile Water 0 ml 04/26/24 06:00 Water,Injection,Sterile 10 Ml Vial IJ 04/26/24 23:59 DIRECTED PRN PFSH Active Problems Active Problems: Problem Status Onset Code Left testicular pain Acute N50.812 Skin lesion Acute L98.9 Diarrhea Acute R19.7 Hematochezia Acute K92.1 Radiation enteritis Acute K52.0 History of insertion of tunneled central venous catheter (CVC) with port Acute Z98.890 Hypomagnesemia Acute ~11/2022 E83.42 Bladder cancer Acute C67.9 Corns and callosities Acute L84 Medical History Medical History Bladder mass Surgical History Surgical History History of colonoscopy (~03/2023) path sent Port-A-Cath in place (~10/2022) Removed History of transurethral resection of bladder tumor (TURBT) Last chemo/radiation tx per pt was 01/07/23 Hx of cystoscopy (~10/2023) 10/31/23-normal biopsy ,normal cytology-next cystoscopy [address] Harris Tobacco Smoking/Tobacco Use Status: Former Tobacco Use Passive smoking exposure: No Second hand exposure: No Alcohol Alcohol Intake: current Alcohol intake frequency: a few times a month Alcohol type: wine Substance Use Substance use: Occasionally Substance use type: marijuana Vital Signs and Lab Results Vital Signs Most Recent Vital Signs in EMR: Most Recent Vital Signs Temp Pulse Resp BP Pulse Ox 36.5 C 77 16 122/76 98 04/26/24 09:37 04/26/24 09:37 04/26/24 09:37 04/26/24 09:37 04/26/24 09:37 Lab Results Blood Type / Crossmatch: No Data to Display Complete Blood Count: No Data to Display Complete Metabolic Panel: Creatinine 0.9 mg/dL (0.70-1.30) 04/19/24 08:05 Est GFR (CKD-EPI 2020) 91.88 (mL/min/1.73m2) 04/19/24 08:05 Liver Function Panel: No Data to Display Coagulation Panel: No Data to Display Cardiac Panel: No Data to Display Arterial Blood Gas: No Data to Display Venous Blood Gas: No Data to Display Pancreas Panel: No Data to Display Thyroid Panel: No Data to Display Infectious Disease: No Data to Display Blood Cultures: No Data to Display Toxicology Panel: No Data to Display Anesthesia Assessment and Plan Anesthesia History Personal History: No History of Anesthesia Complications Family History: No Family History of Anesthesia Complications Exercise Tolerance Exercise Tolerance: Metabolic Equivalents>4 Pertinent Negatives Pertinent Negatives: No Symptoms of GERD, No Major Cardiovascular Symptoms or Complaints and No Major Pulmonary Symptoms or Complaints Cardiac & Pulmonary Exam Cardiac Exam: Normal S1/S2 Heart Sounds Pulmonary Exam: Clear Bilateral Breath Sounds Implantable Cardiac Device Does patient have a Pacemaker or an ICD?: No Airway Exam Known Difficult Airway: No Mallampati Class: 2 Mouth Opening: Normal (> 3cm) Thyromental Distance: Greater than 3 cm Neck Range of Motion: Full ROM Neck Circumference: Normal Teeth Condition: Normal Dentition and Generalized Poor Dentition ASA Classification ASA Score: ASA 2 Emergency Case?: No NPO Status NPO Status: NPO Clears >2 hours, Solids >8 hours Anesthesia Plan Resuscitation Status: Full Code Anesthesia Technique: General Anesthesia Airway Planned: Natural Airway Monitors Used: Standard Monitors
[2024-04-26 11:08] VITALS: BMI 23.0
--- NOTE | 2024-04-26 13:09 | BLADDER_PTH ---
PATIENT: Shadi Castaneda LOC: [facility] U#:[id number] AGE/SX: 68/M ROOM: RE04/26/[address]: Francisco J Harris MD : 1955 BED: DIS: 04/26/2024 SPEC #: [id number] RECD: 04/26/24 17:30 STATUS: GISELLE REQ #: [id number] MED: 04/26/24 13:[address]: Francisco J Harris DEPT: Surgical Specimen RECD BY: Suyapa Ortega ENTERED: 04/26/24 17:31 SP TYPE: Bladder OTHR DR: Chastity Amor APRN Tissues: 1 - BLADDER BIOPSY Procedures: GROSS AND MICRO LEVEL 4 Comments: [id number]
[2024-04-26] MEDS: Lidocaine 2% Jelly 6 ML SYR (13:11)
--- NOTE | 2024-04-26 13:29 | W.PM.DSUDISC ---
Date of service: 04/26/24 Discharge Plan Disposition Patient Disposition: Home Discharge Details Reason For Visit: bladder biopsy Attending Provider: Francisco J Harris Primary Care Provider: Chastity Amor Home Meds and New Rx's Prescriptions: No Action sildenafil [Viagra] 100 mg tablet 100 mg PO DAILY PRN (Reason: sexual activity) Qty: 10 12RF Rx Instructions: administer 30 minutes to 4 hours before activity Excedrin Migraine 250-250-65 mg Tablet 1 tab PO DIRECTED Discharge Instructions Additional Instructions: followup 1 to 2 weeks to review biopsy results Discharge Orders Discharge Orders: Discharge Order (Routine); Ordered 04/26/24 Ordered By: Francisco J Harris DS: Diagnosis Discharge Diagnosis (1) Bladder cancer: Status: Acute
[2024-04-26 13:30] VITALS: BP 128/71; PULSE 76; RESP 20; TEMP 36.3; O2SAT 100
[2024-04-26 13:35] VITALS: BP 100/58; PULSE 79; RESP 18; O2SAT 99
[2024-04-26 13:40] VITALS: BP 110/76; PULSE 75; RESP 16; TEMP 36.4; O2SAT 97
--- NOTE | 2024-04-26 13:46 | ROE_ITS ---
Operative Note Operative Note PRE-OP DIAGNOSIS: Bladder cancer POST-OP DIAGNOSIS: same PROCEDURE: Cystoscopy, bladder biopsy with fulguration of biopsy site SURGEON: Francisco J Harris ANESTHESIA TYPE: Local By Surgeon and General LMA/ETT Refer to Anesthesia Record ESTIMATED BLOOD LOSS: 5 PATHOLOGY: other (Bladder biopsies) COMPLICATIONS: None Patient was transported to: PACU Patient's condition: stable Implants: None Indications: This is a 68-year-old gentleman who has a history of muscle invasive urothelial cell carcinoma of the bladder. He was treated with Tri modal therapy. He has not had any evidence of recurrence on follow-up biopsies. He presents for surveillance cystoscopy and possible transurethral resection of any abnormality Findings: Scar with stone on the left lateral bladder wall Procedure Description: The patient was brought to the operating room on 04/26/2024. He was given preprocedural antibiotics. After successful induction of general anesthesia, he was placed in the dorsal lithotomy position. His genitalia was prepped with Betadine. 2% Xylocaine jelly was instilled into the urethra to act as a local anesthetic. A 22 Croatian rigid cystoscope was passed through the urethra into the bladder. The urethra and bladder were inspected with the 30 degree lens. The pendulous, bulbar and membranous urethra appeared normal with no strictures. The prostatic urethra showed lateral lobe enlargement but no significant median lobe present. The bladder neck was entered and the bladder mucosa was inspected. The right ureteral orifice appeared normal. The left orifice showed a erythematous patch of mucosa just posteriorly. There was stone and necrotic tissue attached to the erythematous patch. The remainder of the bladder was inspected using both a 30 and a 70 degree lens. No additional areas of abnormality were identified. I then utilized a cold cup biopsy forceps to remove some of the stone off the erythematous mucosa. I took multiple biopsies from the erythematous mucosa and sent them to the lab for permanent section. The biopsy site was then cauterized using the bipolar Bugbee. The bladder was emptied and the cystoscope was removed. The patient tolerated the procedure well with no complications. Date of Procedure: 04/26/24
[2024-04-26 13:49] VITALS: BP 107/72; PULSE 73; RESP 16; TEMP 36.1; O2SAT 96
--- NOTE | 2024-04-26 13:53 | W.ANESPOSTOP ---
Postoperative Evaluation Date, Time and Location Date Performed: 04/26/24 Time Performed: 13:53 Patient Location: PACU Vital Signs Most Recent Imported Vital Signs: Most Recent Vital Signs Temp Pulse Resp BP Pulse Ox 36.1 C L 73 16 110/76 96 04/26/24 13:49 04/26/24 13:49 04/26/24 13:49 04/26/24 13:40 04/26/24 13:49 Pain Score Most Recent Pain Score: Most Recent Pain Score Pain Level 0 04/26/24 13:49 Assessment Mental Status: Arousable with meaningful communication Airway and Respiratory Function: Patent airway with normal (patient baseline) respiratory exam Cardiovascular Function: Hemodynamically Stable Hydration Status: Adequately Hydrated Nausea & Vomiting: No Nausea or Vomiting Pain: Pt. Denies Any Pain Peripheral Nerve Block: Patient did not receive a nerve block
[2024-04-26] MEDS: Phenazopyridine 200 MG TAB PO (13:56)
[2024-04-26 14:15] VITALS: BP 123/83; PULSE 68; RESP 16; TEMP 36.4; O2SAT 96
== END 2024-04-26 14:48 | disposition home or self-care (01) ==
PROVIDERS: PCP Nurse Practitioner; Visit Provider Urology
PROC: 0TBB8ZZ Excision of Bladder, Via Natural or Artificial Opening Endoscopic (ICD-10-PCS; CPT 52204; principal; 2024-04-26 11:30)
DX: C67.9 Malignant neoplasm of bladder, unspecified (principal); N21.0 Calculus in bladder; N32.89 Other specified disorders of bladder
CPT/HCPCS: 52204; 88305; J1100; J1885; J2250; J2405; J2704

== ENCOUNTER → 2024-05-11 14:42 | Outpatient (BNVA) | payer MEDICARE, SELFPAY | PROVIDERS: PCP Nurse Practitioner; Referring Provider Nurse Practitioner; Visit Provider Urology | DX: C67.9 Malignant neoplasm of bladder, unspecified (principal) | CPT/HCPCS: 99213 ==

== ENCOUNTER 2024-10-18 06:11 | Day surgery (SDC) | payer MEDICARE, SELFPAY ==
[2024-10-18 06:18] VITALS: BP 113/69; PULSE 74; RESP 18; TEMP 36.2; O2SAT 97
[2024-10-18] MEDS: Lactated Ringers 1,000 ML 80 ML IV (06:44)
--- NOTE | 2024-10-18 06:46 | W.PM.HP.N ---
Date of service: 10/18/24 Time of Service: 06:47 Assessment and Plan Assessment and plan (1) Bladder cancer: Status: Acute Assessment and plan: We will plan for his surveillance cystoscopy and we will be prepared to take biopsies should we see any mucosal abnormality. If there is nothing visually abnormal, we will still take a urine for cytology. 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 His initial diagnosis was in August 2022. He elected trimodal therapy with chemoradiation and TUR bladder tumor rather than a radical cystectomy and systemic chemotherapy. He has had no evidence of tumor recurrence on previous studies. He presents for surveillance cystoscopy. He has no gross hematuria. He has no suprapubic pain. Review of Systems Narrative: No fevers or chills No vision change or dysphasia No diabetes or thyroid dysfunction No shortness of breath, cough or hemoptysis No chest pain or palpitations No hepatitis, ulcers, jaundice No seizures, strokes or peripheral neuropathy No bleeding disorders or anemia No gout PFSH All Active Problems Left testicular pain (Acute) Skin lesion (Acute) Diarrhea (Acute) Hematochezia (Acute) Radiation enteritis (Acute) History of insertion of tunneled central venous catheter (CVC) with port (Acute) Hypomagnesemia (Acute ~11/2022) [facility] Hem/Onc - being treated Bladder cancer (Acute) 10/16/22 F/u with Radiology 10/23/22 [facility] Rad/Onc - pt will be proceeding with ChemoRT 11/26/22 F/U [facility] Hem/Onc 12/03/22 f/u [facility] hem/onc Corns and callosities (Acute) Medical History Bladder mass Surgical History History of colonoscopy (~03/2023) path sent Port-A-Cath in place (~10/2022) Removed History of transurethral resection of bladder tumor (TURBT) Last chemo/radiation tx per pt was 01/07/23 Hx of cystoscopy (~04/26/24) 04/26/24 Cystoscopy, bladder w/ fulguration of bx site.HE 10/31/23-normal biopsy ,normal cytology-next cystoscopy [address] Harris Family History Sister Breast cancer Social History (Updated 11/19/23 @ 07:49 by Meche Norman LPN) Smoking/Tobacco Use Status: Former Tobacco Use Quit Date: 04/28/89 Tobacco: How many years used: 5 Second Hand Exposure: No Smoking risk assessment performed?: Yes Alcohol Intake: current Alcohol Intake frequency: a few times a month Alcohol type: wine Counseling given: No Drug use: Occasionally Substance use type: marijuana Adopted: No Caregiver/Support person: No Foster care: No Household members: significant other Housing: house Number of Children: 0 Communication Needs: None Education Level: college Details: associate's degree Do you need help understanding health information?: Rarely current occupation: musician Pets and animals: Yes Pets and animals: dog(s) Do you think of yourself as: straight/heterosexual Current gender identity: male What is your relationship status?: How often do you talk on the phone with friends or family?: twice per week How often do you get together with friends or relatives?: twice per week Do you belong to any clubs or organized social groups?: no Panel score (0-1 are the most socially isolated patients): 1 What type of physical activity do you participate in: walking Duration: 15-30 minutes/day Frequency: 3-4 times per week Jessica/Mormon: None Special jessica needs: No Seatbelt use: always Drive intox or ride w/intox test car driver: No Working smoke detector in home: Yes Carbon monox detector in home: Yes Do you feel safe at home: Yes Do you feel safe in your relationship?: Yes Meds Allergies and Home Medications Allergies Allergy/AdvReac Type Severity Reaction Status Date / Time Penicillins Allergy Unknown Other (See Verified 10/18/24 06:28 Comment) Home Medications ?Medication ?Instructions ?Recorded ?Confirmed ?Type iebdcwy-kmbycasddkfqj-esxvjwfc 250 1 tab PO DIRECTED 11/14/22 10/18/24 History mg-250 mg-65 mg tablet (Excedrin Migraine) sildenafil 100 mg tablet (Viagra) 100 mg PO DAILY PRN sexual 05/26/23 10/18/24 Rx activity #10 tabs Exam Const General: cooperative Neck Neck: normal visual inspection and supple Resp Effort & Inspection: normal respiratory effort Auscultation: clear to auscultation bilaterally Cardio Rate: regular rate Rhythm: regular rhythm GI Inspection: normal to inspection Palpation: soft and no masses Neuro General: patient alert, patient awake and patient oriented x3 Results Last Vital Signs Temp 36.2 C L 10/18/24 06:18 Pulse 74 10/18/24 06:18 Resp 18 10/18/24 06:18 BP 113/69 10/18/24 06:18 Pulse Ox 97 10/18/24 06:18 Time Spent Time spent with Patient: <40 minutes Time was spent: other
[2024-10-18] MEDS: Ciprofloxacin 500 MG TAB PO (06:48)
--- NOTE | 2024-10-18 06:56 | ANES.PREOP_ITS ---
General Info Date of Service Date Performed: 10/18/24 Height: 6 ft 3 in Weight: 83.3 kg Body Mass Index (BMI): 22.9 Surgical Procedure: Operation Date: 10/18/24 07:40 Proposed Procedure Side Surgeon p Cystoscopy w/Possible Transurethral Resection Bladder Tumor Francisco J Harris MD Meds Allergies and Home Medications Allergies Allergy/AdvReac Type Severity Reaction Status Date / Time Penicillins Allergy Unknown Other (See Verified 10/18/24 06:28 Comment) Home Medication ?Medication ?Instructions ?Recorded qdjeixj-zksliyekvkxcd-ptcngvql 250 1 tab PO DIRECTE D 11/14/22 mg-250 mg-65 mg tablet (Excedrin Migraine) sildenafil 100 mg tablet (Viagra) 100 mg PO DAILY PRN sexual 05/26/23 activity #10 tabs Current Visit Medications: Current Medications Generic Name Dose Route Start Last Admin Trade Name Freq PRN Reason Stop Dose Admin Ciprofloxacin HCl 500 mg 10/18/24 06:00 10/18/24 06:48 Ciprofloxacin 500 Mg Tab PO 10/18/24 23:59 500 mg PREOP RAFFY Administration Ringer's Solution 1,000 mls @ 0 mls/hr 10/18/24 06:00 10/18/24 06:44 IV 10/18/24 23:59 80 mls/hr INFUSION RAFFY Administration IV Miscellaneous Supplies 1 each 10/18/24 06:00 Iv Access IV 10/18/24 23:59 DIRECTED RAFFY Sodium Chloride 0 ml 10/18/24 06:00 Normal Saline Flush 10 Ml Syr IV 10/18/24 23:59 PRN PRN Sodium Chloride 0 ml 10/18/24 06:00 Normal Saline 10 Ml Vial IJ 10/18/24 23:59 DIRECTED PRN Sterile Water 0 ml 10/18/24 06:00 Water,Injection,Sterile 10 Ml Vial IJ 10/18/24 23:59 DIRECTED PRN PFSH Active Problems Active Problems: Problem Status Onset Code Left testicular pain Acute N50.812 Skin lesion Acute L98.9 Diarrhea Acute R19.7 Hematochezia Acute K92.1 Radiation enteritis Acute K52.0 History of insertion of tunneled central venous catheter (CVC) with port Acute Z98.890 Hypomagnesemia Acute ~11/2022 E83.42 Bladder cancer Acute C67.9 Corns and callosities Acute L84 Medical History Medical History Bladder mass Surgical History Surgical History History of colonoscopy (~03/2023) path sent Port-A-Cath in place (~10/2022) Removed History of transurethral resection of bladder tumor (TURBT) Last chemo/radiation tx per pt was 01/07/23 Hx of cystoscopy (~04/26/24) 04/26/24 Cystoscopy, bladder w/ fulguration of bx site.HE 10/31/23-normal biopsy ,normal cytology-next cystoscopy [address] Harris Tobacco Smoking/Tobacco Use Status: Former Tobacco Use Passive smoking exposure: No Second hand exposure: No Alcohol Alcohol Intake: current Alcohol intake frequency: a few times a month Alcohol type: wine Substance Use Substance use: Occasionally Substance use type: marijuana Vital Signs and Lab Results Vital Signs Most Recent Vital Signs in EMR: Most Recent Vital Signs Temp Pulse Resp BP Pulse Ox 36.2 C L 74 18 113/69 97 10/18/24 06:18 10/18/24 06:18 10/18/24 06:18 10/18/24 06:18 10/18/24 06:18 Anesthesia Assessment and Plan Anesthesia History Personal History: No History of Anesthesia Complications Family History: No Family History of Anesthesia Complications Exercise Tolerance Exercise Tolerance: Metabolic Equivalents>4 Pertinent Negatives Pertinent Negatives: No Major Cardiovascular Symptoms or Complaints and No Major Pulmonary Symptoms or Complaints Cardiac & Pulmonary Exam Cardiac Exam: Normal S1/S2 Heart Sounds Pulmonary Exam: Clear Bilateral Breath Sounds Implantable Cardiac Device Does patient have a Pacemaker or an ICD?: No Airway Exam Known Difficult Airway: No Mallampati Class: 2 Mouth Opening: Normal (> 3cm) Thyromental Distance: Greater than 3 cm Neck Range of Motion: Full ROM Neck Circumference: Normal Teeth Condition: Normal Dentition and Generalized Poor Dentition ASA Classification ASA Score: ASA 2 Emergency Case?: No NPO Status NPO Status: NPO Clears >2 hours, Solids >8 hours Anesthesia Plan Resuscitation Status: Full Code Anesthesia Technique: MAC Anesthesia Airway Planned: Natural Airway Monitors Used: Standard Monitors Preoperative Comments:: Reviewed previous anesthetic, plan to start with MAC anesthesia and convert the GA/ETT if indicated per surgical findings. Patient agreeable to plan. No active GERD symptoms.
[2024-10-18 07:00] VITALS: BMI 22.9
[2024-10-18] MEDS: Lidocaine 2% Jelly 11 ML SYR (07:47)
--- NOTE | 2024-10-18 07:48 | PAPNONF_PTH ---
PATIENT: Shadi Castaneda LOC: [facility] U#:[id number] AGE/SX: 69/M ROOM: RE10/18/[address]: Francisco J Harris MD : 1955 BED: DIS: 10/18/2024 SPEC #: [id number] RECD: 10/18/24 13:25 STATUS: GISELLE REBrois #: [id number] MED: 10/18/24 07:[address]: Francisco J Harris DEPT: [facility] Cytology RECD BY: Suyapa Ortega ENTERED: 10/18/24 13:25 SP TYPE: JENNIFER PALACIOS DR: Chastity Amor APRN Tissues: 1 - BODY FLUID CYTO(SPUTUM/URINE)[facility] Procedures: BODY FLUID CYTO(URINE/SPUTUM) Comments: [id number] (TV = 70 ml, 30 ml CYTOLYT ADDED) (REFRIGERATED)
--- NOTE | 2024-10-18 07:57 | W.PM.DSUDISC ---
Date of service: 10/18/24 Discharge Plan Disposition Patient Disposition: Home Condition: Stable Discharge Details Reason For Visit: cystoscopy Attending Provider: Francisco J Harris Primary Care Provider: Chastity Amor Home Meds and New Rx's Prescriptions: No Action sildenafil [Viagra] 100 mg tablet 100 mg PO DAILY PRN (Reason: sexual activity) Qty: 10 12RF Rx Instructions: administer 30 minutes to 4 hours before activity Excedrin Migraine 250-250-65 mg Tablet 1 tab PO DIRECTED Discharge Instructions Additional Instructions: followup after CT scan to review results of imaging and cytology Activity:: Activity as Tolerated Shower/Bathe:: 24 hours Diet:: As Tolerated Discharge Orders Discharge Orders: Discharge Order (Routine); Ordered 10/18/24 Ordered By: Francisco J Harris DS: Diagnosis Discharge Diagnosis (1) Bladder cancer: Status: Acute
[2024-10-18 07:58] VITALS: BP 111/62; PULSE 70; RESP 18; TEMP 36.2; O2SAT 96
--- NOTE | 2024-10-18 07:58 | W.PM.OP ---
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 His diagnosis was made about 2 years ago. He underwent Tri modal therapy rather than a cystectomy. He presents now for surveillance cystoscopy. Findings: scar left bladder wall Procedure Description: The patient was given oral antibiotics and brought to the operating room on 10/18/2024. After successful induction of anesthesia, he was placed in the dorsal lithotomy position. His genitalia was prepped and draped. 2% Xylocaine jelly was instilled into the urethra to act as a local anesthetic. A 22 [place]ian rigid cystoscope was passed through the urethra into the bladder. The urine from the bladder was collected and sent to the lab for cytology. The urethra and bladder were inspected with the 30 degree lens. The pendulous, bulbar and membranous urethra's appeared normal with no strictures. The prostatic urethra showed some lateral lobe enlargement but no significant median lobe. The bladder neck was entered and the bladder mucosa was inspected. Both ureteral orifices appeared normal with no blood coming from either side. We again identified a scar on the left side of the bladder and there were small areas of adherent stone with surrounding erythematous changes. This appearance is unchanged from 6 months ago. No additional papillary or nodular lesions were identified on the bladder mucosa. The bladder was emptied and the cystoscope was withdrawn. The patient tolerated the procedure well with no complications. Date of Procedure: 10/18/24
--- NOTE | 2024-10-18 08:13 | W.ANESPOSTOP ---
Postoperative Evaluation Date, Time and Location Date Performed: 10/18/24 Time Performed: 08:13 Patient Location: Day Surgery Unit Vital Signs Most Recent Imported Vital Signs: Most Recent Vital Signs Temp Pulse Resp BP Pulse Ox 36.2 C L 70 18 111/62 96 10/18/24 07:58 10/18/24 07:58 10/18/24 07:58 10/18/24 07:58 10/18/24 07:58 Pain Score Most Recent Pain Score: Most Recent Pain Score Pain Level 0 10/18/24 07:58 Assessment Mental Status: Awake (Alert & Oriented to Patient Baseline) Airway and Respiratory Function: Patent airway with normal (patient baseline) respiratory exam Cardiovascular Function: Hemodynamically Stable Hydration Status: Adequately Hydrated Nausea & Vomiting: No Nausea or Vomiting Pain: Pt. Denies Any Pain Peripheral Nerve Block: Patient did not receive a nerve block
[2024-10-18 08:32] VITALS: BP 108/69; PULSE 63; RESP 18; TEMP 36.3; O2SAT 96
[2024-10-18] MEDS: Phenazopyridine 200 MG TAB PO (08:55)
== END 2024-10-18 09:00 | disposition home or self-care (01) ==
PROVIDERS: PCP Nurse Practitioner; Visit Provider Urology
PROC: 0TBB8ZZ Excision of Bladder, Via Natural or Artificial Opening Endoscopic (ICD-10-PCS; CPT 52000; principal; 2024-10-18 07:30)
DX: Z08 Encounter for follow-up examination after completed treatment for malignant neoplasm (principal); Z85.51 Personal history of malignant neoplasm of bladder
CPT/HCPCS: 52000; 88104; J1885; J2250; J2405; J2704; J3010

== ENCOUNTER 2024-10-28 02:02 | Outpatient (CLI) | payer MEDICARE, SELFPAY ==
--- NOTE | 2024-10-28 07:45 | DI.CT_ITS ---
Exam(s) CT CHEST/ABD/PEL W EXAM: CT CHEST/ABD/PEL W CLINICAL HISTORY: ? METS, BLADDER CA,C67.9. TECHNIQUE: Imaging Protocol: Axial computed tomography images with coronal and sagittal reformatted images were created and reviewed. Computer aided detection (CAD) was utilized. CONTRAST MATERIAL: Intravenous: Omnipaque 350 Contrast volume:100 ml Oral: yes/900 mL COMPARISON: CT CT CHEST/ABD/PEL W from 04/19/2024 FINDINGS: CHEST: Pulmonary parenchyma: No consolidation. 6 millimeter nodule at anterior right lung base, new from the prior exam. Stable 6 x 3 millimeter nodule anterior right upper lobe. New 4 millimeter nodule left upper lobe. New 5 millimeter endobronchial lesion in the right upper lobe Tracheobronchial tree: No bronchiectasis. No mucous plugging.No bronchial wall thickening. Pleura: No effusion or pneumothorax. Mediastinum: No adenopathy. Enlarged thyroid. Pulmonary arteries: No visible emboli. Cardiovascular: Heart size normal. Mild to moderate coronary artery calcifications. No pericardial effusion. Thoracic aorta non-dilated. Bones: Unremarkable for age. No lytic or blastic lesions.No compression fractures. Soft tissues: Unremarkable. ABDOMEN and PELVIS: Liver: Normal density. No suspicious mass. Gallbladder and biliary tract: No evidence of stones or wall thickening. No biliary dilatation. Pancreas: Normal density, no abnormal calcifications or inflammatory process. Spleen: Normal. Kidneys: Normal size, contour and axis. No radiodense stones. No obstructive uropathy. No suspicious masses seen. Adrenal glands: No masses seen. Aorta: Abdominal portion non-dilated. Lymph nodes: Within normal limits. Soft tissues: Unremarkable. Bladder: Nearly empty, not well evaluated. A tiny calcific focus is seen in the left side of the bladder wall which is decreased in size when compared to the previous exam. Bowel: Diverticulum of the transverse portion of the duodenum. Diverticulosis throughout the colon. Appendix normal. No obstruction or bowel wall thickening. Peritoneal cavity: No ascites. No focal collection. No mesenteric inflammatory response. No free air. Bones: Unremarkable for age. Reproductive organs: Unremarkable for age. IMPRESSION: There are a few new pulmonary nodules which could represent metastatic disease. Diffuse bladder wall thickening without visible mass. Decreased size of previously noted calcification in the left posterolateral bladder wall. No evidence of adenopathy. RADIATION DOSE DELIVERED: Total DLP DATA REPOSITORY: All CT scans at this facility are submitted to the National Radiology Data Registry (NRDR) Dose Index Registry (DIR) with the [employer] (ACR). RADIATION OPTIMIZATION: All CT scans at this facility use at least one of these dose optimization techniques: automated exposure control; mA and/or kV adjustment per patient size (includes targeted exams where dose is matched to clinical indication); or iterative reconstruction.
[2024-10-28] MEDS: Barium Sulfate 2% W/V-Berry Smoothie 450 ML BTL PO (11:18)
[2024-10-28] MEDS: Barium Sulfate 2% W/V-Creamy Vanilla Smoothie 450 ML BTL PO (11:19)
[2024-10-28 11:38] LABS: Estimated GFR 94.62 (mL/min/1.73m2)
[2024-10-28] MEDS: Normal Saline - Diluent 50 ML VIAL IJ (13:14)
[2024-10-28] MEDS: Omnipaque 350 MG/ML 100 ML BTL IJ (13:16)
== END 2024-10-28 02:22 ==
PROVIDERS: Visit Provider Urology
DX: C67.9 Malignant neoplasm of bladder, unspecified (principal)
CPT/HCPCS: 74177; 71260; 82565; J3490

== ENCOUNTER → 2024-11-02 10:23 | Outpatient (BNVA) | payer MEDICARE, SELFPAY | PROVIDERS: PCP Nurse Practitioner; Referring Provider Nurse Practitioner; Visit Provider Urology | DX: C67.9 Malignant neoplasm of bladder, unspecified (principal); R91.8 Other nonspecific abnormal finding of lung field | CPT/HCPCS: 99215 ==

== ENCOUNTER → 2024-11-29 15:39 | Outpatient (BNVA) | payer MEDICARE, SELFPAY | PROVIDERS: PCP Nurse Practitioner; Referring Provider Nurse Practitioner; Visit Provider Urology | DX: C67.9 Malignant neoplasm of bladder, unspecified (principal); R91.1 Solitary pulmonary nodule | CPT/HCPCS: 99213 ==

== ENCOUNTER 2024-12-20 10:02 | Outpatient (REF) | payer MEDICARE, SELFPAY ==
[2024-12-20 10:35] LABS: Glucose Negative (Negative)
[2024-12-20 10:41] LABS: C & S Indicated? No; WBC 0-2 HPF (0-5)
== END 2024-12-20 10:03 | disposition home or self-care (01) ==
LOC: LBN 10:02
PROVIDERS: PCP Nurse Practitioner; Visit Provider Urology
DX: R31.0 Gross hematuria (principal)
CPT/HCPCS: 81003; 81015

== ENCOUNTER 2025-01-13 06:08 | Day surgery (SDC) | payer MEDICARE, SELFPAY ==
[2025-01-13 06:15] VITALS: BP 107/86; PULSE 77; RESP 16; TEMP 36.4; O2SAT 98
--- NOTE | 2025-01-13 06:49 | W.PM.HP.N ---
Date of service: 01/13/25 Time of Service: 06:49 Assessment and Plan Assessment and plan (1) Bladder cancer: Status: Acute (2) Gross hematuria: Status: Acute Assessment and plan: We will move ahead with cystoscopy, bladder biopsy and fulguration of any suspicious areas. History of Present Illness History of Present Illness Chief Complaint: Hematuria Narrative: This is a 69-year-old gentleman who has a history of muscle invasive urothelial carcinoma of the bladder. He was treated with Tri modal therapy (TURBT/chemo/radiation). He is followed both cystoscopically and radiographically and has had no recurrence at this time. He has had intermittent episodes of gross painless hematuria with negative urine cultures. His imaging studies showed no upper tract disease. He presents for cystoscopy and possible transurethral resection of any visible bladder tumor Review of Systems Narrative: No fevers or chills No vision change or dysphasia No diabetes or thyroid dysfunction No shortness of breath, cough or hemoptysis No chest pain or palpitations No nausea, vomiting, hepatitis, ulcers, jaundice No seizures, strokes or peripheral neuropathy No bleeding disorders or anemia No gout PFSH All Active Problems (Updated 01/13/25 @ 06:53 by Francisco J Harris MD) Gross hematuria (Acute) Hyperlipidemia (Acute) Anemia (Chronic) Hyperglycemia (Acute) Fatigue (Acute) Urinary hesitancy (Acute) Lung nodule (Acute) Pulmonary nodules (Acute) Left testicular pain (Acute) Skin lesion (Acute) Diarrhea (Acute) Hematochezia (Acute) Radiation enteritis (Acute) History of insertion of tunneled central venous catheter (CVC) with port (Acute) Hypomagnesemia (Acute ~11/2022) St Hem/Onc - being treated Bladder cancer (Acute) 10/16/22 F/u with Radiology 10/23/22 [facility] Rad/Onc - pt will be proceeding with ChemoRT 11/26/22 F/U [facility] Hem/Onc 12/03/22 f/u [facility] hem[facility]onc Corns and callosities (Acute) Medical History (Updated 01/13/25 @ 06:53 by Francisco J Harris MD) Bladder mass Surgical History History of colonoscopy (~03/2023) path sent Port-A-Cath in place (~10/2022) Removed History of transurethral resection of bladder tumor (TURBT) Last chemo/radiation tx per pt was 01/07/23 Hx of cystoscopy (~04/26/24) 04/26/24 Cystoscopy, bladder w/ fulguration of bx site.HE 10/31/23-normal biopsy ,normal cytology-next cystoscopy [address] Harris Family History Sister Breast cancer Social History (Updated 12/02/24 @ 07:58 by Myra Caro RN) Smoking/Tobacco Use Status: Former Tobacco Use Quit Date: 04/28/89 Tobacco: How many years used: 5 Second Hand Exposure: No Smoking risk assessment performed?: Yes Alcohol Intake: current Alcohol Intake frequency: a few times a month Alcohol type: wine Counseling given: No Drug use: Occasionally Substance use type: marijuana Adopted: No Caregiver/Support person: No Foster care: No Household members: significant other Housing: house Number of Children: 0 Communication Needs: None Education Level: college Details: associate's degree Do you need help understanding health information?: Rarely current occupation: musician Pets and animals: Yes Pets and animals: dog(s) Do you think of yourself as: straight/heterosexual Current gender identity: male What is your relationship status?: How often do you talk on the phone with friends or family?: twice per week How often do you get together with friends or relatives?: twice per week Do you belong to any clubs or organized social groups?: no Panel score (0-1 are the most socially isolated patients): 1 What type of physical activity do you participate in: walking Duration: 15-30 minutes/day Frequency: daily Jessica/Adventist: None Special jessica needs: No Seatbelt use: always Drive intox or ride w/intox tractor trailer truck driver: No Working smoke detector in home: Yes Carbon monox detector in home: Yes Additional Social history: [employer] Meds Allergies and Home Medications Allergies Allergy/AdvReac Type Severity Reaction Status Date / Time Penicillins Allergy Unknown Other (See Verified 01/13/25 06:30 Comment) Home Medications ?Medication ?Instructions ?Recorded ?Confirmed ?Type hllstnu-aqewwdprkfujv-ivvsglfq 250 1 tab PO DIRECTED 11/14/22 01/13/25 History mg-250 mg-65 mg tablet (Excedrin Migraine) sildenafil 100 mg tablet (Viagra) 100 mg PO DAILY PRN sexual 12/02/24 01/13/25 Rx activity #10 tabs Exam Const General: cooperative Neck Neck: supple Resp Effort & Inspection: normal respiratory effort Auscultation: clear to auscultation bilaterally Cardio Rate: regular rate Rhythm: regular rhythm GI Inspection: normal to inspection Palpation: soft and no masses Neuro General: patient alert, patient awake and patient oriented x3 Results Last Vital Signs Temp 36.4 C L 01/13/25 06:15 Pulse 77 01/13/25 06:15 Resp 16 01/13/25 06:15 BP 107/86 01/13/25 06:15 Pulse Ox 98 01/13/25 06:15 Time Spent Time spent with Patient: <40 minutes Time was spent: other
[2025-01-13] MEDS: Lactated Ringers 1,000 ML 80 ML IV (06:50)
--- NOTE | 2025-01-13 07:08 | ANES.PREOP_ITS ---
General Info Date of Service Date Performed: 01/13/25 Height: 6 ft 1.5 in Weight: 83.3 kg Body Mass Index (BMI): 23.8 Surgical Procedure: Operation Date: 01/13/25 07:40 Proposed Procedure Side Surgeon p Cystoscopy with Fulguration, Bladder Biopsy Francisco J Harris MD Meds Allergies and Home Medications Allergies Allergy/AdvReac Type Severity Reaction Status Date / Time Penicillins Allergy Unknown Other (See Verified 01/13/25 06:30 Comment) Home Medication ?Medication ?Instructions ?Recorded khxepcy-pkkfwukxqocwg-pniqkair 250 1 tab PO DIRECTE D 11/14/22 mg-250 mg-65 mg tablet (Excedrin Migraine) sildenafil 100 mg tablet (Viagra) 100 mg PO DAILY PRN sexual 12/02/24 activity #10 tabs Current Visit Medications: Current Medications Generic Name Dose Route Start Last Admin Trade Name Freq PRN Reason Stop Dose Admin Ringer's Solution 1,000 mls @ 80 mls/hr 01/13/25 06:00 01/13/25 06:50 IV 01/13/25 23:59 80 mls/hr INFUSION RAFFY Administration Cefazolin Sodium/Dextrose 2 gm in 50 mls @ 100 mls/hr 01/13/25 06:00 Ancef Duplex IVPB 01/13/25 23:59 PREOP RAFFY IV Miscellaneous Supplies 1 each 01/13/25 06:00 Iv Access IV 01/13/25 23:59 DIRECTED RAFFY Sodium Chloride 0 ml 01/13/25 06:00 Normal Saline Flush 10 Ml Syr IV 01/13/25 23:59 PRN PRN Sodium Chloride 0 ml 01/13/25 06:00 Normal Saline 10 Ml Vial IJ 01/13/25 23:59 DIRECTED PRN Sterile Water 0 ml 01/13/25 06:00 Water,Injection,Sterile 10 Ml Vial IJ 01/13/25 23:59 DIRECTED PRN PFSH Active Problems Active Problems: Problem Status Onset Code Gross hematuria Acute R31.0 Hyperlipidemia Acute E78.5 Anemia Chronic D64.9 Hyperglycemia Acute R73.9 Fatigue Acute R53.83 Urinary hesitancy Acute R39.11 Lung nodule Acute R91.1 Pulmonary nodules Acute R91.8 Left testicular pain Acute N50.812 Skin lesion Acute L98.9 Diarrhea Acute R19.7 Hematochezia Acute K92.1 Radiation enteritis Acute K52.0 History of insertion of tunneled central venous catheter (CVC) with port Acute Z98.890 Hypomagnesemia Acute ~11/2022 E83.42 Bladder cancer Acute C67.9 Corns and callosities Acute L84 Medical History Medical History (Updated 01/13/25 @ 06:53 by Francisco J Harris MD) Bladder mass Surgical History Surgical History History of colonoscopy (~03/2023) path sent Port-A-Cath in place (~10/2022) Removed History of transurethral resection of bladder tumor (TURBT) Last chemo/radiation tx per pt was 01/07/23 Hx of cystoscopy (~04/26/24) 04/26/24 Cystoscopy, bladder w/ fulguration of bx site.HE 10/31/23-normal biopsy ,normal cytology-next cystoscopy [address] Harris Tobacco Smoking/Tobacco Use Status: Former Tobacco Use Passive smoking exposure: No Second hand exposure: No Alcohol Alcohol Intake: current Alcohol intake frequency: a few times a month Alcohol type: wine Substance Use Substance use: Occasionally Substance use type: marijuana Vital Signs and Lab Results Vital Signs Most Recent Vital Signs in EMR: Most Recent Vital Signs Temp Pulse Resp BP Pulse Ox 36.4 C L 77 16 107/86 98 01/13/25 06:15 01/13/25 06:15 01/13/25 06:15 01/13/25 06:15 01/13/25 06:15 Anesthesia Assessment and Plan Anesthesia History Personal History: No History of Anesthesia Complications Family History: No Family History of Anesthesia Complications Exercise Tolerance Exercise Tolerance: Metabolic Equivalents>4 Pertinent Negatives Pertinent Negatives: No Symptoms of GERD, No Major Cardiovascular Symptoms or Complaints and No Major Pulmonary Symptoms or Complaints Cardiac & Pulmonary Exam Cardiac Exam: Normal S1/S2 Heart Sounds Pulmonary Exam: Clear Bilateral Breath Sounds Implantable Cardiac Device Does patient have a Pacemaker or an ICD?: No Airway Exam Known Difficult Airway: No Mallampati Class: 2 Mouth Opening: Normal (> 3cm) Thyromental Distance: Greater than 3 cm Neck Range of Motion: Full ROM Neck Circumference: Normal Teeth Condition: Normal Dentition and Generalized Poor Dentition ASA Classification ASA Score: ASA 2 Emergency Case?: No NPO Status NPO Status: NPO Clears >2 hours, Solids >8 hours Anesthesia Plan Resuscitation Status: Full Code Anesthesia Technique: General Anesthesia Airway Planned: Natural Airway Monitors Used: Standard Monitors Preoperative Comments:: Discussed September 2024 anesthetic with patient. Pleased with level of anesthesia, same plan for today.
[2025-01-13 07:10] VITALS: BMI 23.8
[2025-01-13] MEDS: ceFAZolin 2 GM/50 ML BAG IVPB (07:30)
--- NOTE | 2025-01-13 07:48 | BLADDER_PTH ---
PATIENT: Shadi Castaneda LOC: [facility] U#:[id number] AGE/SX: 69/M ROOM: RE01/13/[address]: Francisco J Harris MD : [id number] BED: DIS: 01/13/2025 SPEC #: [id number] RECD: 01/13/25 12:25 STATUS: GISELLE REBoris #: [id number] MED: 01/13/25 07:[address]: Francisco J Harris DEPT: Surgical Specimen RECD BY: Suyapa Ortega ENTERED: 01/13/25 12:26 SP TYPE: Bladder OTHR DR: Chastity Amor APRN Tissues: 1 - BLADDER BIOPSY Procedures: GROSS AND MICRO LEVEL 4 IMMUNOPEROXIDASE STAIN DECALCIFICATION Comments: [id number]
[2025-01-13] MEDS: Lidocaine 2% Jelly 6 ML SYR (07:53)
--- NOTE | 2025-01-13 08:00 | RT.EKG_ITS ---
APPROVED REPORT Exam: Resting ECG Reason for Exam: Baseline EKG Patient Location: O HR:66 bpm ECG Measurements Heart Rate 66 AXIS CA 192 P 49 QRSd 93 QRS 54 QT 398 T 42 QTc 419 Conclusion Sinus arrhythmia...V-rate 51- 83, variation>10% Otherwise normal ECG
--- NOTE | 2025-01-13 08:01 | W.PM.DSUDISC ---
Date of service: 01/13/25 Discharge Plan Disposition Patient Disposition: Home Condition: Stable Discharge Details Reason For Visit: cystoscopy Attending Provider: Francisco J Harris Primary Care Provider: Chastity Amor Home Meds and New Rx's Prescriptions: No Action sildenafil [Viagra] 100 mg tablet 100 mg PO DAILY PRN (Reason: sexual activity) Qty: 10 12RF Rx Instructions: administer 30 minutes to 4 hours before activity zbiejqk-nkmgkztqkexwz-gosmcnth [Excedrin Migraine] 250-250-65 mg Tablet 1 tab PO DIRECTED Discharge Instructions Additional Instructions: Followup 1 to 2 weeks to review biopsy results Activity:: Activity as Tolerated Shower/Bathe:: 24 hours Diet:: As Tolerated Discharge Orders Discharge Orders: Discharge Order (Routine); Ordered 01/13/25 Ordered By: Francisco J Harris DS: Diagnosis Discharge Diagnosis (1) Bladder cancer: Status: Acute (2) Gross hematuria: Status: Acute
[2025-01-13 08:03] VITALS: BP 105/57; PULSE 77; RESP 12; TEMP 36.2; O2SAT 97
--- NOTE | 2025-01-13 08:03 | W.PM.DSUDISC ---
Date of service: 01/13/25 Discharge Plan Disposition Patient Disposition: Home Condition: Stable Discharge Details Reason For Visit: cystoscopy Attending Provider: Francisco J Harris Primary Care Provider: Chastity Amor Home Meds and New Rx's Prescriptions: No Action sildenafil [Viagra] 100 mg tablet 100 mg PO DAILY PRN (Reason: sexual activity) Qty: 10 12RF Rx Instructions: administer 30 minutes to 4 hours before activity gznnupa-bgiclfwcbdxrs-wytyvykk [Excedrin Migraine] 250-250-65 mg Tablet 1 tab PO DIRECTED Discharge Instructions Additional Instructions: Followup 1 to 2 weeks to review biopsy results Activity:: Activity as Tolerated Shower/Bathe:: 24 hours Diet:: As Tolerated Discharge Orders Discharge Orders: Discharge Order (Routine); Ordered 01/13/25 Ordered By: Francisco J Harris DS: Diagnosis Discharge Diagnosis (1) Bladder cancer: Status: Acute (2) Gross hematuria: Status: Acute
--- NOTE | 2025-01-13 08:04 | W.PM.OP ---
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 He was treated with Tri modal therapy and is currently followed with radiographic imaging and cystoscopy. He has had persistent recurrent episodes of gross hematuria with clots. He presents for cystoscopy with possible transurethral resection of recurrent bladder tumor. Findings: flat erythematous areas c/w radiation cystitis Procedure Description: The patient was given preoperative IV antibiotics and brought to the operating room on 01/13/2025. After successful induction of general anesthesia without intubation, he was placed in the dorsal lithotomy position. His genitalia was prepped and draped. 2% Xylocaine jelly was instilled into the urethra. A 22 [place]er rigid cystoscope was passed through the urethra into the bladder. The urethra and bladder were inspected with a 30 degree lens. The pendulous, bulbar and membranous urethra all appeared normal with no strictures. The prostatic urethra showed some lateral lobe enlargement but there was no active bleeding from the prostatic mucosa. The bladder neck was entered and the bladder mucosa was inspected. No clot was seen within the bladder. Both ureteral orifices appeared normal. No blood was seen coming from either side. On the left posterior bladder wall, there was evidence of a scar from her previous resection. There was some stone debris attached to the center portion of the scar. There was some erythematous mucosa adjacent to the scar. The mucosa was flat and was oozing some blood product. The area had the appearance more of radiation cystitis rather than a recurrent tumor. Biopsies were taken of the abnormal mucosa using cold cup biopsy forceps. The biopsies were sent to the laboratory for permanent section. I then removed the cystoscope and passed a 24 [place] resectoscope sheath. I used the resectoscope and bipolar cautery loop to cauterize any abnormal mucosa that I saw. Once hemostasis had been obtained, the bladder was emptied and the resectoscope was removed. The patient tolerated procedure well with no complications. Date of Procedure: 01/13/25
[2025-01-13 08:22] VITALS: BP 101/70; PULSE 71; RESP 15; TEMP 36.2; O2SAT 96
[2025-01-13] MEDS: Phenazopyridine 200 MG TAB PO (08:41)
--- NOTE | 2025-01-13 08:45 | W.ANESPOSTOP ---
Postoperative Evaluation Date, Time and Location Date Performed: 01/13/25 Time Performed: 08:45 Patient Location: Day Surgery Unit Vital Signs Most Recent Imported Vital Signs: Most Recent Vital Signs Temp Pulse Resp BP Pulse Ox 36.2 C L 71 15 101/70 96 01/13/25 08:22 01/13/25 08:22 01/13/25 08:22 01/13/25 08:22 01/13/25 08:22 Pain Score Most Recent Pain Score: Most Recent Pain Score Pain Level 0 01/13/25 08:22 Assessment Mental Status: Awake (Alert & Oriented to Patient Baseline) Airway and Respiratory Function: Patent airway with normal (patient baseline) respiratory exam Cardiovascular Function: Hemodynamically Stable Hydration Status: Adequately Hydrated Nausea & Vomiting: No Nausea or Vomiting Pain: Pt. Denies Any Pain Peripheral Nerve Block: Patient did not receive a nerve block Postoperative Comments:: EKG obtained in DSU post procedure. Discussed findings of Sinus arrhythmia with the patient and Dr. Harris made aware.
== END 2025-01-13 09:20 | disposition home or self-care (01) ==
PROVIDERS: PCP Nurse Practitioner; Visit Provider Urology
PROC: 0TBB8ZX Excision of Bladder, Via Natural or Artificial Opening Endoscopic, Diagnostic (ICD-10-PCS; CPT 52204; principal; 2025-01-13 07:30)
DX: R31.0 Gross hematuria (principal); C67.8 Malignant neoplasm of overlapping sites of bladder
CPT/HCPCS: 52224; 88305; 88311; 88361; J0690; J1100; J1885; J2003; J2250; J2405; J2704; J3010

== ENCOUNTER 2025-02-19 10:46 | Outpatient (CLI) | payer MEDICARE, SELFPAY ==
--- NOTE | 2025-02-19 | DI.RAD_ITS ---
Exam(s) XR KNEE LT 3V AP,LAT,YIMI EXAM: XR KNEE LT 3V AP,LAT,YIMI CLINICAL HISTORY: acute pain of left knee ICD-10: M25.562. TECHNIQUE: 2D digital imaging was performed of the left knee. Three images were obtained. AP, lateral and PA tunnel views were obtained. COMPARISON: No exams were available for comparison FINDINGS: BONES: No acute fracture is present. No bony destructive lesion is seen. JOINTS: There is mild spurring of the posterior patella. There is a small joint effusion. No loose body. SOFT TISSUE: Normal. IMPRESSION: 1. There is a small joint effusion. 2. Minimal degenerative changes are seen in the knee. 3. There is no acute fracture or dislocation. 4. The preliminary [facility] report was reviewed. DATA REPOSITORY: RADIATION DOSE DELIVERED:
--- NOTE | 2025-02-19 12:15 | DI.[facility]_ITS ---
PROCEDURE INFORMATION: Exam: XR Left Knee Exam date and time: 02/19/2025 11:29 AM Age: 69 years old Clinical indication: Pain; Knee; Left TECHNIQUE: Imaging protocol: Radiologic exam of the left knee. Views: 3 views. COMPARISON: No relevant prior studies available. FINDINGS: Bones/joints: Bony mineralization is within normal limits for the patient's age. There is no acute fracture or dislocation. Soft tissues: There is probable small joint effusion noted. There is mild prepatellar edema. . IMPRESSION: 1. No acute fracture. 2. Small joint effusion and prepatellar edema Dictated and Authenticated by: Emilie Milner MD. Orderin Judi Mora MD
== END 2025-02-19 11:06 ==
PROVIDERS: PCP Nurse Practitioner; Visit Provider Physician Assistant Medical
DX: M25.562 Pain in left knee (principal)
CPT/HCPCS: 73562

== ENCOUNTER 2025-02-19 16:04 | Outpatient (REF) | payer MEDICARE, SELFPAY ==
[2025-02-21 11:27] LABS: Lyme Ab w Rflx to Lyme Confirm Negative (Negative)
== END 2025-02-19 16:05 | disposition home or self-care (01) ==
LOC: LBN 16:04
PROVIDERS: PCP Nurse Practitioner; Visit Provider Physician Assistant Medical
DX: M25.562 Pain in left knee (principal)
CPT/HCPCS: 86618

== ENCOUNTER → 2025-02-22 10:43 | Outpatient (BNVA) | payer MEDICARE, SELFPAY | PROVIDERS: PCP Nurse Practitioner; Referring Provider Nurse Practitioner; Visit Provider Urology | DX: N30.41 Irradiation cystitis with hematuria (principal); Z85.51 Personal history of malignant neoplasm of bladder | CPT/HCPCS: 99213 ==

== ENCOUNTER → 2025-02-28 11:59 | Outpatient (BNVA) | payer MEDICARE, SELFPAY | PROVIDERS: PCP Nurse Practitioner; Referring Provider Nurse Practitioner; Visit Provider Urology | DX: N30.41 Irradiation cystitis with hematuria (principal); Z85.51 Personal history of malignant neoplasm of bladder | CPT/HCPCS: 99213 ==

== ENCOUNTER → 2025-04-11 08:26 | Outpatient (BNVA) | payer MEDICARE, SELFPAY | PROVIDERS: PCP Nurse Practitioner; Referring Provider Nurse Practitioner; Visit Provider Urology | DX: N30.41 Irradiation cystitis with hematuria (principal) | CPT/HCPCS: 99213 ==